=== PATIENT | male | born 2000 | race Caucasian/White ===

== ENCOUNTER 2022-11-13 22:22 | Emergency (ER) | payer MEDICAID, SELFPAY ==
[2022-11-13 22:24] VITALS: BP 141/87; PULSE 72; RESP 17; TEMP 36.6; O2SAT 97; BMI 27.3
--- NOTE | 2022-11-13 22:38 | XR_ITS ---
PROCEDURE INFORMATION: Exam: XR Chest Exam date and time: 11/13/2022 11:06 PM Age: 22 years old Clinical indication: Pain; Left-sided; Additional info: Left anterior lower chest wall pain TECHNIQUE: Imaging protocol: Radiologic exam of the chest. Views: 1 view. COMPARISON: No relevant prior studies available. FINDINGS: Lungs: Normal pulmonary expansion. Pulmonary vasculature grossly normal. No gross pulmonary infiltrates or edema pattern. Pleural spaces: No pleural effusion. No pneumothorax. Heart/Mediastinum: Heart size normal. No tracheal/mediastinal shift. Bones/joints: No acute osseous abnormalities are identified. IMPRESSION: No acute thoracic process.
[2022-11-13 22:41] LABS: Microscopic, Urine URINE MICROSCOPIC (MICROSCOPIC)
--- NOTE | 2022-11-13 22:46 | HMH.EDGENADL ---
Discharge Plan Disposition Patient Disposition: Home, Self-Care Chief Complaint: Urogenital-Male Prescriptions Prescriptions: No Action No Known Home Medications Referrals Follow up/Referrals: Provider,MD Estrella [Primary Care Provider] - See instructions Clinical Impressions Clinical Impression: Chest pain, pleuritic Instructions Patient Instructions: DI for Urinary Tract Infection (UTI), DI for Urinary Tract Infection in Children Discharge ED Provider: Wesley Sheriff General Adult HPI General Chief complaint: Urogenital-Male Stated complaint: Left side pain, shelton when urinate Time Seen by Provider: 11/13/22 22:33 Mode of Arrival: Family Vehicle Source of Information: Patient Limitations: No Limitations Description of Symptoms (Recalled from ER Triage Doc. by RN): Pt c/o L upper abd pain that has been present for 1 month. States it is painful under the ribs and when he sits up or coughs. Denies any SOA or dyspnea. Denies any fever, chills, or n/v/d. He reports burning and pain with urination. He is also concerned that his urine id dark brown or mt dew colored despite drinking large amount of water. Denies any penile discharge. History of Present Illness Onset (ago): month(s) (1) Location: chest (left) Severity: mild Quality: burning Related Data Home Medications Medication Instructions Recorded Confirmed No Known Home Medications 11/13/22 11/13/22 Allergies Allergy/AdvReac Type Severity Reaction Status Date / Time No Known Allergies Allergy Unverified 07/01/17 15:22 [facility] Disclaimer: The information contained in this section may have been updated after the patient was seen, as this information can be updated by other users. Social History Smoking Status: Current every day smoker alcohol intake: current current occupational status: employed Travel in the last 8 weeks: None ROS Obtained: Yes All systems reviewed & no additional complaints except as documented Physical Exam General General appearance: alert and in no apparent distress Head Head exam: atraumatic and normocephalic Eye Eye exam: Present normal appearance ENT ENT exam: Present normal exam Neck Neck exam: Present normal inspection Chest Chest inspection: Present tenderness (Left anterior lower) Respiratory Respiratory exam: Present normal lung sounds bilaterally; Absent respiratory distress Cardiovascular Cardiovascular exam: Present regular rate and normal rhythm Abdominal Exam Abdominal exam: Present soft; Absent distention or tenderness Extremities Exam Extremities exam: Present normal inspection Neurological Exam Neurological exam: Present alert, oriented X3 and CN II-XII intact Medical Decision Making Medical Records MR Comment: 22-year-old white male presents with a 1 month history of pain under his ribs. The patient notes that its worse with coughing or deep breath. He is also had some burning urination. Evaluations included a chest x-isaura which is interpreted as no acute disease also CBC CMP and urinalysis all of which are normal. Patient is lying comfortably in no distress. He has no primary care but we have encouraged that he will need to establish with 1 in the event that more testing needs to be scheduled and done or that a referral to another specialist may need to be done. Patient and his are in attendance both understand and are in agreement with this questions are answered and he is to follow-up with the primary care. Joss Inquiry Pt receiving controlled substance: No Joss was queried for this patient: No Vital Signs: 11/13/22 22:24 11/13/22 23:30 Temperature 97.9 F Temperature Source Oral Pulse Rate 62 Pulse Rate [Right] 72 Respiratory Rate 17 18 Blood Pressure 129/62 Blood Pressure [Right Arm] 141/87 H Blood Pressure Mean 84 Blood Pressure Mean [Right Arm] 105 Blood Pressure Source [
[2022-11-13 22:51] LABS: MANUAL DIFFERENTIAL MANUAL DIFFERENTIAL (MANUAL DIFF)
[2022-11-13 22:52] LABS: Appearance,Urine SL CLOUDY (Clear); Bilirubin,Urine Negative (Negative); Blood, Urine Negative (Negative); Color,Urine YELLOW (Yellow); Glucose,Urine (UA) Negative (Negative); Ketones,Urine Negative (Negative); Leukocyte Esterase,Urine Negative (Negative); Nitrate,Urine Negative (Negative); Protein,Urine Negative (Negative); Specific Gravity, Urine 1.015 (1.005-1.030); Urobilinogen,Urine 0.2 EU/dl (0.2)
[2022-11-13 22:54] LABS: Basophils % 0.6 % (0.1-2.0); Eosinophils # 0.1 K/mm3 (0.0-0.4); Eosinophils % 1.3 % (0.1-12.0); Hematocrit 43.5 % (42.0-52.0); Lymphocytes # 2.5 K/mm3 (0.7-4.5); Lymphocytes % 32.6 % (10-50); Mean Corpuscular HGB Conc 32.3 g/dL (31.8-35.4); Mean Corpuscular Hemoglobin 26.5 pg (27.0-31.2); Mean Corpuscular Volume 82.2 fl (80-94); Mean Platelet Volume 6.3 fl (7.4-10.4); Monocytes # 0.4 K/mm3 (0.1-1.0); Monocytes % 5.8 % (1.7-9.3); Neutrophils # 4.5 K/mm3 (1.8-7.8); Neutrophils % 59.7 % (37.0-80.0); Platelet Count 249 K/mm3 (142-424); Red Blood Count 5.29 M/mm3 (4.60-6.20); Red Cell Distribution Width 14.1 % (11.5-17.5); White Blood Count 7.6 K/mm3 (4.8-10.8)
[2022-11-13 22:58] LABS: Chloride 98 mmol/L (98-107); Sodium 136 mmol/L (136-145)
[2022-11-13 22:59] LABS: Potassium 3.9 mmoL/L (3.5-5.1)
[2022-11-13 23:01] LABS: Alanine Aminotransferase 24 U/L (12-78); Albumin Level 4.2 g/dl (3.5-5.0); Albumin/Globulin Ratio 1.7 (1.1-1.8); Alkaline Phosphatase 66 U/L (38-126); Anion Gap 15.9 mEq/L (5-15); Aspartate Amino Transferase 27 U/L (17-59); Bilirubin,Total 0.2 mg/dl (0.2-1.3); Blood Urea Nitrogen 20 mg/dl (9-20); Carbon Dioxide 26 mmol/L (22.0-30.0); Creatinine Clearance Estimated 130 mL/min (50-200); Estimated Glomerular Filt Rate 93 ml/min (>60); GFR (African American) 113 ML/MIN (>60); Globulin 2.5 g/dL (1.3-3.2); Total Protein,Serum 6.7 g/dl (6.3-8.2)
[2022-11-13 23:02] LABS: Calcium 8.8 mg/dl (8.4-10.2); Glucose 108 mg/dl (74-100)
[2022-11-13 23:07] LABS: Amorphous Sediment,Urine 1+ /lpf
[2022-11-13 23:20] LABS: Lymphocytes % 41 % (10-50); Monocytes % 4 % (2-9); Neutrophils % 55 % (42-76); Platelet Estimate Normal; RBC Morphology Normal; Total Cells Counted 100
[2022-11-13 23:30] VITALS: BP 129/62; PULSE 62; RESP 18; O2SAT 99
[2022-11-14 00:55] VITALS: BP 112/75; PULSE 73; RESP 16; TEMP 36.8; O2SAT 98
== END 2022-11-14 01:03 | disposition home or self-care (01) ==
PROVIDERS: Emergency Provider Emergency Medicine
DX: R07.81 Pleurodynia (principal); R10.12 Left upper quadrant pain; R30.0 Dysuria; F17.200 Nicotine dependence, unspecified, uncomplicated
CPT/HCPCS: 71045; 80053; 81001; 85007; 85014; 85018; 85048; 85049; 99284; 99285

== ENCOUNTER 2025-04-11 14:20 | Outpatient (CLI) | payer OTHER, SELFPAY ==
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
--- OUTSIDE RECORDS SUMMARY | 2025-03-10 12:00 | XMS_ITS | Encounter Summary ---
Author Organization Healthcare Address [address] [place] [address] Care Team Providers Care Sign Painter Helper Name Role Phone Pcp, No Primary Care Provider Unavailflavio e Ebony Ross LPN Unavailable Unavailable Encounter Details Date Type Department Care Team (Latest Contact Info) Description 03/10/2025 12:00 PM EDT - 03/10/2025 11:59 PM EDT Hospital En[facility] [address], [address] [place] [address] Pain in scapula; Clavicle pain Discharge Disposition: Home or Self Care Social History Tobacco Use Types Packs/Day Years [...] any time in the past 12 m [facility], were you homeless or living in a penitentiary (including now)? Patient declined 03/04/2025 Utilities Answer Date Recorded In the past 12 months has th e [employer] gas, oil, or water [employer] threatened to shut off services in your home? Patient declined 03/04/2025 Sex and Gender Information Value Date Recorded Sex Assigned at Not on file Legal Sex Male 7:37 PM EDT Gender Identity Not on file Sexual Orientation Not on file documented as of this encounter Medications at Time of Discharge acetaminophen (Tylenol) 500 MG tablet Take 2 tablets by mouth every 6 hours. 01/27/2025 baclofen (Lioresal) 10 MG tablet 02/22/2025 bisacodyl (Dulcolax) 10 MG suppository Insert 1 suppository into the rectum daily. 12 suppository 01/28/2025 enoxaparin (Lovenox) 30 MG/0.3ML solution prefilled syringe Inject 0.3 mL under the skin 2 times a day. 01/27/2025 escitalopram (Lexapro) 10 MG tablet Take 1 tablet by mouth daily. 01/28/2025 famotidine (Pepcid) 20 MG tablet 02/22/2025 hydrOXYzine pamoate (Vistaril) 25 MG capsule Take 1 capsule by mouth every 6 hours as needed for anxiety. 30 capsule 01/27/2025 lactulose (Chronulac) 10 GM/15ML oral solution 02/22/2025 Lidocaine Pain Relief 4 % patch 02/22/2025 lubiprostone (Amitiza) 24 MCG capsule 02/22/2025 melatonin tablet Take 3 tablets by mouth nightly. 01/27/2025 methocarbamol (Robaxin) 500 MG tablet Take 2 tablets by mouth every 6 hours. 01/27/2025 mirtazapine (Remeron) 15 MG tablet Take 1 tablet by mouth nightly. 01/27/2025 naloxone (Narcan) 4 mg/0.1 mL nasal spray 1. Give 1 spray in nostril for no/slow breathing or cannot wake after opioid use 2. Call 911 3. Repeat in other nostril if symptoms continue 1 each 01/27/2025 polyethylene glycol (Miralax) 17 GM/SCOOP powder 02/22/2025 QUEtiapine (SEROquel) 50 MG tablet Take 1 tablet by mouth 2 times a day AND 3 tablets nightly. 01/27/2025 senna-docusate (Victorina-Colace) 8.6-50 MG tablet Take 1 tablet by mouth 2 times a day. 01/27/2025 solifenacin (VESIcare) 10 MG tablet 02/22/2025 traZODone (Desyrel) 100 MG tablet 02/22/2025 traZODone (Desyrel) 50 MG tablet Take 1 tablet by mouth nightly. 01/27/2025 oxyCODONE (Roxicodone) 5 MG immediate release tablet Take 1 tablet by mouth every 8 hours as needed for moderate pain for up to 21 days. 63 tablet 03/04/2025 03/25/20 25 gabapentin (Neurontin) 300 MG capsule Take 1 capsule by mouth every 8 hours. 01/27/2025 04/06/20 25 gabapentin (Neurontin) 600 MG tablet Take 1 tablet by mouth 3 times a day. 02/22/2025 04/06/20 25 oxyCODONE (Roxicodone) 5 MG immediate release tablet Take 1 tablet by mouth as needed for moderate pain or severe pain. 03/08/2025 04/06/20 documented as of this encounter Plan of Treatment Upcoming Encounters Date Type Department Care Team (Late st Contact Info) Description 04/21/2025 1:50 PM EDT Appointment [facility] Radiology [address] [place] [address] 04/21/2025 2:30 PM EDT Office Visit [facility] Orthopaedic Surgery & Sports Medicine [address] [place] [address] Quan Martinez MD [address] [place] [address] 04/22/2025 2:30 PM EDT Office Visit [facility] [address] [place] [address] Dayna Cuevas 05/11/2025 2:00 PM EDT Office Visit [facility] [address] [facility] [place] [address] Bina Mercado DO [address] [facility] [address] [place] [address] 06/06/2025 2:30 PM EST Office Visit [facility] [address] [place] [address] Syd Vargas MD [address] [facility] 2nd [place] [address] 07/01/2025 12:40 PM EST Office Visit [facility] [address] [place] [address] Holland Mehta MD [address] [place] [address] documented as of this encounter Procedures Procedure Name Priority Date/Time Associated Diagnosis Comments XR SCAPULA LEFT Routine 03/10/2025 12:45 PM EDT Pain in scapula XR CLAVICLE LEFT Routine 03/10/2025 12:4 5 PM EDT Clavicle pain documented in this encounter Results * XR Clavicle Left (03/10/2025 12:45 PM EDT) Anatomical Region Laterality Modality Body, Clavicle Left Digital Radiogra phy Impressions 03/10/2025 1:01 PM EDT Redemonstration of healing midclavicular fracture with increased superior displacement. Healing nondisplaced scapular body fracture in unchanged alignment. CRITICAL RESULT: No. COMMUNICATION: Per this written report. Drafted by Ariel Flores on 03/10/2025 1:00 PM Final report signed by Ariel Flores on 03/10/2025 1:01 PM Narrative 03/10/2025 1:01 PM EDT CLINICAL INDICATION: pain TECHNIQUE: XR SCAPULA LEFT, XR CLAVICLE LEFT COMPARISON: December 27, 2024 FINDINGS: Redemonstration of mid clavicular fracture with mild increased radial displacement. Callus formation along the fracture likely represents healing. Minimally displaced fracture of the body of scapula with increased osseous bridging likely represents healing. Fracture is in unchanged alignment. No newly visualized fractures. No significant soft tissue swelling. Partially visualized spinal fusion hardware with no definite evidence of hardware loosening or failure. Procedure Note Airel Flores MD - 03/10/2025 CLINICAL INDICATION: pain TECHNIQUE: XR SCAPULA LEFT, XR CLAVICLE LEFT COMPARISON: December 27, 2024 FINDINGS: Redemonstration of mid clavicular fracture with mild increased radialdisplacement. Callus formation along the fracture likely representshealing. Minimally displaced fracture of the body of scapula withincreased osseous bridging likely represents healing. Fracture is inunchanged alignment. No newly visualized fractures. No significant softtissue swelling. Partially visualized spinal fusion hardware with nodefinite evidence of hardware loosening or failure. IMPRESSION: Redemonstration of healing midclavicular fracture with increased superiordisplacement. Healing nondisplaced scapular body fracture in unchanged alignment. CRITICAL RESULT: No. COMMUNICATION: Per this written report. Drafted by Ariel Flores on 03/10/2025 1:00 PM Final report signed by Ariel Flores on 03/10/2025 1:01 PM us Sofía ODONNELL IMG XR PROCEDURES Final Resu lt * XR Scapula Left (03/10/2025 12:45 PM EDT) Anatomical Region Laterality Modality Body, Scapula Left Digital Radiogra phy Impressions 03/10/2025 1:01 PM EDT Redemonstration of healing midclavicular fracture with increased superior displacement. Healing nondisplaced scapular body fracture in unchanged alignment. CRITICAL RESULT: No. COMMUNICATION: Per this written report. Drafted by Ariel Flores on 03/10/2025 1:00 PM Final report signed by Ariel Flores on 03/10/2025 1:01 PM Narrative 03/10/2025 1:01 PM EDT CLINICAL INDICATION: pain TECHNIQUE: XR SCAPULA LEFT, XR CLAVICLE LEFT COMPARISON: December 27, 2024 FINDINGS: Redemonstration of mid clavicular fracture with mild increased radial displacement. Callus formation along the fracture likely represents healing. Minimally displaced fracture of the body of scapula with increased osseous bridging likely represents healing. Fracture is in unchanged alignment. No newly visualized fractures. No significant soft tissue swelling. Partially visualized spinal fusion hardware with no definite evidence of hardware loosening or failure. Procedure Note Ariel Flores MD - 03/10/2025 CLINICAL INDICATION: pain TECHNIQUE: XR SCAPULA LEFT, XR CLAVICLE LEFT COMPARISON: December 27, 2024 FINDINGS: Redemonstration of mid clavicular fracture with mild increased radialdisplacement. Callus formation along the fracture likely representshealing. Minimally displaced fracture of the body of scapula withincreased osseous bridging likely represents healing. Fracture is inunchanged alignment. No newly visualized fractures. No significant softtissue swelling. Partially visualized spinal fusion hardware with nodefinite evidence of hardware loosening or failure. IMPRESSION: Redemonstration of healing midclavicular fracture with increased superiordisplacement. Healing nondisplaced scapular body fracture in unchanged alignment. CRITICAL RESULT: No. COMMUNICATION: Per this written report. Drafted by Ariel Flores on 03/10/2025 1:00 PM Final report signed by Ariel Flores on 03/10/2025 1:01 PM us Sofía ODONNELL IMG XR PROCEDURES Final Resu lt documented in this encounter Visit Diagnoses Diagnosis Pain in scapula Pain in joint, shoulder region Clavicle pain Disorder of bone and cartilage, unspecified documented in this encounter Additional Health Concerns Assessment Noted Time A fall risk assessment has been complete d for the patient 03/10/2025 12:58 PM EDT A Body Mass Index follow-up plan has been documented for the patient 03/19/2025 12:30 PM EDT documented as of this encounter Care Teams Sign Painter Helper Relationship Specialty Start Date End Date Pcp, Bhumi [address] [place] [address] PCP - General Family Medicine 11/26/24 03/27/25 Ebony Ross LPN VALUE-[employer]ED [place] [address] TCM Nurse 02/08/25 03/26/25 documented as of this encounter
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
--- OUTSIDE RECORDS SUMMARY | 2025-03-18 11:33 | XMS_ITS | Encounter Summary ---
Author Organization [facility] Address [address] [place] [address] Care Team Providers Care Photograph Editor Name Role Phone Pcp, No Primary Care Provider Unavailflavio e Ebony Ross LPN Unavailable Unavailable Encounter Details Date Type Department Care Team (Latest Contact Info) Description 03/18/2025 11:33 AM EDT - 03/18/2025 11:59 PM EDT Hospital [facility] [address] [place] [address] S/P cervical spinal fusion Discharge Disposition: Home or Self Care Social [...] any time in the past 12 m [facility], were you homeless or living in a [facility] (including now)? Patient declined 03/04/2025 Utilities Answer Date Recorded In the past 12 months has th e [employer], gas, oil, or water [email or web address] threatened to shut off services in your [...] moderate pain or severe pain. 03/08/2025 04/06/20 25 documented as of this encounter Plan of Treatment Upcoming Encounters Date Type Department Care Team (Late st Contact Info) Description 04/21/2025 1:50 PM EDT Appointment [facility] Radiology [address] [place] [address] 04/21/2025 2:30 PM EDT Office Visit [facility] Orthopaedic Surgery & Sports Medicine [address] [place] [address] Quan Martinez MD [address] [place] [address] 04/22/2025 2:30 PM EDT Office Visit [facility] [address] [place] [address] aDyna Cuevas 05/11/2025 2:00 PM EDT Office Visit [facility] [address] [facility] [place] [address] Bina Mercado DO [address] [facility] [address] [place] [address] 06/06/2025 2:30 PM EST Office Visit [facility] [address] [place] [address] Syd Vargas MD [address] [place] [phone] 07/01/2025 12:40 PM EST Office Visit [facility] [address] [place] [address] Holland Mehta MD [address] [place] [address] documented as of this encounter [...] cutting tasks x 3 visits. Occupational Therapy No Dayna Cuevas documented as of this encounter Procedures Procedure Name Priority Date/Time Associated Diagnosis Comments XR CERVICAL SPINE 2 OR 3 VIEWS Routine 03/18/2025 11:46 AM EDT S/P cervical spinal fusion documented in this encounter Results * XR Cervical Spine 2 or 3 Views (03/18/2025 11:46 AM EDT) Anatomical Region Laterality Modality Spine, C-spine Digital Radiogra phy Impressions 03/18/2025 2:17 PM EDT No visualized hardware complication. Similar alignment of the C5 fracture with evidence of healing. CRITICAL RESULT: No. COMMUNICATION: Per this written report. Drafted by Zita Abraham MD on 03/18/2025 2:15 PM Final report signed by Zita Abraham MD on 03/18/2025 2:17 PM Narrative 03/18/2025 2:17 PM EDT CLINICAL INDICATION: fusion TECHNIQUE: XR CERVICAL SPINE 2 OR 3 VIEWS COMPARISON: Radiographs from 01/06/2025 FINDINGS: Posterior fixation hardware spanning from C2 through T2. The lobar cervical spine is not well-visualized on lateral view due to overlying soft tissue. Similar alignment of the C5 anterior body fracture with some evidence of healing. No suspicious vertebral soft tissue swelling. No visualized hardware complication. Procedure Note Zita Abraham MD - 03/18/2025 CLINICAL INDICATION: fusion TECHNIQUE: XR CERVICAL SPINE 2 OR 3 VIEWS COMPARISON: Radiographs from 01/06/2025 FINDINGS: Posterior fixation hardware spanning from C2 through T2. The lobarcervical spine is not well-visualized on lateral view due to overlyingsoft tissue. Similar alignment of the C5 anterior body fracture with someevidence of healing. No suspicious vertebral soft tissue swelling. Novisualized hardware complication. IMPRESSION: No visualized hardware complication. Similar alignment of the C5 fracturewith evidence of healing. CRITICAL RESULT: No. COMMUNICATION: Per this written report. Drafted by Zita Abraham MD on 03/18/2025 2:15 PM Final report signed by Zita Abraham MD on 03/18/2025 2:17 PM Akua Shaw MANAGER RECRUITING IMG XR PROCEDURES Final Re sult documented in this encounter Visit Diagnoses Diagnosis S/P cervical spinal fusion Arthrodesis status documented in this encounter Additional Health Concerns Assessment Noted Time A fall risk assessment has been complete d for the patient 03/18/2025 12:00 PM EDT A Body Mass Index follow-up plan has been documented for the patient 03/21/2025 9:00 AM EDT documented as of this encounter Care Teams Photograph Editor Relationship Specialty Start Date End Date Pcp, No [address] [place] [address] PCP - General Family Medicine 11/26/24 03/27/25 Ebony Ross LPN VALUE-BASED [place] [address] TCM Nurse 02/08/25 03/26/25 documented as of this encounter
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
--- NOTE | 2025-04-11 14:24 | XR_ITS ---
FINAL REPORT CLINICAL HISTORY: pain when urinating, baseline kub evaluation COMPARISON: None FINDINGS: A single view of the abdomen was obtained. There is a nonobstructive bowel gas pattern. There are no abnormally dilated loops of small bowel. There are no abnormal calcifications. There are screws securing the sacroiliac joints bilaterally. There is a sideplate and screws securing the symphysis pubis. There is an IM andrew in the proximal right femur. IMPRESSION: Postsurgical joint changes as above. No abnormal calcifications. Reviewed, Interpreted and Dictated by Vinicius Perry MD Transcribed by Nuris Ryan Authenticated and [facility]
--- OUTSIDE RECORDS SUMMARY | 2025-04-11 14:24 | XMS_ITS | Encounter Summary ---
Author Organization Healthcare Address [address] [place] [address] Care Team Providers Care Director Process Engineering Name Role Phone Pcp, No Primary Care Provider Unavailflavio e Ebony Ross LPN Unavailable Unavailable Encounter Details Date Type Department Care Team (Late st Contact Info) Description 03/08/2025 Telephone [facility] Discharge Clinic [address] [place] [phone] Sumi Marmolejo RN GS - Emergency Room Social History Tobacco Use Types Packs/Day Years [...] any time in the past 12 m [facility], were you homeless or living in a usp (including now)? Patient declined 03/04/2025 Utilities Answer Date Recorded In the past 12 months has th e [email or web address], gas, oil, or water [employer] threatened to shut off services in your home? Patient declined 03/04/2025 Sex and Gender Information Value Date Recorded Sex Assigned at Not on file Legal Sex Male 7:37 PM EDT Gender Identity Not on file Sexual Orientation Not on file documented as of this encounter Miscellaneous Notes * Telephone Encounter - Sumi Marmolejo RN - 03/08/2025 2:53 PM EDT Faxed HH orders to: [address] [address] P: [phone] Patient message sent to pt's mother to updated of referral sent to this location/company. documented in this encounter Plan of Treatment Upcoming Encounters Date Type Department Care Team (Late st Contact Info) Description 04/21/2025 1:50 PM EDT Appointment [facility]iology [address] [place] [address] 04/21/2025 2:30 PM EDT Office Visit [facility] Orthopaedic Surgery & Sports Medicine [address], [address] [place] [address] Quan Martinez MD [address] [place] [address] 04/22/2025 2:30 PM EDT Office Visit [facility] [address] [place] [address] Dayna Cuevas 05/11/2025 2:00 PM EDT Office Visit Physical Medicine & Rehabilitation Clinic at [facility] [address] [facility] [place] [address] Bina Mercado DO [address] [facility] [address] [place] [address] 06/06/2025 2:30 PM EST Office Visit [facility] [address] [place] [address] Syd Vargas MD [address] [facility] 2nd [place] [address] 07/01/2025 12:40 PM EST Office Visit [facility] [address] [place] [address] Holland Mehta MD [address] [place] [address] documented as of this encounter Visit Diagnoses Not on filedocumented in this encounter Additional Health Concerns Assessment Noted Time A Body Mass Index follow-up plan has been documented for the patient 03/11/2025 10:42 AM EDT documented as of this encounter Care Teams Director Process Engineering Relationship Specialty Start Date End Date Pcp, [place] [address] PCP - General Family Medicine 11/26/24 03/27/25 Ebony Ross, [employer] [place] [address] TCM Nurse 02/08/25 03/26/25 documented as of this encounter
--- OUTSIDE RECORDS SUMMARY | 2025-04-11 14:25 | XMS_ITS | Encounter Summary ---
Author Organization Healthcare Address [address] [place] [address] Care Team Providers Care Tool Specialist Name Role Phone Pcp, No Primary Care Provider Unavailflavio e Ebony Ross LPN Unavailable Unavailable Encounter Details Date Type Department Care Team (Late st Contact Info) Description 03/09/2025 Telephone [facility] Discharge Clinic [address] [place] [phone] Sumi Marmolejo RN GS - Emergency [...] any time in the past [facility], were you homeless or living in a senior care (including now)? Patient declined 03/04/2025 Utilities Answer Date Recorded In the past 12 months has th e [employer], gas, oil, or water [employer] threatened to shut off services in your home? Patient declined 03/04/2025 Sex and Gender Information Value Date Recorded Sex Assigned at Not on file Legal Sex Male 7:37 PM EDT Gender Identity Not on file Sexual Orientation Not on file documented as of this encounter Miscellaneous Notes * Telephone Encounter - Sumi Marmolejo RN - 03/09/2025 8:41 AM EDT Faxed referral and pt notes to [facility] office documented in this encounter Plan of Treatment Upcoming Encounters Date Type Department Care Team (Late st Contact Info) Description 04/21/2025 1:50 PM EDT Appointment [facility] Radiology [address], [address] [place] [address] 04/21/2025 2:30 PM EDT Office Visit [facility] Orthopaedic Surgery & Sports Medicine [address] [place] [address] Quan Martinez MD [address] [place] [address] 04/22/2025 2:30 PM EDT Office Visit [facility] [address] [place] [address] Dayna Cuevas 05/11/2025 2:00 PM EDT Office Visit Physical Medicine & Rehabilitation Clinic at [facility] [address] [place] [address] Bina Mercado DO [address] [facility] [address] [place] [address] 06/06/2025 2:30 PM EST Office Visit [facility] [address] [place] [address] Syd Vargas MD [address] [facility] 2nd [place] [address] 07/01/2025 12:40 PM EST Office Visit [facility] [address] [place] [address] Holland Mehta MD [address] [place] [address] documented as of this encounter Visit Diagnoses Not on filedocumented in this encounter Additional Health Concerns Assessment Noted Time A Body Mass Index follow-up plan has been documented for the patient 03/11/2025 10:42 AM EDT documented as of this encounter Care Teams Tool Specialist Relationship Specialty Start Date End Date Pcp, [place] [address] PCP - General Family Medicine 11/26/24 03/27/25 Ebony Ross LPN [employer] [place] [place] [address] TCM Nurse 02/08/25 03/26/25 documented as of this encounter
--- OUTSIDE RECORDS SUMMARY | 2025-04-11 14:25 | XMS_ITS | Encounter Summary ---
Author Organization [facility] Address [address] [place] [address] Care Team Providers Care Software Clerk Name Role Phone Tammy Tran MD Primary Care Provider +1- [phone] Encounter Details Date Type Department Care Team (Latest Contact Info) Description 03/29/2025 Travel Social History Tobacco Use Types Packs/Day Years [...] were you homeless or living in a nursing home (including now)? Patient declined 03/04/2025 Utilities Answer [...] on file documented as of this encounter Plan of Treatment Upcoming Encounters Date Type Department Care Team (Late st Contact Info) Description 04/21/2025 1:50 PM EDT Appointment [facility] Radiology [address], 1st [place] [address] 04/21/2025 2:30 PM EDT Office Visit [facility] Orthopaedic Surgery & Sports Medicine [address], 1st Floor [address] [place] [address] Quan Martinez MD [address] [place] [address] 04/22/2025 2:30 PM EDT Office Visit [facility] [address] [place] [address] Dayna Cuevas 05/11/2025 2:00 PM EDT Office Visit [facility] [address] [place] [address] Bina Mercado DO [address] [place] [address] 06/06/2025 2:30 PM EST Office Visit [facility] [address] [place] [address] Syd Vargas MD [address] [facility] 2nd [place] [address] 07/01/2025 12:40 PM EST Office Visit [place] [facility] [address], 1st [place] [address] Holland Mehta MD [address] [place] [address] documented as of this encounter [...] documented as of this encounter Care Teams Software Clerk Relationship Specialty Start Date End Date Tammy Tran MD [address] [place] [address] PCP - General 03/28/25 documented as of this encounter
--- OUTSIDE RECORDS SUMMARY | 2025-04-11 14:25 | XMS_ITS | Encounter Summary ---
Author Organization [facility] Address [address] [place] [address] Care Team Providers Care Piece Goods Packer Name Role Phone Tammy Tran MD Primary Care Provider +1- [phone] Reason for Visit * Reason Onset Date Comments [facility] Same Day Appt/Overbook Request 04/01/2025 Encounter Details Date Type Department Care Team (Late st Contact Info) Description 04/01/2025 Telephone [facility] [address], 2nd [place] [address] Faye Hoskins PA [address] [place] [address] [facility] Same Day Appt/Overbook Request Social History Tobacco Use Types Packs/Day Years [...] any time in the past 12 m [facility], were you homeless or living in a senior living (including now)? Patient declined 03/04/2025 Utilities Answer Date Recorded In the past 12 months has th e [employer], gas, oil, or water [employer] threatened to shut off services in your home? Patient declined 03/04/2025 Sex and Gender Information Value Date Recorded Sex Assigned at Not on file Legal Sex Male 7:37 PM EDT Gender Identity Not on file Sexual Orientation Not on file documented as of this encounter Miscellaneous Notes * Telephone Encounter - Rocío Ham Pedro Luis - 04/04/2025 12:17 PM EDT Spoke with patients mother ... Having a hard time finding transportation to [place]. They are looking to see someone in [place] ( Urology) to see. * Telephone Encounter - Antolin Martinezah Jose - 04/01/2025 9:01 AM EDT Same Day Appt/Overbook Request Reason for Call: Pt asked to r/s appt Dr. Hoskins and asked if we can get them back in [place]? Thanks!! Best contact number: [phone] (home) Optimal time of day to reach caller: ANYTIME Additional comments/information from caller: None Note: Please do not reply to this message. Follow-up communication and further actions as a result of this message need to be communicated with the patient directly, if the patient is not active onMyChart. If the patient is active on MyChart, they will receive notification of the communication/outcome via [employer]. documented in this encounter Plan of Treatment Upcoming Encounters Date Type Department Care Team (Late st Contact Info) Description 04/21/2025 1:50 PM EDT Appointment [facility] Radiology [address], 1st [place] [address] 04/21/2025 2:30 PM EDT Office Visit [facility] Orthopaedic Surgery & Sports Medicine [address], 1st Floor [address] [place] [address] Quan Martinez MD [address] [place] [address] 04/22/2025 2:30 PM EDT Office Visit [facility] [address] [place] [address] Dayna Cuevas 05/11/2025 2:00 PM EDT Office Visit [facility] at [facility] [address] [place] [address] Antolin MercadoaDO [address] [place] [address] 06/06/2025 2:30 PM EST Office Visit [facility] [address] [place] [address] Syd Vargas MD [address] 2nd [place] [address] 07/01/2025 12:40 PM EST Office Visit [place] [facility] [address], 1st [place] [address] Holland Mehta MD [address] [place] [address] documented as of this encounter [...] documented as of this encounter Care Teams Piece Goods Packer Relationship Specialty Start Date End Date Tammy Tran MD [address] [place] [address], [place] [phone] PCP - General 03/28/25 documented as of this encounter
--- OUTSIDE RECORDS SUMMARY | 2025-04-11 14:25 | XMS_ITS | Encounter Summary ---
Author Organization [facility] Address [address] [place] [address] Care Team Providers Care Director Of Maintenance Name Role Phone Pcp, No Primary Care Provider Elissa e Ebony Ross LPN Unavailable Unavailable Reason for Visit * Reason Onset Date Comments Prior-authorization/insurance Verification 03/09 Encounter Details Date Type Department Care Team (Late st Contact Info) Description 03/09/2025 Telephone [facility] Primary Care [address] [place] [address] Brennen Lopez MD [address] [place] [address] Prior-authorization/ins urance Verification Social History Tobacco Use Types Packs/Day Years [...] any time in the past 12 m [facility], were you homeless or living in a group home (including now)? Patient declined 03/04/2025 Utilities [...] Info) Description 04/21/2025 1:50 PM EDT Appointment [facility] Radiology [address], 1st [place] [address] 04/21/2025 2:30 PM EDT Office Visit [facility] Orthopaedic Surgery & Sports Medicine [address], 1st Floor [address] [place] [address] Quan Martinez MD [address] [place] [address] 04/22/2025 2:30 PM EDT Office Visit [facility] [address] [place] [address] Harrison Dayna Chandler Pedro Luis 05/11/2025 2:00 PM EDT Office Visit [facility] Clinic at [facility] [address] [place] [address] Bina Mercado DO [address] [place] [address] 06/06/2025 2:30 PM EST Office Visit [facility] [address] [place] [address] Syd Vargas MD [address] 2nd [place] [address] 07/01/2025 12:40 PM EST Office Visit [place] [facility] [address], 1st [place] [address] Holland Mehta MD [address] [place] [address] documented as of this encounter Visit Diagnoses Not on filedocumented in this encounter Additional Health Concerns Assessment Noted Time A Body Mass Index follow-up plan has been documented for the patient 03/11/2025 10:42 AM EDT documented as of this encounter Care Teams Director Of Maintenance Relationship Specialty Start Date End Date Pcp, [place] [address] PCP - General Family Medicine 11/26/24 03/27/25 Ebony Ross LPN VALUE-BASED [place] [address] TCM Nurse 02/08/25 03/26/25 documented as of this encounter
--- OUTSIDE RECORDS SUMMARY | 2025-04-11 14:25 | XMS_ITS | Encounter Summary ---
Author Organization [facility] Address [address] [place] [address] Care Team Providers Care Ceo Ziff Davis Name Role Phone Pcp, No Primary Care Provider Unavailflavio e Ebony Ross LPN Unavailable Unavailable Encounter Details Date Type Department Care Team (Late st Contact Info) Description 03/21/2025 Plan of Care Documentation [facility] [address] [place] [address] Social History Tobacco Use Types Packs/Day Years [...] any time in the past 12 m [facility], were you homeless or living in a fpc (including now)? Patient declined 03/04/2025 Utilities Answer Date Recorded In the past 12 months has th e [employer], gas, oil, or water company threatened to [...] Info) Description 04/21/2025 1:50 PM EDT Appointment [facility] Radiology [address], 1st [place] [address] 04/21/2025 2:30 PM EDT Office Visit [facility] Orthopaedic Surgery & Sports Medicine [address], 1st Floor [address] [place] [address] Quan Martinez MD [address] [place] [address] 04/22/2025 2:30 PM EDT Office [facility] [place] [address] Dayna Cuevas 05/11/2025 2:00 PM EDT Office Visit [facility] [address] [place] [address] Bina Mercado DO [address] [place] [address] 06/06/2025 2:30 PM EST Office Visit [facility] [address] [place] [address] Syd Vargas MD [address] 2nd [place] [address] 07/01/2025 12:40 PM EST Office Visit [place] [facility] [address], 1st [place] [address] Holland Mehta MD [address] [place] [address] documented as of this encounter [...] documented as of this encounter Care Teams Ceo Ziff Davis Relationship Specialty Start Date End Date Pcp, No [address] [place] [address] PCP - General Family Medicine 11/26/24 03/27/25 Ebony Ross LPN [employer] [place] [address] TCM Nurse 02/08/25 03/26/25 documented as of this encounter
--- OUTSIDE RECORDS SUMMARY | 2025-04-11 14:25 | XMS_ITS | Encounter Summary ---
Author Organization [facility] Address [address] [place] [address] Care Team Providers Care Operator Coating Furnace Name Role Phone Pcp, No Primary Care Provider Unavailflavio e Ebony Ross LPN Unavailable Unavailable Encounter Details Date Type Department Care Team (Latest Contact Info) Description 03/07/2025 Travel Social History Tobacco Use Types Packs/Day [...] any time in the past 12 m [facility], were you homeless or living in a custodial (including now)? Patient declined 03/04/2025 Utilities Answer [...] Description 04/21/2025 1:[address] [facility] Radiology [address], 1st [place] [address] 04/21/2025 2:30 PM EDT Office Visit [facility] Orthopaedic Surgery & Sports Medicine [address], 1st Floor [address] [place] [address] Quan Martinez MD [address] [place] [address] 04/22/2025 2:30 PM EDT Office Visit [facility] [address] [place] [address] Dayna Cuevas 05/11/2025 2:00 PM EDT Office Visit [facility] Clinic at [facility] [address] [place] [address] Tereso Magdalene BinaDO [address] [place] [address] 06/06/2025 2:30 PM EST Office Visit [facility] [address] [place] [address] Syd Vargas MD [address] 2nd [place] [address] 07/01/2025 12:40 PM EST Office Visit [place] [facility] [address], 1st [place] [address] Holland Mehta MD [address] [place] [address] documented as of this encounter Visit Diagnoses Not on filedocumented in this encounter Additional Health Concerns Assessment Noted Time A Body Mass Index follow-up plan has been documented for the patient 03/11/2025 10:42 AM EDT documented as of this encounter Care Teams Operator Coating Furnace Relationship Specialty Start Date End Date Pcp, Bhumi [address] [place] [address] PCP - General Family Medicine 11/26/24 03/27/25 Ebony Ross LPN [employer] [address] TCM Nurse 02/08/25 03/26/25 documented as of this encounter
--- OUTSIDE RECORDS SUMMARY | 2025-04-11 14:25 | XMS_ITS | Encounter Summary ---
Author Organization [facility] Address [address] [place] [address] Care Team Providers Care Shellfish Dredge Operator Name Role Phone Pcp, No Primary Care Provider Unavailflavio e Ebony Ross LPN Unavailable Unavailable Encounter Details Date Type Department Care Team (Latest Contact Info) Description 03/17/2025 Travel Social History Tobacco Use Types Packs/Day [...] any time in the past 12 m [facility], were you homeless or living in a halfway (including now)? Patient declined 03/04/2025 Utilities Answer [...] Info) Description 04/21/2025 1:50 PM EDT Appointment [facility] Radiology [address], 1st [place] [address] 04/21/2025 2:30 PM EDT Office Visit [facility] Orthopaedic Surgery & Sports Medicine [address], 1st Floor [address] [place] [address] Quan Martinez MD [address] [place] [address] 04/22/2025 2:30 PM EDT Office Visit [facility] [address] [place] [address] Dayna Cuevas 05/11/2025 2:00 PM EDT Office Visit [facility] at [facility] [address] [place] [address] Antolin MercadoaDO [address] [place] [address] 06/06/2025 2:30 PM EST Office Visit [facility] [address] [place] [address] Syd Vargas MD [address] 2nd [place] [address] 07/01/2025 12:40 PM EST Office Visit [place] [facility] [address] 1st [place] [address] Holland Mehta MD [address] [place] [address] documented as of this encounter Visit Diagnoses Not on filedocumented in this encounter Additional Health Concerns Assessment Noted Time A fall risk assessment has been complete d for the patient 03/10/2025 12:58 PM EDT A Body Mass Index follow-up plan has been documented for the patient 03/21/2025 9:00 AM EDT documented as of this encounter Care Teams Shellfish Dredge Operator Relationship Specialty Start Date End Date Pcp, Bhumi [address] [place] [address] PCP - General Family Medicine 11/26/24 03/27/25 Ebony Ross LPN VALUE-[place] [place] [address] TCM Nurse 02/08/25 03/26/25 documented as of this encounter
--- OUTSIDE RECORDS SUMMARY | 2025-04-11 14:25 | XMS_ITS | Encounter Summary ---
Author Organization [facility] Address [address] [place] [address] Care Team Providers Care Sales Operations Assistant Name Role Phone Pcp, No Primary Care Provider Unavailflavio e Ebony Ross LPN Unavailable Unavailable Encounter Details Date Type Department Care Team (Late st Contact Info) Description 03/15/2025 Telephone [place] [facility] [address], 1st [place] [address] Doreen Trevino Social History Tobacco Use Types Packs/Day Years [...] any time in the past 12 m [facility], were you homeless or living in a residential (including now)? Patient declined 03/04/2025 Utilities Answer Date Recorded In the past 12 months has th e [employer], gas, oil, or water [employer] threatened to shut off services in your home? Patient declined 03/04/2025 Sex and Gender Information Value Date Recorded Sex Assigned at Not on file Legal Sex Male 7:37 PM EDT Gender Identity Not on file Sexual Orientation Not on file documented as of this encounter Miscellaneous Notes * Telephone Encounter - Doreen Trevino - 03/15/2025 1:39 PM EDT Patient confirmed appt 03/18/2025. documented in this encounter Plan of Treatment Upcoming Encounters Date Type Department Care Team (Late st Contact Info) Description 04/21/2025 1:50 PM EDT Appointment [facility] Radiology [address], 1st [place] [address] 04/21/2025 2:30 PM EDT Office Visit [facility] Orthopaedic Surgery & Sports Medicine [address], 1st Floor [address] [place] [address] Quan Martinez MD [address] [place] [address] 04/22/2025 2:30 PM EDT Office Visit [facility] [address] [place] [address] Harrison Chandler Dayna Pedro Luis 05/11/2025 2:00 PM EDT Office Visit [facility] Medicine [facility] Rehabilitation Clinic at [facility] [address] [place] [address] Bina Mercado DO [address] [facility] [address] [place] [address] 06/06/2025 2:30 PM EST Office Visit [facility] [address] [place] [address] Syd Vargas MD [address] [facility] 2nd [place] [address] 07/01/2025 12:40 PM EST Office Visit [place] [facility] [address], 1st [place] [address] Holland Mehta MD [address] [place] [address] documented as of this encounter Visit Diagnoses Not on filedocumented in this encounter Additional Health Concerns Assessment Noted Time A fall risk assessment has been complete d for the patient 03/10/2025 12:58 PM EDT A Body Mass Index follow-up plan has been documented for the patient 03/19/2025 12:30 PM EDT documented as of this encounter Care Teams Sales Operations Assistant Relationship Specialty Start Date End Date Pcp, Bhumi [address] [place] [address] PCP - General Family Medicine 11/26/24 03/27/25 Ebony Ross LPN VALUE-BASED [place] [address] TCM Nurse 02/08/25 03/26/25 documented as of this encounter
--- OUTSIDE RECORDS SUMMARY | 2025-04-11 14:25 | XMS_ITS | Encounter Summary ---
Author Organization [facility] Address [address] [place] [address] Care Team Providers Care Paver Name Role Phone Tammy Tran MD Primary Care Provider +1- [phone] Encounter Details Date Type Department Care Team (Latest Contact Info) Description 03/28/2025 Travel Social History Tobacco Use Types Packs/Day [...] any time in the past 12 m [facility], were you homeless or living in [...] (Past 1 Month) No 025 11:40 AM EDT Nadya Ray 2. Non-Specific Active Suici yaniv Thoughts (Past 1 Month) No 03/28/2025 11:40 AM EDT Hui Ray P 6. Suicidal Behavior (Lifetime) No 11:40 AM EDT Nadya Ray documented as of this encounter Plan of Treatment Upcoming Encounters Date Type Department Care Team (Late st Contact Info) Description 04/21/2025 1:[address] [facility] Radiology [address], 1st [place] [address] 04/21/2025 2:30 PM EDT Office Visit [facility] Orthopaedic Surgery & Sports Medicine [address], 1[address] [place] [address] Quan Martinez MD [address] [place] [address] 04/22/2025 2:30 PM EDT Office Visit [facility] [address] [place] [address] Dayna Cuevas 05/11/2025 2:00 PM EDT Office Visit [facility] at [facility] [address] [place] [address] Bina Mercado DO [address] [facility] [address] [place] [address] 06/06/2025 2:30 PM EST Office Visit [facility] [address] [place] [address] Syd Vargas MD [address] [facility] [place] [address] 07/01/2025 12:40 PM EST Office Visit [place] [facility] [address], 1st [place] [address] Holland Mehta MD [address] [place] [address] documented as of this encounter [...] documented as of this encounter Care Teams Paver Relationship Specialty Start Date End Date Tammy Tran MD [address] [place] [address] PCP - General 03/28/25 documented as of this encounter
--- OUTSIDE RECORDS SUMMARY | 2025-04-11 14:25 | XMS_ITS | Encounter Summary ---
Author Organization [facility] Address [address] [place] [address] Care Team Providers Care Jewelry Engraver Name Role Phone Pcp, No Primary Care Provider Unavailflavio e Ebony Ross LPN Unavailable Unavailable Encounter Details Date Type Department Care Team (Late st Contact Info) Description 03/15/2025 Telephone [facility] [address] [place] [address] Sumi Marmolejo, RN GS - Emergency Room Social History [...] any time in the past 12 m [facility], were you homeless or living in a [place] [facility] facility (including now)? Patient declined 03/04/2025 Utilities Answer Date Recorded In the past 12 months has th e [employer], gas, oil, or water [employer] threatened to shut off services in your home? Patient declined 03/04/2025 Sex and Gender Information Value Date Recorded Sex Assigned at Not on file Legal Sex Male 7:37 PM EDT Gender Identity Not on file Sexual Orientation Not on file documented as of this encounter Miscellaneous Notes * Telephone Encounter - Sumi Marmolejo RN - 03/15/2025 3:37 PM EDT Pt's mother, Sumi, requested copies of PT and HH referrals. Sent pt MyChart letter with HH and PT referrals as well as mailed to pt home address. documented in this encounter Plan of Treatment Upcoming Encounters Date Type Department Care Team (Late st Contact Info) Description 04/21/2025 1:[address] [facility] Radiology [address], 1st [place] [address] 04/21/2025 2:30 PM EDT Office Visit [facility] Orthopaedic Surgery & Sports Medicine [address], 1st Floor [address] [place] [address] Quan Martinez MD [address] [place] [address] 04/22/2025 2:30 PM EDT Office Visit [facility] [address] [place] [address] Dayna Cuevas 05/11/2025 2:00 PM EDT Office Visit [facility] Rehabilitation Clinic at [facility] [address] [facility] [place] [address] Bina Mercado DO [address] [facility] [address] [place] [address] 06/06/2025 2:30 PM EST Office Visit [facility] [address] [place] [address] Syd Vargas MD [address] 2nd [place] [address] 07/01/2025 12:40 PM EST Office Visit [place] [facility] [address], 1st [place] [address] Holland Mehta MD [address] [place] [address] documented as of this encounter Visit Diagnoses Not on filedocumented in this encounter Additional Health Concerns Assessment Noted Time A fall risk assessment has been complete d for the patient 03/10/2025 12:58 PM EDT A Body Mass Index follow-up plan has been documented for the patient 03/19/2025 12:30 PM EDT documented as of this encounter Care Teams Jewelry Engraver Relationship Specialty Start Date End Date Pcp, Bhumi [address] [place] [address] PCP - General Family Medicine 11/26/24 03/27/25 Ebony Ross LPN VALUE-[place] [place] [address] TCM Nurse 02/08/25 03/26/25 documented as of this encounter
--- OUTSIDE RECORDS SUMMARY | 2025-04-11 14:25 | XMS_ITS | Encounter Summary ---
Author Organization Healthcare Address [address] [place] [address] Care Team Providers Care Highwall Drill Operator Name Role Phone Pcp, No Primary Care Provider Unavailflavio e Ebony Ross LPN Unavailable Unavailable Encounter Details Date Type Department Care Team (Late st Contact Info) Description 03/15/2025 Telephone [facility] Discharge [facility] [address] [place] [address] Sumi Marmolejo, RN GS - Emergency [...] any time in the past 12 m [facility], were you homeless or living in a custodial (including now)? Patient declined 03/04/2025 Utilities Answer Date Recorded In the past 12 months has th e [employer], gas, oil, or water [employer] threatened to shut off services in your home? Patient declined 03/04/2025 Sex and Gender Information Value Date Recorded Sex Assigned at Not on file Legal Sex Male 7:37 PM EDT Gender Identity Not on file Sexual Orientation Not on file documented as of this encounter Miscellaneous Notes * Telephone Encounter - Sumi Marmolejo, RN - 03/15/2025 2:46 PM EDT Called [facility] PT regarding new pt referral, no answer, LVM to call clinic back. documented in this encounter Plan of Treatment Upcoming Encounters Date Type Department Care Team (Late st Contact Info) Description 04/21/2025 1:[address] [facility] Radiology [address], 1st [place] [address] 04/21/2025 2:30 PM EDT Office Visit [facility] Orthopaedic Surgery & Sports Medicine [address], 1st Floor [place] [address] [place] [address] Quan Martinez MD [address] [place] [address] 04/22/2025 2:30 PM EDT Office Visit [facility] [address] [place] [address] Dayna Cuevas 05/11/2025 2:00 PM EDT Office Visit [facility] at [facility] [address] [place] [address] Bina Mercado DO [address] [facility] [address] [place] [address] 06/06/2025 2:30 PM EST Office Visit [facility] [address] [place] [address] Syd Vargas MD [address] [facility] 2nd [place] [address] 07/01/2025 12:40 PM EST Office Visit [place] [facility] [address], 1st [place] [address] Holland Mehta MD [address] [place] [address] documented as of this encounter Visit Diagnoses Not on filedocumented in this encounter Additional Health Concerns Assessment Noted Time A fall risk assessment has been complete d for the patient 03/10/2025 12:58 PM EDT A Body Mass Index follow-up plan has been documented for the patient 03/19/2025 12:30 PM EDT documented as of this encounter Care Teams Highwall Drill Operator Relationship Specialty Start Date End Date Pcp, Bhumi [address] [place] [address] PCP - General Family Medicine 11/26/24 03/27/25 Ebony Ross LPN VALUE-BASED [place] [address] TCM Nurse 02/08/25 03/26/25 documented as of this encounter
--- OUTSIDE RECORDS SUMMARY | 2025-04-11 14:25 | XMS_ITS | Clinical Summary ---
Author Organization [facility] Address [address] [place] [address] Phone Care Team Providers Care Material Expeditor Name Role Phone Tom Riley MD Primary Care Provider [phone] Allergies No known active allergies Medications No known medications Encounters Date Type Department Care Team Description 03/30/2025 2:53 PM EDT - 03/30/2025 11:59 PM EDT Hospital Encounter [facility] Physical Therapy [address] [address] Bria Anna, PT Discharge Disposition: Home or Self Care 03/29/2025 Orders Only [address] [address] Bria Anna, PT from Last 3 Months Social History Tobacco Use Types Packs/Day Years Used Date Smoking Tobacco: Never Smokeless Tobacco: Never Sex and Gender Information Value Date Recorded Sex Assigned at Not on file Legal Sex Male 2:02 PM EST Gender Identity Not on file Sexual Orientation Not on file Last Filed Vital Signs Vital Sign Reading Time Taken Comments Blood Pressure 121/73 08/01/2017 2:40 PM EST Pulse 69 08/01/2017 2:40 PM EST Temperature 37.2 C (98.9 F) 08/01/2017 2:40 PM EST Respiratory Rate 20 08/01/2017 2:40 PM EST Oxygen Saturation 100% 08/01/2017 2:40 PM EST Inhaled Oxygen Concentration - - Weight 59 kg (130 lb) 08/01/2017 2:06 PM EST Height 175.3 cm (5' 9 ) 08/01/2017 2:06 PM EST Body Mass Index 19.2 08/01/2017 2:06 PM EST Plan of Treatment Health Maintenance Due Date Last Done Comments Annual Wellness Exam 2003 HPV (3 - Male 3-dose series) 08/07/2016 04/24/2016, 02/05/2016 COVID-19 Vaccine (3 - season) 2025 10/25/2021, 02/11/2021 DTaP/TDaP/Td (10 - Td or Tdap) 12/27/2034 12/27/2024, 04/02/2021, 08/24/2013, Additional history exists Hepatitis B Vaccine Completed 12/18/2001, 02/03/2001, 2000 Meningococcal B Vaccine Aged Out 01/11/2025 No l onger eligible based on patient's age to complete this topic Pneumococcal Vaccine 0-49 Aged Out 2024, 10/16/2001, 04/10/2001, Additional history exists No longer eligible based on patient's age to complete this topic Influenza Vaccine Completed 03/28/2025, 04/29/2018 Insurance Care Teams Material Expeditor Relationship Specialty Start Date End Date Tom Riley MD [id number] [place] [address] PCP - General Family Medicine 08/01/17
--- OUTSIDE RECORDS SUMMARY | 2025-04-11 14:25 | XMS_ITS | Encounter Summary ---
Author Organization Healthcare Address [address] [place] [address] Care Team Providers Care Sleeve Presser Operator Name Role Phone Pcp, No Primary Care Provider Unavailflavio e Ebony Ross LPN Unavailable Unavailable Encounter Details Date Type Department Care Team (Late st Contact Info) Description 03/15/2025 Telephone [facility] Discharge Clinic [address] [place] [address] Sumi Marmolejo, RN GS - Emergency [...] any time in the past 12 m [facility], were you homeless or living in a assisted (including now)? Patient declined 03/04/2025 Utilities Answer Date Recorded In the past 12 months has th e [employer], gas, oil, or water [employer] threatened to shut off services in your [...] Info) Description 04/21/2025 1:50 PM EDT Appointment [facility] Radiology [address], 1st [place] [address] 04/21/2025 2:30 PM EDT Office Visit [facility] Orthopaedic Surgery & Sports Medicine [address], 1st Floor [address] [place] [address] Quan Martinez MD [address] [place] [address] 04/22/2025 2:30 PM EDT Office Visit [facility] [address] [place] [address] Dayna Cuevas 05/11/2025 2:00 PM EDT Office Visit [facility] [address] [place] [address] Tereso Del Castillo BinaDO [address] [place] [address] 06/06/2025 2:30 PM EST Office Visit [facility] [address] [place] [address] Syd Vargas MD [address] 2nd [place] [address] 07/01/2025 12:40 PM EST Office Visit [facility] [address], 1st [place] [address] Holland Mehta MD [address] [place] [address] documented as of this encounter Visit Diagnoses Not on filedocumented in this encounter Additional Health Concerns Assessment Noted Time A fall risk assessment has been complete d for the patient 03/10/2025 12:58 PM EDT A Body Mass Index follow-up plan has been documented for the patient 03/19/2025 12:30 PM EDT documented as of this encounter Care Teams Sleeve Presser Operator Relationship Specialty Start Date End Date Pcp, Bhumi [address] [place] [address] PCP - General Family Medicine 11/26/24 03/27/25 Ebony Ross LPN VALUE-[employer]ED [place] [address] TCM Nurse 02/08/25 03/26/25 documented as of this encounter
--- OUTSIDE RECORDS SUMMARY | 2025-04-11 14:25 | XMS_ITS | Encounter Summary ---
Author Organization [facility] Address [address] [place] [address] Care Team Providers Care Fishing Instructor Name Role Phone Tammy Tran MD Primary Care Provider [phone] Reason for Referral * Consultation (Routine) - Authorized Specialty Diagnoses / Procedures Referred By Juno norman Referred To Contact Physical Therapy Diagnoses Injury of cervical spinal cord, Tammy Gonzales MD [address] [place] [address] Phone: tel: fax: Referral ID Status Reason Start Date Expiration Date Visits Requested Visits Authorized [id number] Authorized Consult and Treat 04/04/2025 10/04/2026 1 1 Scheduling Instructions For [facility] outpatient as no one where they live feels comfortable doing his therapy due to spinal cord injury * Consultation (Routine) - Authorized Specialty Diagnoses / Procedures Referred By Juno norman Referred To Contact Urology Diagnoses Urinary retention with incomplete bladder emptying Injury of cervical spinal cord, Tammy Gonzales MD [address] [place] [address] Phone: tel: fax: Referral ID Status Reason Start Date Expiration Date Visits Requested Visits Authorized [id number] Authorized Specialty Services Required 04/04/2025 10/04/2026 1 1 Scheduling Instructions Pt with spinal cord injury. Needs urology for urinary retention. Desires to see dr. Fields emily lane Encounter Details Date Type Department Care Team (Late st Contact Info) Description 04/04/2025 Orders Only [facility] [address] [address] Tammy Tran MD [address] [address] Urinary retention with incomplete bladder emptying (Primary Dx); Injury of cervical spinal cord, sequela (CMS/HCC) Social History Tobacco Use Types Packs/Day [...] any time in the past 12 m [facility], were you homeless or living in a retirement (including now)? Patient declined 03/04/2025 Utilities Answer [...] Info) Description 04/21/2025 1:50 PM EDT Appointment [facility] Radiology [address], 1st [place] [address] 04/21/2025 2:30 PM EDT Office Visit [facility] Orthopaedic Surgery & Sports Medicine [address], 1st [address] [place] [address] Quan Martinez MD [address] [place] [address] 04/22/2025 2:30 PM EDT Office Visit [facility] [address] [place] [address] Dayna Cuevas 05/11/2025 2:00 PM EDT Office Visit [facility] [address] [place] [address] Bina Mercado DO [address] [place] [address] 06/06/2025 2:30 PM EST Office Visit [facility] [address] [place] [address] Syd Vargas MD [address] 2nd [place] [address] 07/01/2025 12:40 PM EST Office Visit [place] [facility] [address], 1st [place] [address] Holland Mehta MD [address] [place] [address] Scheduled Referrals Name Type Priority Associated Diagnoses Order Schedule Ambulatory referral to Urology Outpatient Referral Routine Urinary retention with incomplete bladder emptying Injury of cervical spinal cord, sequela (CMS/HCC) Expected: 04/04/2025 (Approximate), Expires: 10/06/2026 Ambulatory referral to Physical Therapy Outpatient Referral Routine Injury of cervical spinal cord, sequela (CMS/HCC) 1 Occurrences starting 04/04/2025 until 10/06/2026 documented as of this encounter Goals Goal [...] of this encounter Visit Diagnoses Diagnosis Urinary retention with incomplete bladder emptying- Primary Incomplete bladder emptying Injury of cervical spinal cord, sequela documented in this encounter Additional Health Concerns Assessment Noted Time PHQ-9 Depression Total Score: 0 03/28/20 11:40 AM EDT A fall risk assessment has been complete d for the patient 03/18/2025 12:00 PM EDT A Body Mass Index follow-up plan has been documented for the patient 03/29/2025 4:53 PM EDT documented as of this encounter Care Teams Fishing Instructor Relationship Specialty Start Date End Date Tammy Tran MD [address] [place] [phone] PCP - General 03/28/25 documented as of this encounter
--- OUTSIDE RECORDS SUMMARY | 2025-04-11 14:25 | XMS_ITS | Encounter Summary ---
Author Organization Healthcare Address [address] [place] [address] Care Team Providers Care Public Health Program Manager Name Role Phone Pcp, No Primary Care Provider Unavailflavio e Ebony Ross LPN Unavailable Unavailable Encounter Details Date Type Department Care Team (Late st Contact Info) Description 03/11/[address] [facility] [address] [place] [address] Sumi Marmolejo RN GS - Emergency [...] time in the past 12 m [facility], were you homeless or living in a senior care (including now)? Patient declined 03/04/2025 Utilities Answer Date Recorded In the past 12 months has th e [employer], gas, oil, or water [employer] threatened to shut off services in your home? Patient declined 03/04/2025 Sex and Gender Information Value Date Recorded Sex Assigned at Not on file Legal Sex Male 7:37 PM EDT Gender Identity Not on file Sexual Orientation Not on file documented as of this encounter Miscellaneous Notes * Telephone Encounter - Sumi Marmolejo RN - 03/11/2025 3:19 PM EDT [facility] in [place] to see if they take the pt's insurance, they unfortunately do not but recommended [facility] PT does cover the pt's specific type of insurance, to their knowledge. RN called [facility] PT, no answer, as they were closed, LVM to call back [facility] when reopens on Friday, to confirm they take pt insurance and obtain fax # to send referral with related documents. documented in this encounter Plan of Treatment Upcoming Encounters Date Type Department Care Team (Late st Contact Info) Description 04/21/2025 1:50 PM EDT Appointment [facility] [address], 1st [place] [address] 04/21/2025 2:30 PM EDT Office Visit [facility] Orthopaedic Surgery & Sports Medicine [address], 1st Floor [address] [place] [address] Quan Martinez MD [address] [place] [address] 04/22/2025 2:30 PM EDT Office Visit [facility] [address] [place] [address] Dayna Cuevas 05/11/2025 2:00 PM EDT Office Visit [facility] Medicine [facility] Rehabilitation Clinic at [facility] [address] [facility] [place] [address] Bina Mercado DO [address] [facility] [address] [place] [address] 06/06/2025 2:30 PM EST Office Visit [facility] [address] [place] [address] Syd Vargas MD [address] 2nd [place] [address] 07/01/2025 12:40 PM EST Office Visit [facility] [address], 1st [place] [address] Holland Mehta MD [address] [place] [address] documented as of this encounter Visit Diagnoses Not on filedocumented in this encounter Additional Health Concerns Assessment Noted Time A fall risk assessment has been complete d for the patient 03/10/2025 12:58 PM EDT A Body Mass Index follow-up plan has been documented for the patient 03/19/2025 12:30 PM EDT documented as of this encounter Care Teams Public Health Program Manager Relationship Specialty Start Date End Date Pcp, [place] [address] PCP - General Family Medicine 11/26/24 03/27/25 Ebony Ross LPN VALUE[employer] [place] [address] TCM Nurse 02/08/25 03/26/25 documented as of this encounter
--- OUTSIDE RECORDS SUMMARY | 2025-04-11 14:25 | XMS_ITS | Encounter Summary ---
Author Organization Healthcare Address [address] [place] [address] Care Team Providers Care Inspector Floor Name Role Phone Pcp, No Primary Care Provider Unavailflavio e Ebony Ross LPN Unavailable Unavailable Encounter Details Date Type Department Care Team (Late st Contact Info) Description 03/11/2025 Telephone [facility] Discharge Clinic [address] [place] [address] Sumi Marmolejo RN GS - Emergency [...] time in the past 12 m [facility], were you homeless or living in a custodial (including now)? Patient declined 03/04/2025 Utilities Answer Date Recorded In the past 12 months has th e [employer], gas, oil, or water [employer] threatened to shut off services in your home? Patient declined 03/04/2025 Sex and Gender Information Value Date Recorded Sex Assigned at Not on file Legal Sex Male 7:37 PM EDT Gender Identity Not on file Sexual Orientation Not on file documented as of this encounter Miscellaneous Notes * Telephone Encounter - Sumi Marmolejo, RN - 03/11/2025 10:15 AM EDT Attempted calling pt's mother, Sumi, to discuss referral statuses. No answer. LVM to call back documented in this encounter Plan of Treatment Upcoming Encounters Date Type Department Care Team (Late st Contact Info) Description 04/21/2025 1:50 PM EDT Appointment [facility] Radiology [address], 1st [place] [address] 04/21/2025 2:30 PM EDT Office Visit [facility] Orthopaedic Surgery & Sports Medicine [address], 1st [address] [place] [address] [place] [address] Quan Martinez MD [address] [place] [address] 04/22/2025 2:30 PM EDT Office Visit [facility] [address] [place] [address] Dayna Cuevas 05/11/2025 2:00 PM EDT Office Visit [facility] Clinic at [facility] [address] [place] [address] Bina Mercado DO [address] [facility] [address] [place] [address] 06/06/2025 2:30 PM EST Office Visit [facility] [address] [place] [address] Syd Vargas MD [address] [facility] 2nd [place] [address] 07/01/2025 12:40 PM EST Office Visit [facility] [address], 1st [place] [address] Holland Mehta MD [address] [place] [address] documented as of this encounter Visit Diagnoses Not on filedocumented in this encounter Additional Health Concerns Assessment Noted Time A fall risk assessment has been complete d for the patient 03/10/2025 12:58 PM EDT A Body Mass Index follow-up plan has been documented for the patient 03/19/2025 12:30 PM EDT documented as of this encounter Care Teams Inspector Floor Relationship Specialty Start Date End Date Pcp, Bhumi [address] [place] [address] PCP - General Family Medicine 11/26/24 03/27/25 Ebony Ross, EFFIE VALUE-[place]ED [place] [address] TCM Nurse 02/08/25 03/26/25 documented as of this encounter
--- OUTSIDE RECORDS SUMMARY | 2025-04-11 14:25 | XMS_ITS | Encounter Summary ---
Author Organization Healthcare Address [address] [place] [id number] Care Team Providers Care Bat Carrier Name Role Phone Pcp, No Primary Care Provider Elissa e Ebony Ross LPN Unavailable Unavailable Reason for Visit * Reason Onset Date Comments Prior-authorization/insurance Verification 03/08 Encounter Details Date Type Department Care Team (Late st Contact Info) Description 03/08/2025 Telephone [facility] [address] [place] [address] Isabelal Rivera, PharmD Inpatient Pharmacy [place] [phone] Prior-authorization/ins urance Verification Social History Tobacco Use [...] any time in the past 12 m [facility], were you homeless or living [...] Info) Description 04/21/2025 1:50 PM EDT Appointment [facility] Radiology [address], 1st [place] [address] 04/21/2025 2:30 PM EDT Office Visit [facility] Orthopaedic Surgery & Sports Medicine [address], 1st Floor [address] [place] [address] Quan Martinez MD [address] [place] [address] 04/22/2025 2:30 PM EDT Office Visit [facility] [address] [place] [address] Harrison Dayna Chandler Pedro Luis 05/11/2025 2:00 PM EDT Office Visit [facility] at [facility] [address] [place] [address] Bina Mercado DO [address] [place] [address] 06/06/2025 2:30 PM EST Office Visit [facility] [address] [place] [address] Syd Vargas MD [address] 2nd [place] [address] 07/01/2025 12:40 PM EST Office Visit [facility] [address], 1st [place] [address] Holland Mehta MD [address] [place] [address] documented as of this encounter Visit Diagnoses Not on filedocumented in this encounter Additional Health Concerns Assessment Noted Time A Body Mass Index follow-up plan has been documented for the patient 03/11/2025 10:42 AM EDT documented as of this encounter Care Teams Bat Carrier Relationship Specialty Start Date End Date Pcp, Bhumi [address] [place] [address] PCP - General Family Medicine 11/26/24 03/27/25 Ebony Ross LPN VALUE-[employer]ED [place] [address] TCM Nurse 02/08/25 03/26/25 documented as of this encounter
--- OUTSIDE RECORDS SUMMARY | 2025-04-11 14:25 | XMS_ITS | Encounter Summary ---
Author Organization [facility] Address [address] [place] [address] Care Team Providers Care Supervisor Endless Track Vehicle Name Role Phone Pcp, No Primary Care Provider Unavailflavio e Ebony Ross LPN Unavailable Unavailable Encounter Details Date Type Department Care Team (Latest Contact Info) Description 03/18/2025 Travel Social History Tobacco Use Types Packs/Day [...] Info) Description 04/21/2025 1:50 PM EDT Appointment [facility] Radiology [address], 1st [place] [address] 04/21/2025 2:30 PM EDT Office Visit [facility] Orthopaedic Surgery & Sports Medicine [address], 1st Floor [address] [place] [address] Quan Martinez MD [address] [place] [address] 04/22/2025 2:30 PM EDT Office Visit [facility] [address] [place] [address] Dayna Cuevas 05/11/2025 2:00 PM EDT Office Visit [facility] Clinic at [facility] [address] [place] [address] Antolin MercadoaDO [address] [place] [address] 06/06/2025 2:30 PM EST Office Visit [facility] [address] [place] [address] Syd Vargas MD [address] 2nd [place] [address] 07/01/2025 12:40 PM EST Office Visit [place] [facility] [address], 1st [place] [address] Holland Mehta MD [address] [place] [address] documented as of this encounter Visit Diagnoses Not on filedocumented in this encounter Additional Health Concerns Assessment Noted Time A fall risk assessment has been complete d for the patient 03/18/2025 12:00 PM EDT A Body Mass Index follow-up plan has been documented for the patient 03/21/2025 9:00 AM EDT documented as of this encounter Care Teams Supervisor Endless Track Vehicle Relationship Specialty Start Date End Date Pcp, Bhumi [address] [place] [address] PCP - General Family Medicine 11/26/24 03/27/25 Ebony Ross LPN VALUE-[employer] [place] [address] TCM Nurse 02/08/25 03/26/25 documented as of this encounter
--- OUTSIDE RECORDS SUMMARY | 2025-04-11 14:25 | XMS_ITS | Encounter Summary ---
Author Organization Healthcare Address [address] [place] [address] Care Team Providers Care Back Stayer Name Role Phone Pcp, No Primary Care Provider Unavailflavio e Ebony Ross LPN Unavailable Unavailable Encounter Details Date Type Department Care Team (Late st Contact Info) Description 03/15/2025 Orders Only [facility] Discharge Clinic [address] [place] [address] Brennen Lopez MD [address] [place] [address] Social History Tobacco Use Types Packs/Day Years [...] in the past 12 m [facility], were you homeless or living [...] Info) Description 04/21/2025 1:50 PM EDT Appointment [facility] Radiology [address], 1st [place] [address] 04/21/2025 2:30 PM EDT Office Visit [facility] Orthopaedic Surgery & Sports Medicine [address], 1st Floor [address] [place] [address] Quan Martinez MD [address] [place] [address] 04/22/2025 2:30 PM EDT Office Visit [facility] [address] [place] [address] Dayna Cuevas 05/11/2025 2:00 PM EDT Office Visit [facility] [address] [place] [address] Bina Mercado DO [address] [place] [address] 06/06/2025 2:30 PM EST Office Visit [facility] [address] [place] [address] Syd Vargas MD [address] [facility] 2nd [place] [address] 07/01/2025 12:40 PM EST Office Visit [place] [facility] [address], 1st [place] [address] Holland Mehta MD [address] [place] [address] documented as of this encounter [...] documented as of this encounter Care Teams Back Stayer Relationship Specialty Start Date End Date Pcp, [place] [address] PCP - General Family Medicine 11/26/24 03/27/25 Ebony Ross LPN VALUE[employer] [address] TCM Nurse 02/08/25 03/26/25 documented as of this encounter
--- OUTSIDE RECORDS SUMMARY | 2025-04-11 14:25 | XMS_ITS | Encounter Summary ---
Author [place] [address] Care Team Providers Care Ic Designer Standard Cells Name Role Phone Tom Riley MD Primary Care Provider [phone] Encounter Details Date Type Department Care Team (Late st Contact Info) Description 03/29/2025 Orders Only [facility] Physical Therapy [address] [place] [address] Bria Anna, PT Social History Tobacco Use Types Packs/Day Years Used Date Smoking Tobacco: Never Smokeless Tobacco: Never Sex and Gender Information Value Date Recorded Sex Assigned at Not on file Legal Sex Male 2:02 PM EST Gender Identity Not on file Sexual Orientation Not on file documented as of this encounter Progress Notes * Provider, Unknown - 03/30/2025 3:05 PM EDT documented in this encounter Plan of Treatment Not on file documented as of this encounter Visit Diagnoses Not on filedocumented in this encounter Care Teams Ic Designer Standard Cells Relationship Specialty Start Date End Date Tom Riley MD [address] [place] [address] PCP - General Family Medicine 08/01/17 documented as of this encounter
--- OUTSIDE RECORDS SUMMARY | 2025-04-11 14:25 | XMS_ITS | Encounter Summary ---
Author Organization [facility] Address [address] [place] [address] Care Team Providers Care Banker Mason Name Role Phone Pcp, No Primary Care Provider Unavailflavio e Ebony Ross LPN Unavailable Unavailable Encounter Details Date Type Department Care Team (Latest Contact Info) Description 03/10/2025 Travel Social History Tobacco Use Types Packs/Day [...] time in the past 12 m [facility], were you homeless or living in a intermediate (including now)? Patient declined 03/04/2025 Utilities Answer [...] [facility] Radiology [address], 1st [place] [address] 04/21/2025 2:30 PM EDT Office Visit [facility] Orthopaedic Surgery & Sports Medicine [address], 1st Floor [address] [place] [address] Quan Martinez MD [address] [place] [address] 04/22/2025 2:30 PM EDT Office Visit [facility] [address] [place] [address] Dayna Cuevas 05/11/2025 2:00 PM EDT Office Visit [facility] at [facility] [address] [place] [address] Antolin MercadoaDO [address] [place] [address] 06/06/2025 2:30 PM EST Office Visit [facility] [address] [place] [address] Syd Vargas MD [address] 2[address] [place] [address] 07/01/2025 12:40 PM EST Office Visit [place] [facility] [address], 1st [place] [address] Holland Mehta MD [address] [place] [address] documented as of this encounter Visit Diagnoses Not on filedocumented in this encounter Additional Health Concerns Assessment Noted Time A fall risk assessment has been complete d for the patient 03/10/2025 12:58 PM EDT A Body Mass Index follow-up plan has been documented for the patient 03/19/2025 12:30 PM EDT documented as of this encounter Care Teams Banker Mason Relationship Specialty Start Date End Date Pcp, Bhumi [address] [place] [address] PCP - General Family Medicine 11/26/24 03/27/25 Ebony Ross LPN VALUE-[place] [place] [address] TCM Nurse 02/08/25 03/26/25 documented as of this encounter
--- OUTSIDE RECORDS SUMMARY | 2025-04-11 14:25 | XMS_ITS | Encounter Summary ---
Author Organization [facility] Address [address] [place] [address] Care Team Providers Care Kettle Chipper Name Role Phone Tammy Tran MD Primary Care Provider [phone] Encounter Details Date Type Department Care Team (Late st Contact Info) Description 04/01/2025 Telephone [facility] Medicine [address] [place] [address] Tammy Tran MD [address] [place] [address] Social History Tobacco Use Types Packs/Day Years [...] in the past 12 m [facility], were you homeless or living in a custodial (including now)? Patient declined 03/04/2025 Utilities Answer Date Recorded In the past 12 months has th e [employer], gas, oil, or water [employer] threatened to shut off services in your home? Patient declined 03/04/2025 Sex and Gender Information Value Date Recorded Sex Assigned at Not on file Legal Sex Male 7:37 PM EDT Gender Identity Not on file Sexual Orientation Not on file documented as of this encounter Miscellaneous Notes * Telephone Encounter - Nadya Ray - 04/01/2025 3:[address] Tran has spoken with the patients mother. They are trying to decide where best to send pt as there is no Urologist in [place] at this time. * Telephone Encounter - Ramona Wasserman P - 04/01/2025 10:29 AM EDT Clinical Concern/Question Reason for Call: Mother requesting a call back to discuss referral issues. Stated pt needs another referral to urology but they want to go somewhere in [place]. Also asking if they can get anotherphysical therapy referral. Pls advise. Thank you! Best contact number: [phone] (mobile) Optimal time of day to reach caller: ANYTIME Additional comments/information from caller: None Note: Please do not reply to this message. Follow-up communication and further actions as a result of this message need to be communicated with the patient directly, if the patient is not active onMyChart. If the patient is active on MyChart, they will receive notification of the communication/outcome via [employer]. documented in this encounter Plan of Treatment Upcoming Encounters Date Type Department Care Team (Late st Contact Info) Description 04/21/2025 1:50 PM EDT Appointment [facility] Radiology [address], 1st [place] [address] 04/21/2025 2:30 PM EDT Office Visit [facility] Orthopaedic Surgery & Sports Medicine [address], 1[address] [place] [address] Quan Martinez MD [address] [place] [address] 04/22/2025 2:30 PM EDT Office Visit [facility] [address] [place] [address] Dayna Cuevas 05/11/2025 2:00 PM EDT Office Visit [facility] at [facility] [address] [place] [address] Bina Mercado DO [address] [place] [address] 06/06/2025 2:30 PM EST Office Visit [facility] [address] [place] [address] Syd Vargas MD [address] 2nd [place] [address] 07/01/2025 12:40 PM EST Office Visit [place] [facility] [address], 1st [place] [address] Holland Mehta MD [address] [place] [address] documented as of this encounter [...] documented as of this encounter Care Teams Kettle Chipper Relationship Specialty Start Date End Date Tammy Tran MD [address] [place] [address] PCP - General 03/28/25 documented as of this encounter
--- OUTSIDE RECORDS SUMMARY | 2025-04-11 14:25 | XMS_ITS | Encounter Summary ---
Author Organization Healthcare Address [address] [place] [address] Care Team Providers Care Nuclear Powerplant Mechanic Helper Name Role Phone Pcp, No Primary Care Provider Unavailflavio e Ebony Ross LPN Unavailable Unavailable Encounter Details Date Type Department Care Team (Late st Contact Info) Description 03/08/2025 Telephone [facility] Discharge Clinic [address] [place] [address] Sumi Marmolejo RN GS - Emergency [...] in the past 12 m [facility], were you homeless or living in a penitentiary (including now)? Patient declined 03/04/2025 Utilities Answer Date Recorded In the past 12 months has th e [employer], gas, oil, or water [employer] threatened to shut off services in your home? Patient declined 03/04/2025 Sex and Gender Information Value Date Recorded Sex Assigned at Not on file Legal Sex Male 7:37 PM EDT Gender Identity Not on file Sexual Orientation Not on file documented as of this encounter Miscellaneous Notes * Telephone Encounter - Sumi Marmolejo RN - 03/08/2025 3:37 PM EDT Faxed [facility], id summary and DAVID notes to [facility] documented in this encounter Plan of Treatment Upcoming Encounters Date Type Department Care Team (Late st Contact Info) Description 04/21/2025 1:50 PM EDT Appointment [facility] Radiology [address], 1st [place] [address] 04/21/2025 2:30 PM EDT Office Visit [facility] Orthopaedic Surgery & Sports Medicine [address], 1st [address] [place] [address] [place] [address] Quan Martinez MD [address] [place] [address] 04/22/2025 2:30 PM EDT Office Visit [facility] [address] [place] [address] Dayna Cuevas 05/11/2025 2:00 PM EDT Office Visit [facility] Rehabilitation Clinic at [facility] [address] [place] [address] Bina Mercado DO [address] [facility] [address] [place] [address] 06/06/2025 2:30 PM EST Office Visit [facility] [address] [place] [address] Syd Vargas MD [address] [facility] 2nd [place] [address] 07/01/2025 12:40 PM EST Office Visit [facility] [address], 1st [place] [address] Holland Mehta MD [address] [place] [address] documented as of this encounter Visit Diagnoses Not on filedocumented in this encounter Additional Health Concerns Assessment Noted Time A Body Mass Index follow-up plan has been documented for the patient 03/11/2025 10:42 AM EDT documented as of this encounter Care Teams Nuclear Powerplant Mechanic Helper Relationship Specialty Start Date End Date Pcp, [place] [address] PCP - General Family Medicine 11/26/24 03/27/25 Ebony Ross LPN VALUE-[place]ED [place] [address] TCM Nurse 02/08/25 03/26/25 documented as of this encounter
--- OUTSIDE RECORDS SUMMARY | 2025-04-11 14:25 | XMS_ITS | Encounter Summary ---
Author Organization [facility] Address [address] [place] [address] Care Team Providers Care Production Consultant Name Role Phone Pcp, No Primary Care Provider Ebony Meza TURNING MACHINE OPERATOR HELPER Unavailable Unavailable Reason for Visit * Reason Onset Date Comments HCN Clinical Concern/Question 03/08/2025 Encounter Details Date Type Department Care Team (Late st Contact Info) Description 03/08/2025 Telephone [facility] [address] [place] [address] Brennen Lopez MD [address] [place] [address] HCN Clinical Concern/Question Social History Tobacco Use Types Packs/Day Years [...] any time in the past 12 m [facility], were you homeless or living in a assisted (including now)? Patient declined 03/04/2025 Utilities Answer Date Recorded In the past 12 months has th e [employer], gas, oil, or water company threatened to shut off services in your home? Patient declined 03/04/2025 Sex and Gender Information Value Date Recorded Sex Assigned at Not on file Legal Sex Male 7:37 PM EDT Gender Identity Not on file Sexual Orientation Not on file documented as of this encounter Miscellaneous Notes * Telephone Encounter - Sumi Marmolejo RN - 03/11/2025 11:00 AM EDT Called pt's mother, Sumi, back regarding updates on referrals (close to home/[place] locations. RN explained to pt's mother that unfortunately I have been unable to find a HH that services their area, does not take their insurance or is not taking new pts. RN explains to Sumi that it is a frustrating process and agrees pt needs further care management. RN updated Sumi that the [facility] and [facility] are looking into sorting out the pt's transportation issues and asked Sumi if this is resolved and pt is able to transport to other appt locations--would the pt be okay with seeing outpt PT. Sumi is agreeable but with preference in [place] if possible. RN also updated her on unsuccessful Urology referrals d/t insurance. RN explained that if the pt is able to transport that it wouldbe a good option to see [facility]--Sumi is also agreeable. RN stated will update Sumi via [employer] when I have more information regarding possible options/appts. Sumi thanked RN for calling back for updates and continuing assistance in the pt's care. Denies further needs at this time. * Telephone Encounter - Montse Bueno - 03/11/2025 10:26 AM EDT Patient Phone Message Reason for Call:Mom is calling to speak to Sumi whom has called her regarding the referrals. Patient was seen in discharge clinic with Dr. Brennen Lopez. Please call mom Best contact number and optimal time of day to reach caller: [phone] Note: Please do not reply to this message. Follow-up communication and further actions as a result of this message need to be communicated with the patient directly, if the patient is not active onMyChart. If the patient is active on MyChart, they will receive notification of the communication/outcome via [employer]. * Telephone Encounter - Dayna Hayes - 03/08/2025 10:29 AM EDT Clinical Concern/Question Reason for Call[facility] rec[facility] from Dr Lopez in hosp discharge clinic. They do not go as far as [place]/pt's home. They checked with [facility] and [facility], they dont either. Suggested checking with [facility] or [facility]. thx Best contact number: Other: [phone] Optimal time of day to reach caller: ANYTIME Additional comments/information from caller: None Note: Please do not reply to this message. Follow-up communication and further actions as a result of this message need to be communicated with the patient directly, if the patient is not active onMyChart. If the patient is active on MyChart, they will receive notification of the communication/outcome via MyChart. documented in this encounter Plan of Treatment Upcoming Encounters Date Type Department Care Team (Late st Contact Info) Description 04/21/2025 1:[address] [facility] Radiology [address], 1st [place] [address] 04/21/2025 2:30 PM EDT Office Visit [facility] Orthopaedic Surgery & Sports Medicine [address], 1st [address] [place] [address] Quan Martinez MD [address] [place] [address] 04/22/2025 2:30 PM EDT Office Visit [facility] [address] [place] [address] Dayna Cuevas 05/11/2025 2:00 PM EDT Office Visit [facility] Rehabilitation Clinic at [facility] [address] [place] [address] Bina Mercado DO [address] [facility] [address] [place] [address] 06/06/2025 2:30 PM EST Office Visit [facility] [address] [place] [address] Syd Vargas MD [address] 2[address] [place] [address] 07/01/2025 12:40 PM EST Office Visit [place] [facility] [address], 1st [place] [address] Holland Mehta MD [address] [place] [address] documented as of this encounter Visit Diagnoses Not on filedocumented in this encounter Additional Health Concerns Assessment Noted Time A Body Mass Index follow-up plan has been documented for the patient 03/11/2025 10:42 AM EDT documented as of this encounter Care Teams Production Consultant Relationship Specialty Start Date End Date Pcp, Bhumi [address] [place] [address] PCP - General Family Medicine 11/26/24 03/27/25 Ebony Ross LPN VALUE-BASED [place] [address] TCM Nurse 02/08/25 03/26/25 documented as of this encounter
--- OUTSIDE RECORDS SUMMARY | 2025-04-11 14:26 | XMS_ITS | Encounter Summary ---
Author Organization [facility] Address [address] [place] [address] Care Team Providers Care Portfolio Strategist Name Role Phone Pcp, No Primary Care Provider Elissa e Ebony Ross HEAD OF ADVERTISING Unavailable Unavailable Reason for Visit * Reason Onset Date Comments HCN - Patient Message 02/28/2025 HCN Status Update Call #1 02/28/2025 Encounter Details Date Type Department Care Team (Late st Contact Info) Description 02/28/2025 Telephone [facility] [address] [place] [address] Syd Vargas MD [address] [address] HCN - Patient Message; HCN Status Update Call #1 Social History Tobacco Use Types Packs/Day Years [...] time in the past 12 m [facility], were you homeless or living in a long-term (including now)? Patient declined 03/04/2025 Utilities Answer Date Recorded In the past 12 months has th e [employer], gas, oil, or water company threatened to shut off services in your home? Patient declined 03/04/2025 Sex and Gender Information Value Date Recorded Sex Assigned at Not on file Legal Sex Male 7:37 PM EDT Gender Identity Not on file Sexual Orientation Not on file documented as of this encounter Miscellaneous Notes * Telephone Encounter - Kathleen Lacy RN - 03/03/2025 1:42 PM EDT Called and let her know we have faxed the form to [phone] * Telephone Encounter - Kathleen Lacy RN - 03/03/2025 11:56 AM EDT Called and confirmed fax number and gave her my email too, just in case the can email it to me * Telephone Encounter - Sachi Ansrailey Ya - 03/03/2025 10:33 AM EDT Status Update Call #1 1st call regarding the status of the initial request. Best contact number: [phone] (mobile) Optimal time of day to reach caller: ANYTIME Additional comments/information from caller: patient mother is still needing for this document to be sent to [facility] or the patient will not be transported to [facility] on Friday and next week.Please call to advise this has been taken care of [facility]. Note: Please do not reply to this message. Follow-up communication and further actions as a result of this message need to be communicated with the patient directly, if the patient is not active onMyChart. If the patient is active on MyChart, they will receive notification of the communication/outcome via [employer]. * Telephone Encounter - Laury Ansariberley Ya - 02/28/2025 2:02 PM EDT Clinical Concern/Question Reason for Call: Alicia, patient mother is calling stating that the patient insurance will not transport [place] over. She would like to know if we can help with transportation or recommend someone in [place] and they will take there. Please call to advise. Best contact number: [phone] (mobile), Sumi (Mother) Optimal time of day to reach caller: [...] [facility] Radiology [address], 1st [place] [address] 04/21/2025 2:30 PM EDT Office Visit [facility] Orthopaedic Surgery & Sports Medicine [address], 1[address] [place] [address] Quan Martinez MD [address] [place] [address] 04/22/2025 2:30 PM EDT Office Visit [facility] [address] [place] [address] Dayna Cuevas 05/11/2025 2:00 PM EDT Office Visit Physical Medicine & Rehabilitation Clinic at [facility] [address] [facility] [place] [address] Bina Mercado DO [address] [facility] [address] [place] [address] 06/06/2025 2:30 PM EST Office Visit [facility] [address] [place] [address] Syd Vargas MD [address] [phone] 07/01/2025 12:40 PM EST Office Visit [facility] [address], 1st [place] [address] Holland Mehta MD [address] [place] [address] documented as of this encounter Visit Diagnoses Not on filedocumented in this encounter Additional Health Concerns Assessment Noted Time A Body Mass Index follow-up plan has been documented for the patient 01/27/2025 2:52 PM EDT documented as of this encounter Care Teams Portfolio Strategist Relationship Specialty Start Date End Date Pcp, [place] [address] PCP - General Family Medicine 11/26/24 03/27/25 Ebony Ross LPN VALUE-BASED [place] [address] TCM Nurse 02/08/25 03/26/25 documented as of this encounter
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
--- OUTSIDE RECORDS SUMMARY | 2025-04-11 14:26 | XMS_ITS | Clinical Summary ---
Author Organization [facility] Address [address] [place] [id number] Care Team Providers Care Hand Tool Lapper Name Role Phone Provider, No Known Primary Care Provider Unavail able Allergies No known active allergies Medications amoxicillin-cla vulanate (AUGMENTIN) 875-125 MG per tablet Take 1 tablet by mouth 2 (Two) Times a Day. 14 tablet 1 Active erythromycin (ROMYCIN) 5 MG/GM ophthalmic ointment Administer to the right eye Every 4 (Four) Hours While Awake. 3.5 g 1 Active Immunizations Immunization Administration Dates Next Due Tdap 04/02/2021 Social History Tobacco Use Types Packs/Day Years Used Date Smoking Tobacco: Some Days Cigars Smokeless Tobacco: Current Snuff Alcohol Use Standard Drinks/Week Comments Yes 0 (1 standard drink = 0.6 oz pur e alcohol) very rarely Abuse Screen Answer Date Recorded Unsafe at Home or Work/School Not on file Feels Threatened by Someone? Not on file Does Anyone Keep You from Co ntacting Others or Doint Things Outside the Home? Not on file 04/25/2023 Physical Sign of Abuse Present Not on file 1 Housing Stability Answer Date Recorded Current Living Arrangements Not on file 04/13 Potentially Unsafe Housing Conditions Not on sean e 04/25/2023 Family and Community Support Answer Jakob e Recorded Help with Day-to-Day Activities Not on file 04/25/2023 Lonely or Isolated Not on file 04/25/2023 Employment Answer Date Recorded Do you want help finding or keeping work or a ryann b? Not on file 04/25/2023 Disabilities Answer Date Recorded Concentrating, Remembering, or Making Decisions Difficulty Not on file 04/25/2023 Doing Errands Independently Difficulty Not on fi le 04/25/2023 Education Answer Date Recorded Help with school or training? Not on file Preferred Language Not on file 04/25/2023 Sex and Gender Information Value Date Recorded Sex Assigned at Not on file Legal Sex Male 1:32 PM EDT Gender Identity Not on file Sexual Orientation Not on file Last Filed Vital Signs Vital Sign Reading Time Taken Comments Blood Pressure 137/86 04/07/2021 4:18 PM EDT Pulse 66 04/07/2021 4:18 PM EDT Temperature 36.4 C (97.5 F) 04/07/2021 4:18 PM EDT Respiratory Rate 14 04/07/2021 4:18 PM EDT Oxygen Saturation 100% 04/07/2021 4:18 PM EDT Inhaled Oxygen Concentration - - Weight 68 kg (150 lb) 04/07/2021 4:13 PM EDT Height 165.1 cm (5' 5 ) 04/07/2021 4:13 PM EDT Body Mass Index 24.96 04/07/2021 4:13 PM EDT Plan of Treatment Health Maintenance Due Date Last Done Comments ANNUAL PHYSICAL 2000 HEPATITIS C SCREENING 2000 INFLUENZA VACCINE 02/11/2025 TDAP/TD VACCINES (3 - Td or Tdap) 04/02/2031 04/02/2021, 08/24/2013 Pneumococcal Vaccine 0-49 Aged Out 2001, 04/10/2001, 02/03/2001 No longer eligible based on patient's age to complete this topic MENINGOCOCCAL B VACCINE Aged Out No l onger eligible based on patient's age to complete this topic [place] [address] [place] [address] Care Teams Hand Tool Lapper Relationship Specialty Start Date End Date Provider, [place] [address] PCP - General 04/02/21
--- OUTSIDE RECORDS SUMMARY | 2025-04-11 14:26 | XMS_ITS ---
Author Organization [facility] Address [address] [place] [address] Care Team Providers Care Floor Plan Adjuster Name Role Phone Tammy Tran MD Primary Care Provider [phone]- [phone] Transitional Care Management Status:Closed (Closed) Start date:02/08/2025 Enrollment date:02/08/2025 Enrollment reason:Identified using hospital discharge data End date:02/24/2025 Close reason:Not Eligible Overview This episode type is for outpatient care managers enrolling patients in the [facility] Transitional Care Management program. Continued Care and Services Coordination
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
--- OUTSIDE RECORDS SUMMARY | 2025-04-11 14:26 | XMS_ITS | Encounter Summary ---
Author Organization [facility] Address [address] [place] [address] Care Team Providers Care Installment Loan Collector Name Role Phone Pcp, No Primary Care Provider Unavailflavio e Ebony Ross LPN Unavailable Unavailable Encounter Details Date Type Department Care Team (Late st Contact Info) Description 03/04/2025 Telephone [facility] Discharge [facility] [address] [place] [address] Sumi Marmolejo, RN GS - Emergency [...] time in the past 12 m [facility], were you homeless or living in [...] Telephone Encounter - Sumi Marmolejo RN - 03/04/2025 3:08 PM EDT Faxed Home Health referral [facility] at [phone] per pt location preference. Successful fax response, result OK * Telephone Encounter - Sumi Marmolejo RN - 03/04/2025 3:06 PM EDT Fax[facility] at [phone] , per pt preference. Successful fax response, result OK documented in this encounter Plan of Treatment Upcoming Encounters Date Type Department Care Team (Late st Contact Info) Description 04/21/2025 1:50 PM EDT Appointment [facility] Radiology [address], 1st [place] [address] 04/21/2025 2:30 PM EDT Office Visit [facility] Orthopaedic Surgery & Sports Medicine [address] [place] [address] Quan Martinez MD [address] [place] [address] 04/22/2025 2:30 PM EDT Office Visit [facility] [address] [place] [address] Dayna Cuevas 05/11/2025 2:00 PM EDT Office Visit Physical Medicine & Rehabilitation Clinic at [facility] [address] [place] [address] Bina Mercado DO [address] [facility] [address] [place] [address] 06/06/2025 2:30 PM EST Office Visit [facility] [address] [place] [address] Syd Vargas MD [address] 2[address] [place] [address] 07/01/2025 12:40 PM EST Office Visit [facility] [address], [address] [place] [address] Holland Mehta MD [address] [place] [address] documented as of this encounter Visit Diagnoses Not on filedocumented in this encounter Additional Health Concerns Assessment Noted Time A Body Mass Index follow-up plan has been documented for the patient 03/04/2025 2:24 PM EDT documented as of this encounter Care Teams Installment Loan Collector Relationship Specialty Start Date End Date Pcp, Bhumi [address] [place] [address] PCP - General Family Medicine 11/26/24 03/27/25 Ebony Ross LPN VALUE-[place] [address] TCM Nurse 02/08/25 03/26/25 documented as of this encounter
--- OUTSIDE RECORDS SUMMARY | 2025-04-11 14:26 | XMS_ITS | Encounter Summary ---
Author Organization [facility] Address [address] [place] [address] Care Team Providers Care Agriscience Technology Instructor Name Role Phone Pcp, No Primary Care Provider Ebony Meza LPN Unavailable Unavailable Encounter Details Date Type Department Care Team (Late st Contact Info) Description 02/07/[address] [facility] [address] [place] [address] None, None [address] [place] [address] Social History Tobacco Use Types Packs/Day Years Used Date Smoking Tobacco: Never AUDIT-C Answer Date Recorded Q1: How often do you have a drink containing alcohol? Patient unable to answer 01/14/2025 Average Number of Drinks Not on file 025 Frequency of Binge Drinking Not on file 10/2024 Sex and Gender Information Value Date Recorded Sex Assigned at Not on file Legal Sex Male 7:37 PM EDT Gender Identity Not on file Sexual Orientation Not on file documented as of this encounter Miscellaneous Notes * Telephone Encounter - Sumi Marmolejo RN - 02/14/2025 11:51 AM EDT RN called pt's mother in regards to update her of appt time and location change. Pt's mother declines the upcoming appt for 02/15 as the pt is still admitted to [facility] and is not expecting to bedischarged from there until 02/23/25, per the pt's mother's report. RN asked if she would like for me to schedule a DAVID appt for after the pt's discharge. Pt's mother declines again d/t concerns for transportation and need of appt, pt's mother states will contact the Discharge Clinic if she wished for the pt to be rescheduled to be seen w/ [facility]. Pt's mother denies any additional needs from [facility] at this time. * Telephone Encounter - Sherley Teixeira CNA - 02/08/2025 9:44 AM EDT Informed Terrence of appt with Dr. Lopez at [facility] on 02[facility]. Advised her someone will call the pt if the appt needs to be changed for any reason. * Telephone Encounter - Sherley Teixeira CNA - 02/07/2025 1:31 PM EDT Called number left in message to discuss marino. At this time pt is scheduled for 02/14 at 120pm with joshua at [facility] location. Will attempt to call again as I was unable to LVM * Telephone Encounter - Kathleen Anderson - 02/07/2025 9:02 AM EDT Patient Phone Message Reason for Call: [facility] requesting a [facility] appointment in 7-10 days if possible (pt has no PCP). She said they do not have an exact discharge date as of now but it will be very soon as patient is ready to discharge. I let her know there are no openings as of now, and no future openings due to the clinic changes but that I would put in a phone note to have the clinic follow up. Ty! Best contact number and optimal time of day to reach caller: [facility] [phone] Note: Please do not reply to this [...] Info) Description 04/21/2025 1:50 PM EDT Appointment [facility] Radiology [address] 1st [place] [address] 04/21/2025 2:30 PM EDT Office Visit [facility] Orthopaedic Surgery & Sports Medicine [address], [address] [place] [address] Quan Martinez MD [address] [place] [address] 04/22/2025 2:30 PM EDT Office Visit [facility] [address] [place] [phone] Dayna Cuevas 05/11/2025 2:00 PM EDT Office Visit Physical Medicine & Rehabilitation Clinic at [facility] [address] [facility] [place] [address] Bina Mercado DO [address] [facility] [address] [place] [address] 06/06/2025 2:30 PM EST Office Visit [facility] [address] [place] [address] Syd Vargas MD [address] [phone] 07/01/2025 12:40 PM EST Office Visit [facility] [address] 1st [place] [address] Holland Mehta MD [address] [place] [address] documented as of this encounter Visit Diagnoses Not on filedocumented in this encounter Additional Health Concerns Assessment Noted Time A Body Mass Index follow-up plan has been documented for the patient 01/27/2025 2:52 PM EDT documented as of this encounter Care Teams Agriscience Technology Instructor Relationship Specialty Start Date End Date P[place], [place] [address] PCP - General Family Medicine 11/26/24 03/27/25 Ebony Ross LPN VALUE-BASED [place] [address] TCM Nurse 02/08/25 03/26/25 documented as of this encounter
--- OUTSIDE RECORDS SUMMARY | 2025-04-11 14:26 | XMS_ITS | Encounter Summary ---
Author Organization Healthcare Address [address] [place] [address] Care Team Providers Care Heel Trimmer Name Role Phone Pcp, No Primary Care Provider Unavailflavio e Ebony Ross LPN Unavailable Unavailable Encounter Details Date Type Department Care Team (Late st Contact Info) Description 02/23/2025 Telephone [place] [facility] [address] [place] [phone] Doreen Trevino Social History Tobacco Use Types [...] were you homeless or living in a chcf (including now)? Patient declined 02/24/2025 Utilities Answer Date Recorded In the past 12 months has th e [employer], gas, oil, or water company threatened to shut off services in your home? Patient declined 02/24/2025 Sex and Gender Information Value Date Recorded Sex Assigned at Not on file Legal Sex Male 7:37 PM EDT Gender Identity Not on file Sexual Orientation Not on file documented as of this encounter Miscellaneous Notes * Telephone Encounter - Doreen Trevino - 02/23/2025 10:14 AM EDT Called and spoke w/ edgar Craven of patient's 6W P/O scheduled for 03/18, 1140AM. Verbalized understanding. documented in this encounter Plan of Treatment Upcoming Encounters Date Type Department Care Team (Late st Contact Info) Description 04/21/2025 1:50 PM EDT Appointment [facility] Radiology [address] 1st [place] [address] 04/21/2025 2:30 PM EDT Office Visit [facility] Orthopaedic Surgery & Sports Medicine [address], [address] [place] [address] Quan Martinez MD [address] [place] [address] 04/22/2025 2:30 PM EDT Office Visit [facility] [address] [place] [address] Dayna Cuevas 05/11/2025 2:00 PM EDT Office Visit [facility] at [facility] [address] [place] [address] Bina Mercado DO [address] [facility] [address] [place] [address] 06/06/2025 2:30 PM EST Office Visit [facility] [address] [place] [address] Syd Vargas MD [address] 2nd [place] [address] 07/01/2025 12:40 PM EST Office Visit [place] [facility] [address] [place] [address] Holland Mehta MD [address] [place] [address] documented as of this encounter Visit Diagnoses Not on filedocumented in this encounter Additional Health Concerns Assessment Noted Time A Body Mass Index follow-up plan has been documented for the patient 01/27/2025 2:52 PM EDT documented as of this encounter Care Teams Heel Trimmer Relationship Specialty Start Date End Date Pcp, [place] [address] PCP - General Family Medicine 11/26/24 03/27/25 Ebony Ross LPN VALUE-[place] [address] TCM Nurse 02/08/25 03/26/25 documented as of this encounter
--- OUTSIDE RECORDS SUMMARY | 2025-04-11 14:26 | XMS_ITS | Encounter Summary ---
Author Organization [facility] Address [address] [place] [address] Care Team Providers Care Account Services Associate Name Role Phone Tammy Tran MD Primary Care Provider [phone]- [phone] Encounter Details Date Type Department Care Team (Latest Contact Info) Description 04/07/2025 Travel Social History Tobacco Use Types Packs/Day [...] in the past 12 m [facility], were you homeless or living in a longterm (including now)? Patient declined 03/04/2025 Utilities Answer [...] Info) Description 04/21/2025 1:50 PM EDT Appointment [facility] Radiology [address], [address]st [place] [address] 04/21/2025 2:30 PM EDT Office Visit [facility] Orthopaedic Surgery & Sports Medicine [address], [address] [place] [address] Quan Martinez MD [address] [place] [address] 04/22/2025 2:30 PM EDT Office Visit [facility] [address] [place] [address] Dayna Cuevas 05/11/2025 2:00 PM EDT Office Visit [facility] at [facility] [address] [place] [address] Bina Mercado DO [address] [place] [address] 06/06/2025 2:30 PM EST Office Visit [facility] [address] [place] [address] Syd Vargas MD [address] [facility] 2nd [place] [address] 07/01/2025 12:40 PM EST Office Visit [place] [facility] [address] [place] [address] Holland Mehta MD [address] [place] [address] documented as of this encounter [...] documented as of this encounter Care Teams Account Services Associate Relationship Specialty Start Date End Date Tammy Tran MD [address] [place] [address] PCP - General 03/28/25 documented as of this encounter
--- OUTSIDE RECORDS SUMMARY | 2025-04-11 14:26 | XMS_ITS | Encounter Summary ---
Author Organization Healthcare Address [address] [place] [address] Care Team Providers Care Supervisor Ovens Name Role Phone Pcp, No Primary Care Provider Unavailflavio e Ebony Ross LPN Unavailable Unavailable Encounter Details Date Type Department Care Team (Late st Contact Info) Description 02/08/2025 Telephone [place] [facility] [address], [address] [place] [phone] Doreen Trevino Social History Tobacco Use Types [...] time in the past 12 m [facility], were you homeless or living in a jail (including now)? Patient declined 02/24/2025 Utilities Answer Date Recorded In the past 12 months has th e [employer], gas, oil, or water [email or web address] threatened to shut off services in your home? Patient declined 02/24/2025 Sex and Gender Information Value Date Recorded Sex Assigned at Not on file Legal Sex Male 7:37 PM EDT Gender Identity Not on file Sexual Orientation Not on file documented as of this encounter Miscellaneous Notes * Telephone Encounter - Lisa Mendiola - 02/23/2025 8:30 AM EDT Patient Phone Message Reason for Call: [facility] calling to [facility] follow will d/c today 02/23 please call mom to [facility] Best contact number and optimal time of day to reach caller: [phone] Note: Please do not reply to this message. Follow-up communication and further actions as a result of this message need to be communicated with the patient directly, if the patient is not active onMyChart. If the patient is active on MyChart, they will receive notification of the communication/outcome via [employer]. * Telephone Encounter - Doreen Trevino - 02/08/2025 5:47 PM EDT Attempted to call patient to schedule 6w post-op, spoke w/ patient's mom, states patient is currently in [facility] at the moment and will be d/c on 02/23, states they will call back after patient has been d/c and will us know if follow-up is needed. Will also review this w/ Dr. Mehta. documented in this encounter Plan of Treatment Upcoming Encounters Date Type Department Care Team (Late st Contact Info) Description 04/21/2025 1:50 PM EDT Appointment [facility] Radiology [address], [address] [place] [address] 04/21/2025 2:30 PM EDT Office Visit [facility] Orthopaedic Surgery & Sports Medicine [address], [address] [place] [address] Quan Martinez MD [address] [place] [address] 04/22/2025 2:30 PM EDT Office Visit [facility] [address] [place] [address] Dayna Cuevas 05/11/2025 2:00 PM EDT Office Visit [facility] at [facility] [address] [place] [address] Bina Mercado DO [address] [place] [address] 06/06/2025 2:30 PM EST Office Visit [facility] [address] [place] [address] Syd Vargas MD [address] [place] [address] 07/01/2025 12:40 PM EST Office Visit [place] [facility] [address] [place] [address] Holland Mehta MD [address] [place] [address] documented as of this encounter Visit Diagnoses Not on filedocumented in this encounter Additional Health Concerns Assessment Noted Time A Body Mass Index follow-up plan has been documented for the patient 01/27/2025 2:52 PM EDT documented as of this encounter Care Teams Supervisor Ovens Relationship Specialty Start Date End Date Pcp, Bhumi [address] [place] [address] PCP - General Family Medicine 11/26/24 03/27/25 Ebony Ross LPN [employer] [place] [address] TCM Nurse 02/08/25 03/26/25 documented as of this encounter
--- OUTSIDE RECORDS SUMMARY | 2025-04-11 14:26 | XMS_ITS | Encounter Summary ---
Author Organization Healthcare Address [address] [place] [address] Care Team Providers Care Solution Sales Senior Executive Name Role Phone Pcp, No Primary Care Provider UnavailEbony Flower LPN Unavailable Unavailable Tammy Tran MD Primary Care Provider [phone]- [phone] Reason for Visit * Reason Onset Date Comments HCN - Patient Message 02/28/2025 Encounter Details Date Type Department Care Team (Late st Contact Info) Description 02/28/2025 Telephone [facility] Orthopaedic Surgery & Sports Medicine [address], [address] [place] [address] Quan Martinez MD [address] [place] [address] HCN - Patient Message Social History Tobacco Use Types Packs/Day Years Used Date Smoking Tobacco: Never PHQ-2 Answer Date Recorded Patient Health Questionnaire-2 [...] any time in the past 12 m [facility], were you homeless or living in a group home (including now)? Patient declined 03/04/2025 Utilities Answer Date Recorded In the past 12 months has e [employer], gas, oil, or water [employer] threatened to shut off services in your [...] Not difficult at all 03/28/2025 11:40 AM EDT Nadya Nagy * Question Answer Date of Assessment Author 1. Wish to be (Past 1 Month) No 025 11:40 AM EDT Nadya Ray 2. Non-Specific Active Suici yaniv Thoughts (Past 1 Month) No 03/28/2025 11:40 AM EDT Hui Ray P 6. Suicidal Behavior (Lifetime) No 11:40 AM Nadya Galeas documented as of this encounter Miscellaneous Notes * Telephone Encounter - Amarjit Barnes - 03/10/2025 2:02 PM EDT Patient being seen today in clinic * Telephone Encounter - Larisa Abrams - 02/28/2025 2:14 PM EDT Clinical Concern/Question Reason for Call: Dr Martinez patient mom Sumi is calling She states the patient does not have transportation. His insurance will not pay for it. She is wanting to see if someone could help with transportation. She is requesting a call back. Best contact number: [phone] (mobile) Optimal time of day to reach caller: ANYTIME Additional comments/information from caller: None Note: Please do not reply to this message. Follow-up communication and further actions as a result of this message need to be communicated with the patient directly, if the patient is not active onMyChart. If the patient is active on MyChart, they will receive notification of the communication/outcome via [employer]. documented in this encounter Plan of Treatment Upcoming Encounters Date Type Department Care Team (Late st Contact Info) Description 04/21/2025 1:50 PM EDT Appointment [facility] Radiology [address], [address]st [place] [address] 04/21/2025 2:30 PM EDT Office Visit [facility] Orthopaedic Surgery & Sports Medicine [address], [address] [place] [address] Quan Martinez MD [address] [place] [address] 04/22/2025 2:30 PM EDT Office Visit [facility] [address] [place] [address] Dayna Cuevas 05/11/2025 2:00 PM EDT Office Visit [facility] [address] [address] Bina Mercado DO [address] [facility] [address] [place] [address] 06/06/2025 2:30 PM EST Office Visit [facility] [address] [place] [address] Syd Vargas MD [address] [place] [address] 07/01/2025 12:40 PM EST Office Visit [facility] [address], [address] [place] [address] Holland Mehta MD [address] [place] [address] documented as of this encounter [...] documented as of this encounter Care Teams Solution Sales Senior Executive Relationship Specialty Start Date End Date Pcp, No [address] [place] [address] PCP - General Family Medicine 11/26/24 03/27/25 Tammy Tran MD [address] [place] [address] PCP - General 03/28/25 Ebony Ross LPN [employer] [place] [address] TCM Nurse 02/08/25 03/26/25 documented as of this encounter
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
--- OUTSIDE RECORDS SUMMARY | 2025-04-11 14:26 | XMS_ITS | Encounter Summary ---
Author Organization [facility] Address [address] [place] [address] Care Team Providers Care Bridge Construction Inspector Name Role Phone Tammy Tran MD Primary Care Provider +1- [phone] Encounter Details Date Type Department Care Team (Late st Contact Info) Description 04/05/2025 Orders Only [facility] [address] [place] [address] Tammy Tran MD [address] [place] [address] Injury of cervical spinal cord, sequela (CMS/HCC) (Primary Dx) Social History Tobacco Use Types [...] any time in the past 12 m [facility], were you homeless or living in a halfway (including now)? Patient declined 03/04/2025 Utilities Answer Date Recorded In the past 12 months has th e [employer], gas, oil, or water [employer] threatened to shut off services in your home? Patient declined 03/04/2025 Sex and Gender Information Value Date Recorded Sex Assigned at Not on file Legal Sex Male 7:37 PM EDT Gender Identity Not on file Sexual Orientation Not on file documented as of this encounter Miscellaneous Notes * Progress Notes - Tammy Tran MD - 04/05/2025 11:39 AM EDT Pt wishes to have controlled pain meds sent to [place]. Pain contract signed and will add to chart. documented in this encounter Plan of Treatment Upcoming Encounters Date Type Department Care Team (Late st Contact Info) Description 04/21/2025 1:50 PM EDT Appointment [facility] Radiology [address] [place] [address] 04/21/2025 2:30 PM EDT Office Visit [facility] Orthopaedic Surgery & Sports Medicine [address], [address] [place] [address] Quan Martinez MD [address] [place] [address] 04/22/2025 2:30 PM EDT Office Visit [facility] [address] [place] [address] Dayna Cuevas 05/11/2025 2:00 PM EDT Office Visit [facility] [address] [place] [address] Bina Mercado DO [address] [facility] [address] [place] [address] 06/06/2025 2:30 PM EST Office Visit [facility] [address] [place] [address] Syd Vargas MD [address] [place] [address] 07/01/2025 12:40 PM EST Office Visit [facility] [address], [address] [place] [address] Holland Mehta MD [address] [place] [address] documented as of this encounter [...] Injury of cervical spinal cord, sequela- Primary documented in this encounter Additional Health Concerns Assessment Noted Time PHQ-9 Depression Total Score: 0 03/28/20 11:40 AM EDT A fall risk assessment has been complete d for the patient 03/18/2025 12:00 PM EDT A Body Mass Index follow-up plan has been documented for the patient 03/29/2025 4:53 PM EDT documented as of this encounter Care Teams Bridge Construction Inspector Relationship Specialty Start Date End Date Tammy Tran MD [address] [place] [address] PCP - General 03/28/25 documented as of this encounter
--- OUTSIDE RECORDS SUMMARY | 2025-04-11 14:26 | XMS_ITS | Clinical Summary ---
Author Organization [facility] Address [address] 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 Active bisacodyl (Dulcolax) 10 MG suppository Insert 1 suppository into the rectum daily. 12 suppository Active Additional Information Patient taking differently:10 mg RectalAs needed, constipation, Reported on 03/28/2025 enoxaparin (Lovenox) 30 MG/0.3ML solution prefilled syringe Inject 0.3 mL under the skin 2 times a day. Active Additional Information Patient not taking.Reported on 03/28/2025 escitalopram (Lexapro) 10 MG tablet Take 1 tablet by mouth daily. Active hydrOXYzine pamoate (Vistaril) 25 MG capsule Take 1 capsule by mouth every 6 hours as needed for anxiety. 30 capsule Active Additional Information Patient not taking.Reported on 03/28/2025 melatonin tablet Take 3 tablets by mouth nightly. Active methocarbamol (Robaxin) 500 MG tablet Take 2 tablets by mouth every 6 hours. Active mirtazapine (Remeron) 15 MG tablet Take 1 tablet by mouth nightly. Active naloxone (Narcan) 4 mg/0.1 mL nasal spray 1. Give 1 spray in nostril for no/slow breathing or cannot wake after opioid use 2. Call 911 3. Repeat in other nostril if symptoms continue 1 each Active QUEtiapine (SEROquel) 50 MG tablet Take 1 tablet by mouth 2 times a day AND 3 tablets nightly. Active senna-docusate (Victorina-Colace) 8.6-50 MG tablet Take 1 tablet by mouth 2 times a day. Active traZODone (Desyrel) 50 MG tablet Take 1 tablet by mouth nightly. Active baclofen (Lioresal) 10 MG tablet Active famotidine (Pepcid) 20 MG tablet Active lactulose (Chronulac) 10 GM/15ML oral solution Active Lidocaine Pain Relief 4 % patch Active lubiprostone (Amitiza) 24 MCG capsule Active polyethylene glycol (Miralax) 17 GM/SCOOP powder Active solifenacin (VESIcare) 10 MG tablet Active traZODone (Desyrel) 100 MG tablet Active gabapentin (Neurontin) 600 MG tablet Take 1 tablet by mouth 3 times a day. 90 tablet 2 Active oxyCODONE (Roxicodone) 5 MG immediate release tablet Take 1 tablet by mouth every 6 hours as needed for moderate pain or severe pain. 60 tablet Active gabapentin (Neurontin) 300 MG capsule Take 1 capsule by mouth every 8 hours. 2024 Discontinued gabapentin (Neurontin) 600 MG tablet Take 1 tablet by mouth 3 times a day. 2024 Discontinued(R eorder) oxyCODONE (Roxicodone) 5 MG immediate release tablet Take 1 tablet by mouth every 8 hours as needed for moderate pain for up to 21 days. 63 tablet 2024 oxyCODONE (Roxicodone) 5 MG immediate release tablet Take 1 tablet by mouth as needed for moderate pain or severe pain. 025 2024 Discontinued(R eorder) Active Problems Problem Noted Date Diagnosed Date Hand injury, left, initial encounter 01/27/2025 Assessment & Plan (01/27/2025 2:42 PM EDT): Per PMR, requesting ortho hand consult for evaluation of tendon transfer of left hand E-coli UTI 01/24/2025 Assessment & Plan (01/27/2025 11:27 AM EDT): UA 7/13 with >100,000 E.Coli. On levaquin x5 days. F/U sensitivities. Assessment & Plan (01/26/2025 12:55 PM EDT): UA 7/13 with >100,000 E.Coli. On levaquin x5 days. F/U sensitivities. Assessment & Plan (01/25/2025 10:31 AM EDT): UA 7/13 with >100,000 E.Coli. On levaquin x5 days. F/U sensitivities. Assessment & Plan (01/24/2025 6:22 PM EDT): UA 7/13 with >100,000 E.Coli. On levaquin x5 days. F/U sensitivities. Critical polytrauma 01/18/2025 Feeding difficulty 01/14/2025 Assessment & Plan (01/27/2025 11:27 AM EDT): Cleared for diet by FURNITURE RENTAL CONSULTANT. DHT removed 7/. CTM PO intake. Assessment & Plan (01/26/2025 12:55 PM EDT): Cleared for diet by FURNITURE RENTAL CONSULTANT. DHT removed 7/. CTM PO intake. Assessment & Plan (01/25/2025 10:31 AM EDT): Cleared for diet by FURNITURE RENTAL CONSULTANT. DHT removed 7/. CTM PO intake. Assessment & Plan (01/24/2025 6:22 PM EDT): Cleared for diet by FURNITURE RENTAL CONSULTANT. DHT removed 01/22. CTM PO intake. Assessment & Plan (01/23/2025 4:32 PM EDT): Cleared for diet by FURNITURE RENTAL CONSULTANT. DHT removed 01/22. CTM PO intake. Assessment & Plan (01/22/2025 2:22 PM EDT): FURNITURE RENTAL CONSULTANT following Pending MBS Diet started 01/18, monitor intake DC DHT when intake is adequate 01/21: calorie count ordered Assessment & Plan (01/21/2025 3:53 PM EDT): FURNITURE RENTAL CONSULTANT following Pending MBS Diet started 01/18, monitor intake DC DHT when intake is adequate 01/21: calorie count ordered Assessment & Plan (01/20/2025 4:30 PM EDT): FURNITURE RENTAL CONSULTANT following Pending MBS Diet started 01/18, monitor intake DC DHT when intake is adequate, MBS pending Assessment & Plan (01/19/2025 12:43 PM EDT): FURNITURE RENTAL CONSULTANT following Pending MBS Diet started 01/18, monitor intake DC DHT when intake is adequate Assessment & Plan (01/18/2025 6:47 PM EDT): FURNITURE RENTAL CONSULTANT following Pending MBS Assessment & Plan (01/18/2025 8:00 AM EDT): FURNITURE RENTAL CONSULTANT following Pending MBS Assessment & Plan (01/16/2025 9:44 AM EDT): FURNITURE RENTAL CONSULTANT following Pending MBS Assessment & Plan (01/15/2025 10:03 AM EDT): FURNITURE RENTAL CONSULTANT following Pending MBS Assessment & Plan (01/14/2025 12:53 PM EDT): FURNITURE RENTAL CONSULTANT following, needs MBS TBI (traumatic brain injury) 01/08/2025 Assessment & Plan (01/27/2025 11:27 AM EDT): SD[facility], [facility] consult Propranolol stopped Assessment & Plan (01/26/2025 12:55 PM EDT): SDH, [facility] NS[facility] consult Propranolol stopped Assessment & Plan (01/25/2025 10:31 AM EDT): SDH, [facility] NS[facility] consult Propranolol stopped Assessment & Plan (01/24/2025 6:22 PM EDT): SDH, [facility] NS[facility] consult Propranolol stopped Assessment & Plan (01/23/2025 4:32 PM EDT): SDH, [facility] NSGY consult Propranolol stopped Assessment & Plan (01/22/2025 2:22 PM EDT): SDH, [facility] NSGY consult Propranolol stopped Assessment & Plan (01/21/2025 3:53 PM EDT): SDH, [facility] NSGY consult Propranolol stopped Assessment & Plan (01/20/2025 4:30 PM EDT): SDH, [facility] NSGY consult Propranolol stopped Assessment & Plan (01/19/2025 12:43 PM EDT): SDH, [facility] NSGY consult Propranolol stopped Assessment & Plan (01/18/2025 6:47 PM EDT): SDH, [facility] NSGY consult Propranolol stopped Assessment & Plan (01/18/2025 8:00 AM EDT): SDH, [facility] NSGY consult Propranolol stopped Assessment & Plan (01/16/2025 9:44 AM EDT): SDH, [facility] NSGY consult Propranolol stopped Assessment & Plan (01/15/2025 10:03 AM EDT): SDH, [facility] NSGY consult D/c Propranolol Assessment & Plan (01/14/2025 12:53 PM EDT): SDH, [facility] NS[facility] consult Assessment & Plan (01/22/2025 12:58 AM EDT): SDH, [facility] NS[facility] consult Assessment & Plan (01/12/2025 11:28 AM EDT): SDH, [facility] NS[facility] consult Assessment & Plan (01/11/2025 10:57 AM EDT): SDH, [facility] NS[facility] consult Assessment & Plan (01/18/2025 5:29 PM EDT): [facility] consult Assessment & Plan (01/10/2025 6:36 PM EDT): [facility] consult Assessment & Plan (01/10/2025 6:33 PM EDT): [facility] consult Conjunctival abrasion 01/08/2025 Overview (01/08/2025): D/t retained contacts, ointment added Assessment & Plan (01/27/2025 11:27 AM EDT): No vision complaints. Eye ok. Stopping eye drops 01/16. Had retained contact he believed Stable Assessment & Plan (01/26/2025 12:55 PM EDT): No vision complaints. Eye ok. Stopping eye drops 01/16. Had retained contact he believed Stable Assessment & Plan (01/25/2025 10:31 AM EDT): No vision complaints. Eye ok. Stopping eye drops 01/16. Had retained contact he believed Stable Assessment & Plan (01/24/2025 6:22 PM EDT): No vision complaints. Eye ok. Stopping eye drops 01/16. Had retained contact he believed Stable Assessment & Plan (01/23/2025 4:32 PM EDT): No vision complaints. Eye ok. Stopping eye drops 01/16. Had retained contact he believed Stable Assessment & Plan (01/22/2025 2:22 PM EDT): No vision complaints. Eye ok. Stopping eye drops 01/16. Had retained contact he believed Stable Assessment & Plan (01/21/2025 3:53 PM EDT): No vision complaints. Eye ok. Stopping eye drops 01/16. Had retained contact he believed Stable Assessment & Plan (01/20/2025 4:30 PM EDT): No vision complaints. Eye ok. Stopping eye drops 01/16. Had retained contact he believed Stable Assessment & Plan (01/19/2025 12:43 PM EDT): No vision complaints. Eye ok. Stopping eye drops 01/16. Had retained contact he believed Assessment & Plan (01/18/2025 6:47 PM EDT): No vision complaints. Eye ok. Stopping eye drops 01/16. Had retained contact he believed Assessment & Plan (01/18/2025 8:00 AM EDT): No vision complaints. Eye ok. Stopping eye drops 01/16. Had retained contact he believed Assessment & Plan (01/16/2025 9:44 AM EDT): No vision complaints. Eye ok. Stopping eye drops 01/16. Had retained contact he believed Spinal cord injury, cervical region 01/07/2025 Assessment & Plan (01/27/2025 11:27 AM EDT): CORA A S/p C2-T2 posterior fusion with C3-C6 laminectomies 01/06 PMR consulted, appreciate recs Discuss I/O transition Mirtazpine, discuss baclofen, continue gabapentin Assessment & Plan (01/26/2025 12:55 PM EDT): CORA A S/p C2-T2 posterior fusion with C3-C6 laminectomies 01/06 PMR consulted, appreciate recs Discuss I/O transition Mirtazpine, discuss baclofen, continue gabapentin Assessment & Plan (01/25/2025 10:31 AM EDT): CORA A S/p C2-T2 posterior fusion with C3-C6 laminectomies 01/06 PMR consulted, appreciate recs Discuss I/O transition Mirtazpine, discuss baclofen, continue gabapentin Assessment & Plan (01/24/2025 6:22 PM EDT): CORA A S/p C2-T2 posterior fusion with C3-C6 laminectomies 01/06 PMR consulted, appreciate recs Discuss I/O transition Mirtazpine, discuss baclofen, continue gabapentin Assessment & Plan (01/23/2025 4:32 PM EDT): CORA A S/p C2-T2 posterior fusion with C3-C6 laminectomies 01/06 PMR consulted, appreciate recs Discuss I/O transition Mirtazpine, discuss baclofen, continue gabapentin Assessment & Plan (01/22/2025 2:22 PM EDT): CORA A S/p C2-T2 posterior fusion with C3-C6 laminectomies 01/06 PMR consulted, appreciate recs Discuss I/O transition Mirtazpine, discuss baclofen, continue gabapentin Assessment & Plan (01/21/2025 3:53 PM EDT): CORA A S/p C2-T2 posterior fusion with C3-C6 laminectomies 01/06 PMR consulted, appreciate recs Discuss I/O transition Mirtazpine, discuss baclofen, continue gabapentin Assessment & Plan (01/20/2025 4:30 PM EDT): CORA A S/p C2-T2 posterior fusion with C3-C6 laminectomies 01/06 PMR consulted, appreciate recs Discuss I/O transition Mirtazpine, discuss baclofen, continue gabapentin Assessment & Plan (01/19/2025 12:43 PM EDT): CORA A S/p C2-T2 posterior fusion with C3-C6 laminectomies 01/06 PMR consulted, appreciate recs Discuss I/O transition Mirtazpine, discuss baclofen, continue gabapentin Assessment & Plan (01/18/2025 6:47 PM EDT): CORA A S/p C2-T2 posterior fusion with C3-C6 laminectomies 01/06 PMR consulted, appreciate recs Discuss I/O transition Mirtazpine, discuss baclofen, continue gabapentin Assessment & Plan (01/18/2025 8:00 AM EDT): CORA A S/p C2-T2 posterior fusion with C3-C6 laminectomies 01/06 PMR consulted, appreciate recs Discuss I/O transition Mirtazpine, discuss baclofen, continue gabapentin Assessment & Plan (01/16/2025 9:44 AM EDT): CORA A S/p C2-T2 posterior fusion with C3-C6 laminectomies 01/06 PMR consulted, appreciate recs Discuss I/O transition Mirtazpine, discuss baclofen, continue gabapentin Assessment & Plan (01/15/2025 10:03 AM EDT): CORA A S/p C2-T2 posterior fusion with C3-C6 laminectomies 01/06 PMR consulted, appreciate recs Assessment & Plan (01/14/2025 12:53 PM EDT): CORA A S/p C2-T2 posterior fusion with C3-C6 laminectomies 01/06 PMR consulted, appreciate recs Assessment & Plan (01/22/2025 12:58 AM EDT): CORA A S/p C2-T2 posterior fusion with C3-C6 laminectomies 01/06 PMR consulted, appreciate recs Assessment & Plan (01/12/2025 11:28 AM EDT): CORA A S/p C2-T2 posterior fusion with C3-C6 laminectomies 01/06 Will need PMR consult Assessment & Plan (01/11/2025 10:57 AM EDT): CORA A S/p C2-T2 posterior fusion with C3-C6 laminectomies 01/06 Will need PMR consult Assessment & Plan (01/18/2025 5:29 PM EDT): CORA A S/p C2-T2 posterior fusion with C3-C6 laminectomies 01/06 Will need PMR consult Assessment & Plan (01/10/2025 6:36 PM EDT): CORA A S/p C2-T2 posterior fusion with C3-C6 laminectomies 01/06 Will need PMR consult Assessment & Plan (01/10/2025 6:33 PM EDT): CORA A S/p C2-T2 posterior fusion with C3-C6 laminectomies 01/06 Will need PMR consult Assessment & Plan (01/17/2025 9:41 PM EDT): 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: C2-T2 posterior fusion with C3-C6 laminectomies Pleural effusion on right 12/31/2024 Assessment & Plan (01/27/2025 11:27 AM EDT): Chest tube placement 12/31 Pulled 01/04 Stable Assessment & Plan (01/26/2025 12:55 PM EDT): Chest tube placement 12/31 Pulled /24 Stable Assessment & Plan (01/25/2025 10:31 AM EDT): Chest tube placement / Pulled /24 Stable Assessment & Plan (01/24/2025 6:22 PM EDT): Chest tube placement / Pulled /24 Stable Assessment & Plan (01/23/2025 4:32 PM EDT): Chest tube placement / Pulled 6/24 Stable Assessment & Plan (01/22/2025 2:22 PM EDT): Chest tube placement / Pulled 6/24 Stable Assessment & Plan (01/21/2025 3:53 PM EDT): Chest tube placement 6/20 Pulled 6/24 Stable Assessment & Plan (01/20/2025 4:30 PM EDT): Chest tube placement 6/20 Pulled 6/24 Stable Assessment & Plan (01/19/2025 12:43 PM EDT): Chest tube placement 6/20 Pulled 6/24 Stable Assessment & Plan (01/18/2025 6:47 PM EDT): Chest tube placement 6/20 Pulled 6/24 Assessment & Plan (01/18/2025 8:00 AM EDT): Chest tube placement 6/20 Pulled 6/24 Assessment & Plan (01/16/2025 9:44 AM EDT): Chest tube placement 6/20 Pulled 6/24 Assessment & Plan (01/15/2025 10:03 AM EDT): Chest tube placement 6/20 Pulled 6/24 Assessment & Plan (01/14/2025 12:53 PM EDT): Chest tube placement 6/20 Pulled 6/24 Assessment & Plan (01/22/2025 12:58 AM EDT): Chest tube placement 6/20 Pulled 6/24 Assessment & Plan (01/12/2025 11:28 AM EDT): Chest tube placement 6/20 Pulled 6/24 Assessment & Plan (01/11/2025 10:57 AM EDT): Chest tube placement 6/20 Pulled 6/24 Assessment & Plan (01/18/2025 5:29 PM EDT): Chest tube placement 6/20 Pulled 6/24 Assessment & Plan (01/10/2025 6:36 PM EDT): Chest tube placement 6/20 Pulled 6/24 Assessment & Plan (01/10/2025 6:33 PM EDT): Chest tube placement 12/31 Pulled 01/04 Assessment & Plan (01/17/2025 9:41 PM EDT): Chest tube placement / Pulled 01/04 Assessment & Plan (01/16/2025 11:03 PM EDT): Chest tube placement 12/31 Pulled 01/04 Assessment & Plan (01/15/2025 8:00 PM EDT): Chest tube placement 12/31 Pulled 01/04 Assessment & Plan (01/14/2025 4:16 PM EDT): Chest tube placement 12/31 Pulled 01/04 Assessment & Plan (01/13/2025 11:33 PM EDT): Chest tube placement 12/31 Assessment & Plan (01/07/2025 9:10 PM EDT): Chest tube placement 12/31 Assessment & Plan (01/07/2025 9:08 PM EDT): Chest tube placement 12/31 Assessment & Plan (12/31/2024 9:56 PM EDT): Chest tube placement 12/31 Open femur fracture, right 12/29/2024 Assessment & Plan (01/27/2025 11:27 AM EDT): ORF consult, s/p I&D, ex-fix 12/28 and ORIF 6/19 WB per ortho Assessment & Plan (01/26/2025 12:55 PM EDT): ORF consult, s/p I&D, ex-fix 12/28 and ORIF 6/19 WB per ortho Assessment & Plan (01/25/2025 10:31 AM EDT): ORF consult, s/p I&D, ex-fix 6/17 and ORIF 6/19 WB per ortho Assessment & Plan (01/24/2025 6:22 PM EDT): ORF consult, s/p I&D, ex-fix 6/17 and ORIF 6/19 WB per ortho Assessment & Plan (01/23/2025 4:32 PM EDT): ORF consult, s/p I&D, ex-fix 6/17 and ORIF 6/19 WB per ortho Assessment & Plan (01/22/2025 2:22 PM EDT): ORF consult, s/p I&D, ex-fix 6/17 and ORIF 6/19 WB per ortho Assessment & Plan (01/21/2025 3:53 PM EDT): ORF consult, s/p I&D, ex-fix 6/17 and ORIF 6/19 WB per ortho Assessment & Plan (01/20/2025 4:30 PM EDT): ORF consult, s/p I&D, ex-fix 6/17 and ORIF 6/19 WB per ortho Assessment & Plan (01/19/2025 12:43 PM EDT): ORF consult, s/p I&D, ex-fix 6/17 and ORIF 6/19 WB per ortho Assessment & Plan (01/18/2025 6:47 PM EDT): ORF consult, s/p I&D, ex-fix 6/17 and ORIF 6/19 WB per ortho Assessment & Plan (01/18/2025 8:00 AM EDT): ORF consult, s/p I&D, ex-fix 6/17 and ORIF 6/19 WB per ortho Assessment & Plan (01/16/2025 9:44 AM EDT): ORF consult, s/p I&D, ex-fix 6/17 and ORIF 6/19 WB per ortho Assessment & Plan (01/15/2025 10:03 AM EDT): ORF consult, s/p I&D, ex-fix 6/17 and ORIF 6/19 WB per ortho Assessment & Plan (01/14/2025 12:53 PM EDT): ORF consult, s/p I&D, ex-fix 6/17 and ORIF 6/19 WB per ortho Assessment & Plan (01/22/2025 12:58 AM EDT): ORF consult, s/p I&D, ex-fix 6/17 and ORIF 6/19 WB per ortho Assessment & Plan (01/12/2025 11:28 AM EDT): ORF consult, s/p I&D, ex-fix 6/17 and ORIF 6/19 WB per ortho Assessment & Plan (01/11/2025 10:57 AM EDT): ORF consult, s/p I&D, ex-fix 6/17 and ORIF 6/19 WB per ortho Assessment & Plan (01/18/2025 5:29 PM EDT): ORF consult, s/p I&D, ex-fix 6/17 and ORIF 6/19 WB per ortho Assessment & Plan (01/10/2025 6:36 PM EDT): ORF consult, s/p I&D, ex-fix 6/17 and ORIF 6/19 WB per ortho Assessment & Plan (01/10/2025 6:33 PM EDT): ORF consult, s/p I&D, ex-fix 6/17 and ORIF 6/19 WB per ortho Assessment & Plan (01/17/2025 9:41 PM EDT): Ortho following S/p I&D, ex-fix 6/17 S/p ORIF -6/19 Assessment & Plan (01/16/2025 11:03 PM EDT): Ortho following S/p I&D, ex-fix 6/17 S/p ORIF -6/19 Assessment & Plan (01/15/2025 8:00 PM EDT): Ortho following S/p I&D, ex-fix 6/17 S/p ORIF -6/19 Assessment & Plan (01/14/2025 4:16 PM EDT): Ortho following S/p I&D, ex-fix 6/17 S/p ORIF -6/19 Assessment & Plan (01/13/2025 11:33 PM EDT): Ortho following S/p I&D, ex-fix 6/17 S/p ORIF -6/19 Assessment & Plan (01/07/2025 9:10 PM EDT): Ortho following S/p I&D, ex-fix 6/17 S/p ORIF -6/19 Assessment & Plan (01/07/2025 9:08 PM EDT): Ortho following S/p I&D, ex-fix 6/17 S/p ORIF -6/19 Assessment & Plan (12/31/2024 9:56 PM EDT): Ortho following S/p I&D, ex-fix 6/17 S/p ORIF -6/19 Assessment & Plan (12/30/2024 2:18 PM EDT): Ortho following S/p I&D, ex-fix 6/17 Assessment & Plan (12/29/2024 5:34 PM EDT): Ortho following S/p I&D, ex-fix 6/17 Open fracture of left tibia and fibula Assessment & Plan (01/27/2025 11:27 AM EDT): ORF consult, S/p I&D, ex-fix 6/17, repeat I&D and IMN 6/19 WB per ortho Assessment & Plan (01/26/2025 12:55 PM EDT): ORF consult, S/p I&D, ex-fix 6/17, repeat I&D and IMN 6/19 WB per ortho Assessment & Plan (01/25/2025 10:31 AM EDT): ORF consult, S/p I&D, ex-fix 6/17, repeat I&D and IMN 6/19 WB per ortho Assessment & Plan (01/24/2025 6:22 PM EDT): ORF consult, S/p I&D, ex-fix 6/17, repeat I&D and IMN 6/19 WB per ortho Assessment & Plan (01/23/2025 4:32 PM EDT): ORF consult, S/p I&D, ex-fix 6/17, repeat I&D and IMN 6/19 WB per ortho Assessment & Plan (01/22/2025 2:22 PM EDT): ORF consult, S/p I&D, ex-fix 6/17, repeat I&D and IMN 6/19 WB per ortho Assessment & Plan (01/21/2025 3:53 PM EDT): ORF consult, S/p I&D, ex-fix 6/17, repeat I&D and IMN 6/19 WB per ortho Assessment & Plan (01/20/2025 4:30 PM EDT): ORF consult, S/p I&D, ex-fix 6/17, repeat I&D and IMN 6/19 WB per ortho Assessment & Plan (01/19/2025 12:43 PM EDT): ORF consult, S/p I&D, ex-fix 6/17, repeat I&D and IMN 6/19 WB per ortho Assessment & Plan (01/18/2025 6:47 PM EDT): ORF consult, S/p I&D, ex-fix 6/17, repeat I&D and IMN 6/19 WB per ortho Assessment & Plan (01/18/2025 8:00 AM EDT): ORF consult, S/p I&D, ex-fix 6/17, repeat I&D and IMN 6/19 WB per ortho Assessment & Plan (01/16/2025 9:44 AM EDT): ORF consult, S/p I&D, ex-fix 6/17, repeat I&D and IMN 6/19 WB per ortho Assessment & Plan (01/15/2025 10:03 AM EDT): ORF consult, S/p I&D, ex-fix 6/17, repeat I&D and IMN 6/19 WB per ortho Assessment & Plan (01/14/2025 12:53 PM EDT): ORF consult, S/p I&D, ex-fix 6/17, repeat I&D and IMN 6/19 WB per ortho Assessment & Plan (01/22/2025 12:58 AM EDT): ORF consult, S/p I&D, ex-fix 6/17, repeat I&D and IMN 6/19 WB per ortho Assessment & Plan (01/12/2025 11:28 AM EDT): ORF consult, S/p I&D, ex-fix 6/17, repeat I&D and IMN 6/19 WB per ortho Assessment & Plan (01/11/2025 10:57 AM EDT): ORF consult, S/p I&D, ex-fix 6/17, repeat I&D and IMN 6/19 WB per ortho Assessment & Plan (01/18/2025 5:29 PM EDT): ORF consult, S/p I&D, ex-fix 6/17, repeat I&D and IMN 6/19 WB per ortho Assessment & Plan (01/10/2025 6:36 PM EDT): ORF consult, S/p I&D, ex-fix 6/17, repeat I&D and IMN 6/19 WB per ortho Assessment & Plan (01/10/2025 6:33 PM EDT): ORF consult, S/p I&D, ex-fix 6/17, repeat I&D and IMN 6/19 WB per ortho Assessment & Plan (01/17/2025 9:41 PM EDT): Ortho following S/p I&D, ex-fix 6/17 S/p Stage 1 masquelet Assessment & Plan (01/16/2025 11:03 PM EDT): Ortho following S/p I&D, ex-fix 6/17 S/p Stage 1 masquelet Assessment & Plan (01/15/2025 8:00 PM EDT): Ortho following S/p I&D, ex-fix 6/17 S/p Stage 1 masquelet Assessment & Plan (01/14/2025 4:16 PM EDT): Ortho following S/p I&D, ex-fix 6/17 S/p Stage 1 masquelet Assessment & Plan (01/13/2025 11:33 PM EDT): Ortho following S/p I&D, ex-fix 6/17 S/p Stage 1 masquelet Assessment & Plan (01/07/2025 9:10 PM EDT): Ortho following S/p I&D, ex-fix 6/17 S/p Stage 1 masquelet Assessment & Plan (01/07/2025 9:08 PM EDT): Ortho following S/p I&D, ex-fix 6/17 S/p Stage 1 masquelet Assessment & Plan (12/31/2024 9:56 PM EDT): Ortho following S/p I&D, ex-fix 6/17 S/p Stage 1 masquelet Assessment & Plan (12/30/2024 2:18 PM EDT): Ortho following S/p I&D, ex-fix 6/17 Assessment & Plan (12/29/2024 5:34 PM EDT): Ortho following S/p I&D, ex-fix 17 Multiple pelvic fractures 12/29/2024 Assessment & Plan (01/27/2025 11:27 AM EDT): ORF consult, s/p ORIF and CRPP 6/23 WB per ortho Assessment & Plan (01/26/2025 12:55 PM EDT): ORF consult, s/p ORIF and CRPP 6/23 WB per ortho Assessment & Plan (01/25/2025 10:31 AM EDT): ORF consult, s/p ORIF and CRPP 6/23 WB per ortho Assessment & Plan (01/24/2025 6:22 PM EDT): ORF consult, s/p ORIF and CRPP 6/23 WB per ortho Assessment & Plan (01/23/2025 4:32 PM EDT): ORF consult, s/p ORIF and CRPP 6/23 WB per ortho Assessment & Plan (01/22/2025 2:22 PM EDT): ORF consult, s/p ORIF and CRPP 6/23 WB per ortho Assessment & Plan (01/21/2025 3:53 PM EDT): ORF consult, s/p ORIF and CRPP 6/23 WB per ortho Assessment & Plan (01/20/2025 4:30 PM EDT): ORF consult, s/p ORIF and CRPP 6/23 WB per ortho Assessment & Plan (01/19/2025 12:43 PM EDT): ORF consult, s/p ORIF and CRPP 6/23 WB per ortho Assessment & Plan (01/18/2025 6:47 PM EDT): ORF consult, s/p ORIF and CRPP 6/23 WB per ortho Assessment & Plan (01/18/2025 8:00 AM EDT): ORF consult, s/p ORIF and CRPP 6/23 WB per ortho Assessment & Plan (01/16/2025 9:44 AM EDT): ORF consult, s/p ORIF and CRPP 6/23 WB per ortho Assessment & Plan (01/15/2025 10:03 AM EDT): ORF consult, s/p ORIF and CRPP 6/23 WB per ortho Assessment & Plan (01/14/2025 12:53 PM EDT): ORF consult, s/p ORIF and CRPP 6/23 WB per ortho Assessment & Plan (01/22/2025 12:58 AM EDT): ORF consult, s/p ORIF and CRPP 6/23 WB per ortho Assessment & Plan (01/12/2025 11:28 AM EDT): ORF consult, s/p ORIF and CRPP 6/23 WB per ortho Assessment & Plan (01/11/2025 10:57 AM EDT): ORF consult, s/p ORIF and CRPP 6/23 WB per ortho Assessment & Plan (01/18/2025 5:29 PM EDT): ORF consult, s/p ORIF and CRPP 6/23 WB per ortho Assessment & Plan (01/10/2025 6:36 PM EDT): ORF consult, s/p ORIF and CRPP 6/23 WB per ortho Assessment & Plan (01/10/2025 6:33 PM EDT): ORF consult, s/p ORIF and CRPP 6/23 WB per ortho Assessment & Plan (01/17/2025 9:41 PM EDT): Ortho following Pelvis sheet in place, monitoring skin - 6/23: OR for pelvic fixation Assessment & Plan (01/16/2025 11:03 PM EDT): Ortho following Pelvis sheet in place, monitoring skin - 6/23: OR for pelvic fixation Assessment & Plan (01/15/2025 8:00 PM EDT): Ortho following Pelvis sheet in place, monitoring skin - 6/23: OR for pelvic fixation Assessment & Plan (01/14/2025 4:16 PM EDT): Ortho following Pelvis sheet in place, monitoring skin - 6/23: OR for pelvic fixation Assessment &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 difficulty; E-coli UTI Discharge Disposition: Rehab Facility from Last 3 Months Immunizations Immunization Administration Dates Next Due DTaP 08/24/2013, 6,12/18/2001,04/10,02/03/2001,2000 HPV, Quadrivalent 04/24/2016,02/05/2016 Hep A, ped/adol, 2 dose 08/14/2018 Hep B, Adolescent or Pediatric 12/18/2001,2000,2000 HiB, unspecified 12/18/2001,02/03/2001, 1 Hib (PRP-T) 01/11/2025 IPV 09/30/2005, 2,02/03/2001,11/07 Influenza, injectable, quadr ivalent, preservative free 04/29/2018 Influenza, seasonal, injecta ble, preservative free 03/28/2025 MMR 09/30/2005,10/16/2001 Meningococcal B, Omv 01/11/2025 Meningococcal MCV4O 01/11/2025,08/14/2018 Meningococcal MCV4P 08/24/2013 Pneumococcal 20-deangelo Conj Vaccine 01/11/2025 Pneumococcal Conjugate PCV 7 10/16/2001,04/10/20,02/03/2001 Tdap 12/27/2024, 5(),04/02/2021,05/2014 Varicella 08/24/2013,10/16/2001 Social History Tobacco Use Types Packs/Day Years [...] any time in the past 12 m [facility], were you homeless or living in [...] Mass Index 23.57 03/28/2025 11:23 AM EDT Plan of Treatment Upcoming Encounters Date Type Department Care Team (Late st Contact Info) Description 04/21/2025 1:50 PM EDT Appointment [facility] [address], [address] [place] [phone] 04/21/2025 2:30 PM EDT Office Visit [facility] [address], [address] [place] [address] Quan Martinez MD [address] [place] [address] 04/22/2025 2:30 PM EDT Office Visit [facility] [address] [place] [phone] Dayna Cuevas 05/11/2025 2:00 PM EDT Office Visit [facility] [address] [place] [address] Bina Mercado DO [address] [place] [address] 06/06/2025 2:30 PM EST Office Visit [facility] [address] [place] [address] Syd Vargas MD [address] [facility] 2nd [place] [phone] 07/01/2025 12:40 PM EST Office Visit [facility] [address], [address] [place] [address] Holland Mehta MD [address] [place] [address] Health Maintenance Due Date Last Done Comments [facility]-HIV Screening 2000 [facility]-Hepatitis C Screening 2000 [facility]-/Child/Adol SDOH Screenings 2000 HPV Vaccines (3 - Male 3-dose series) 08/07/2016 04/24/2016, 02/05/2016 [facility]-Hepatitis A Vaccines (2 of 2 - Risk 2-dose series) 02/11/2019 08/14/2018 [facility]-[id number]-11 Vaccine (3 - season) 2025 10/25/2021, 02/11/2021 [facility]- SDOH Screenings 08/27/2025 [facility]-Adult SDOH Screenings 08/27/2025 02/24/2025 [facility]-Depression Screening 03/28/2026 03/28/2025, 03/14 [facility]-DTaP,Tdap,and Td Vaccines (10 - Td or Tdap) 12/27/2034 12/27/2024, 04/02/2021, 08/24/2013, Additional history exists [facility]-Zoster Vaccines (1 of 2) 2050 08/24/2013, 10/16/2001 [facility]-Hepatitis B Vaccines Completed 002, 02/03/2001, 2000 [facility]-IPV Vaccines Completed 09/30/2005, 11/2001, 02/03/2001, Additional history exists [facility]-Varicella Vaccines Completed 08/24/2013, 2001 [facility]-HIB Vaccines Completed 01/11/2025, 01/2002, 02/03/2001, Additional history exists [facility]-Pneumococcal Vaccine: Pediatrics (0 to 5 Years) and At-Risk Patients (6 to 49 Years) Completed 01/11/2025, 10/16/2001, 04/10/2001, Additional history exists [facility]-Influenza Vaccine Completed 03/28/2025, 018 [facility]-Rotavirus Vaccines Aged Out No lo nger eligible based on patient's age to complete this topic Goals Goal Patient Goal Type Associated Problems [...] x 3 visits. Occupational Therapy No Harrison Chandler, Dayna M Medical Devices Implanted Type Area In School Suspension Aide Device Identifier Shelf Expiration Date Model / Serial / Lot Clamp Cmbntn Lg Mri Safe None - Sna - [id number] Implanted:Qty: 2 on 12/28/2024 by Yevgeniy Hoffman MD at [facility] Clamp N/A: Leg Synthes [place]-[id number] 12/28/2025 390.005RP / NA / NA Clamp Adj Lg Mri Safe None - Sna - [id number] Implanted:Qty: 8 on 12/28/2024 by Yevgeniy Hoffman MD at [facility] Clamp N/A: Leg Synthes [place]-[id number] 12/28/2025 390.008RP / NA / NA Hari Carbon Fbr 11.0mm 400mm - Sna - [id number] Implanted:Qty: 2 on 12/28/2024 by Yevgeniy Hoffman MD at [facility] Hari N/A: Leg Synthes [place]-[id number] 12/28/2025 394.87RP / NA / NA Hari Carbon Fbr 11.0mm 350mm - Sna - [id number] Implanted:Qty: 1 on 12/28/2024 by Yevgeniy Hoffman MD at [facility] Hari N/A: Leg Synthes [place]-[id number] 12/28/2025 394.86 / NA / NA Hari Ti 4.0x120 Cony - Sn/A - [id number] Implanted:Qty: 2 on 01/06/2025 by Holland Mehta MD at [facility] Hari N/A: Spine Cervical Urge Spine [email or web address] LP-[id number] 01/06/2026 [id number] / N/A / Screw Schanz 5mm X 200mm - Sna - [id number] Implanted:Qty: 4 on 12/28/2024 by Yevgeniy Hoffman MD at [facility] Screw N/A: Leg Synthes [place]-[id number] 12/28/2025 294.56 / NA / NA Screw Schanz 5mm X 170mm - Sna - [id number] Implanted:Qty: 4 on 12/28/2024 by Yevgeniy Hoffman MD at [facility] Screw N/A: Leg Synthes [place]-[id number] 12/28/2025 294.55 / NA / NA Screw 7.5x85mm Jesus 32mm Ss Globus Med - [id number] Implanted:Qty: 1 on 01/03/2025 by Wil Peace MD at [facility] Screw Right: Pelvis Globus [employer] [place] [employer]-[id number] 01/03/2026 2178.7587 / / Screw 7.5x85mm Jesus Full Thread Ss Globus Med - [id number] Implanted:Qty: 1 on 01/03/2025 by Wil Peace MD at [facility] Screw Right: Pelvis [employer] [place] [employer] Inc-[id number] 01/03/2026 2178.7585 / / Screw 7.8d714mj Jesus Full Thread Ss Globus Med - [id number] Implanted:Qty: 1 on 01/03/2025 by Wil Peace MD at [facility] Screw Right: Pelvis [employer]us [employer] [place] [employer] Inc-[id number] 01/03/2026 2178.7655 / / Screw 3.5mm Cortex Pelvic Selftap 55mm - [id number] Implanted:Qty: 1 on 01/03/2025 by Wil Peace MD at [facility] Screw Right: Pelvis Synthes USA-[id number] 01/03/2026 204.655 / / Screw 3.5mm Cortex Pelvic Selftap 60mm - [id number] Implanted:Qty: 1 on 01/03/2025 by Wil Peace MD at [facility] Screw Right: Pelvis [employer]ynthes [place]-[id number] 01/03/2026 204.660 / / Set Screw - Sn/A - [id number] Implanted:Qty: 14 on 01/06/2025 by Holland Mehta MD at [facility] Screw N/A: Spine Cervical DePuy Spine Sales LP-364398 01/06/2026 [id number] / N/A / Screw 4.0 Ply 3.5x14 - Sn/A - [id number] Implanted:Qty: 3 on 01/06/2025 by Holland Mehta MD at [facility] Screw N/A: Spine Cervical DePuy Spine Sales LP-[id number] 01/06/2026 [id number] / N/A / Screw 4.0 Ply 3.5x16 - Sn/A - [id number] Implanted:Qty: 5 on 01/06/2025 by Holland Mehta MD at [facility] Screw N/A: Spine Cervical DePuy Spine Sales LP-[id number] 01/06/2026 [id number] / N/A / Screw 4.0 Ply 3.5x22 - Sn/A - [id number] Implanted:Qty: 1 on 01/06/2025 by Holland Mehta MD at [facility] Screw N/A: Spine Cervical DePuy Spine Sales LP-[id number] 01/06/2026 [id number] / N/A / Screw 4.0 Ply 3.5x24 - Sn/A - [id number] Implanted:Qty: 1 on 01/06/2025 by Holland Mehta MD at [facility] Screw N/A: Spine Cervical DePuy Spine Sales LP-[id number] 01/06/2026 [id number] / N/A / Screw 4.0 Ply Cfx 4.5x32 - Sn/A - [id number] Implanted:Qty: 2 on 01/06/2025 by Holland Mehta MD at [facility] Screw N/A: Spine Cervical DePuy Spine Sales LP-538378 01/06/2026 [id number] / N/A / Screw 4.0 Ply Cfx 4.5x30 - Sn/A - [id number] Implanted:Qty: 1 on 01/06/2025 by Holland Mehta MD at [facility] Screw N/A: Spine Cervical DePuy Spine Sales LP-934241 01/06/2026 [id number] / N/A / Screw 4.0 Ply Cfx 4.5x36 - Sn/A - [id number] Implanted:Qty: 1 on 01/06/2025 by Holland Mehta MD at [facility] Screw N/A: Spine Cervical DePuy Spine Sales LP-916559 01/06/2026 [id number] / N/A / Wash Ss Captivate 6.5/7.5mm Standard Globus Me - [id number] Implanted:Qty: 3 on 01/03/2025 by Wil Peace MD at [facility] Washer Right: Pelvis [employer] [place] [employer] Inc-[id number] 01/03/2026 2178.0175 / / Guidewire Threaded 2.8.Ekh404 Trocar Tip Globus - [id number] Implanted:Qty: 2 on 01/03/2025 by Wil Peace MD at [facility] Wire Right: Pelvis [employer] [place] [employer] Inc-[id number] 01/03/2026 6178.0183 / / Guidewire Trocar 2.5pxy043 Threaded Tip Globus M - [id number] Implanted:Qty: 2 on 01/03/2025 by Wil Peace MD at [facility] Wire Right: Pelvis [employer] [place] [employer] Inc-[id number] 01/03/2026 6178.0115 / / Cement Bone Simplex - [id number] Implanted:Qty: 1 on 12/28/2024 by Yevgeniy Hoffman MD at [facility] N/A: Leg [id number] 10/11/2025 6191-1-010 / / [id number] Screw Locking T2 D5x37.5 - [id number] Implanted:Qty: 1 on 12/30/2024 by Claudio Rodriguez MD at [facility] Left: Tibia [employer] [facility] ([facility])-139 168 09/10/2034 2360-5037S / / [id number] Cement Bone Simplex - [id number] Implanted:Qty: 1 on 12/30/2024 by Claudio Rodriguez MD at [facility] Left: Tibia [facility] [facility] [place]-[id number] 11/10/2025 6191-1-010 / / [id number] Description:Mixed with 1.2 t obramycin and 1 gram of vanco, 5 ml methylene blue Nail Femoral Retro T2 Alpha 10mm X 380mm - [id number] Implanted:Qty: 1 on 12/30/2024 by Dwight Anglin MD at [facility] Right: Femur [employer] ([facility]139 168 02/10/2034 2339-1038S / / [id number] Screw Locking T2 D5xl55 - [id number] Implanted:Qty: 1 on 12/30/2024 by Dwight Anglin MD at [facility] Right: Femur [employer] [facility] ([facility]139 168 07/13/2034 2360-5055S / / [id number] Screw Locking T2 D5x40 - [id number] Implanted:Qty: 1 on 12/30/2024 by Dwight Anglin MD at [facility] Right: Femur [employer] [facility] ([facility]139 168 09/10/2034 2360-5040S / / [id number] Screw Locking T2 D5x35 - [id number] Implanted:Qty: 2 on 12/30/2024 by Dwight Anglin MD at [facility] Right: Femur [employer] ([facility])-139 168 10/11/2034 2360-5035S / / [id number] Nail Tibial [id number] - [id number] Implanted:Qty: 1 on 12/30/2024 by Claudio Rodriguez MD at [facility] Left: Tibia [employer] ([facility]139 168 08/13/2034 2341-1034S / / [id number] Screw Locking T2 D5x40 - [id number] Implanted:Qty: 1 on 12/30/2024 by Claudio Rodriguez MD at [facility] Left: Tibia [employer] [facility] ([facility]139 168 09/10/2034 2360-5040S / / [id number] Screw Locking T2 D5xl55 - [id number] Implanted:Qty: 1 on 12/30/2024 by Claudio Rodriguez MD at [facility] Left: Tibia [employer] [facility] ([facility]139 168 09/10/2034 2360-5055S / / [id number] Screw Locking T2 D5xl42.5 - [id number] Implanted:Qty: 1 on 12/30/2024 by Claudio Rodriguez MD at [facility] Left: Tibia [employer] [facility] ([facility]139 168 08/13/2034 2360-5042S / / [id number] Screw 3.5mm Cortex Selftap 42mm - [id number] Implanted:Qty: 1 on 01/03/2025 by Wil Peace MD at [facility] Right: Pelvis Synthes USA-[id number] 01/03/2026 204.842 / / Plate Recon 3.5mm Curved 6 Hole - [id number] Implanted:Qty: 1 on 01/03/2025 by Wil Peace MD at [facility] Right: Pelvis Mir US Inc-327708 01/03/2026 [id number] / / Matrix Fibergraft Bg Lg 12.5cc - [id number] Implanted:Qty: 1 on 01/06/2025 by Holland Mehta MD at [facility] N/A: Spine Cervical DePTeamSupport Spine Sales LP-414904 07/29/2027 [id number] / / [id number] Chip Bone 10cc - [id number] - [id number] Implanted:Qty: 1 on 01/06/2025 by Holland Mehta MD at [facility]-523804 03/31/2029 PCAN10 / [id number] / [id number] Explanted Type Area In School Suspension Aide Device Identifier Shelf Expiration Date Model / Serial / Lot Screw 3.5mm Cortex Pelvic Selftap 50mm - [id number] Explanted:Qty: 2 on 01/03/2025 by Wil Peace MD at [facility] Screw Right: Pelvis Synthes USA-[id number] 01/03/2026 204.650 / / Procedures Procedure Name Priority Date/Time Associated Diagnosis Comments XR CERVICAL SPINE 2 OR 3 VIEWS Routine 03/18/2025 11:46 AM EDT S/P cervical spinal fusion XR CLAVICLE LEFT Routine 03/10/2025 12:4 5 PM EDT Clavicle pain XR SCAPULA LEFT Routine 03/10/2025 12:45 PM EDT Pain in scapula PAIN MANAGEMENT, QUANTITATIVE URINE DRUG TESTING Routine 01/30/2025 6:00 AM EDT Encounter for general adult medical examination without abnormal findings PAIN MANAGEMENT, QUANTITATIVE URINE DRUG TESTING Routine 01/30/2025 6:00 AM EDT Encounter for general adult medical examination without abnormal findings FL MODIFIED BARIUM SWALLOW Routine 01/27/2025 8:16 AM EDT OXYGEN THERAPY Routine 01/26/2025 8:00 AM EDT OXYGEN THERAPY Routine 01/25/2025 8:00 PM EDT OXYGEN THERAPY Routine 01/25/2025 8:00 AM EDT PHOSPHORUS, PLASMA Routine 01/25/2025 5: 00 AM EDT MAGNESIUM, PLASMA Routine 01/25/2025 5:0 0 AM EDT BASIC METABOLIC PANEL, PLASMA Routine 01/25/2025 5:00 AM EDT CBC W/O DIFFERENTIAL Routine 01/25/2025 5:00 AM EDT OXYGEN THERAPY Routine 01/24/2025 8:00 PM EDT OXYGEN THERAPY Routine 01/24/2025 8:00 AM EDT PHOSPHORUS, PLASMA STAT 01/24/2025 5: 13 AM EDT MAGNESIUM, PLASMA Routine 01/24/2025 5:1 3 AM EDT BASIC METABOLIC PANEL, PLASMA Routine 01/24/2025 5:13 AM EDT CBC W/O DIFFERENTIAL STAT 01/24/2025 5:13 AM EDT URINE CULTURE Routine 01/23/2025 9:15 PM EDT OXYGEN THERAPY Routine 01/23/2025 8:00 PM EDT BLOOD CULTURE (AEROBIC/ANAEROBIC SET) Routine 01/23/2025 6:11 PM EDT URINALYSIS MICROSCOPIC FOR UA REFLEX Routine 01/23/2025 5:43 PM EDT URINALYSIS WITH REFLEX MICROSCOPIC Routine 01/23/2025 5:43 PM EDT XR CHEST 1 VIEW Routine 01/23/2025 4:44 PM EDT CBC W/O DIFFERENTIAL Routine 01/23/2025 2:07 PM EDT OXYGEN THERAPY Routine 01/23/2025 8:00 AM EDT OXYGEN THERAPY Routine 01/22/2025 8:00 PM EDT OXYGEN THERAPY Routine 01/22/2025 8:00 AM EDT BASIC METABOLIC PANEL, PLASMA Routine 01/22/2025 4:19 AM EDT CBC W/O DIFFERENTIAL Routine 01/22/2025 4:19 AM EDT OXYGEN THERAPY Routine 01/21/2025 8:00 PM EDT FL MODIFIED BARIUM SWALLOW Routine 01/21/2025 11:19 AM EDT PEP THERAPY Routine 01/21/2025 8:19 AM EDT PEP THERAPY Routine 01/21/2025 8:19 AM EDT PEP THERAPY Routine 01/21/2025 8:19 AM EDT OXYGEN THERAPY Routine 01/21/2025 8:00 AM EDT OXYGEN THERAPY Routine 01/20/2025 8:00 PM EDT XR CHEST 1 VIEW Routine 01/20/2025 4:50 PM EDT OXYGEN THERAPY Routine 01/20/2025 8:00 AM EDT BASIC METABOLIC PANEL, PLASMA Routine 01/20/2025 5:48 AM EDT CBC W/O DIFFERENTIAL Routine 01/20/2025 5:48 AM EDT OXYGEN THERAPY Routine 01/19/2025 8:00 PM EDT OXYGEN THERAPY Routine 01/19/2025 8:00 AM EDT OXYGEN THERAPY Routine 01/18/2025 8:00 PM EDT OXYGEN THERAPY Routine 01/18/2025 8:00 AM EDT BASIC METABOLIC PANEL, PLASMA Routine 01/18/2025 6:55 AM EDT CBC W/O DIFFERENTIAL Routine 01/18/2025 6:55 AM EDT WOUND OSTOMY EVAL AND TREAT Routine 01/18/2025 3:11 AM EDT OXYGEN THERAPY Routine 01/17/2025 8:00 PM EDT FL MODIFIED BARIUM SWALLOW Routine 01/17/2025 3:38 PM EDT WOUND OSTOMY EVAL AND TREAT Routine 01/17/2025 9:27 AM EDT CO CRITICAL CARE, E/M 30-74 MINUTES Routine 01/17/2025 9:14 AM EDT Critical polytrauma OXYGEN THERAPY Routine 01/17/2025 8:00 AM EDT OXYGEN THERAPY Routine 01/16/2025 8:00 PM EDT XR HAND RIGHT 3+ VIEWS Routine 01/16/2025 9:18 AM EDT OXYGEN THERAPY Routine 01/16/2025 8:00 AM EDT PHOSPHORUS, PLASMA Routine 01/16/2025 4: 11 AM EDT MAGNESIUM, PLASMA Routine 01/16/2025 4:1 1 AM EDT BASIC METABOLIC PANEL, PLASMA Routine 01/16/2025 4:11 AM EDT CBC W/O DIFFERENTIAL Routine 01/16/2025 4:11 AM EDT OXYGEN THERAPY Routine 01/15/2025 8:00 PM EDT OXYGEN THERAPY Routine 01/15/2025 2:35 PM EDT OXYGEN THERAPY Routine 01/15/2025 2:35 PM EDT VENTILATOR - ADULT Routine 01/15/2025 8: 00 AM EDT END TIDAL CO2 MONITORING Routine 01/15/2025 8:00 AM EDT VENTILATOR - ADULT Routine 01/15/2025 12 :17 AM EDT VENTILATOR - ADULT Routine 01/15/2025 12 :17 AM EDT END TIDAL CO2 MONITORING Routine 01/14/2025 8:00 PM EDT XR CHEST 1 VIEW Routine 01/14/2025 3:32 PM EDT OXYGEN THERAPY Routine 01/14/2025 8:00 AM EDT END TIDAL CO2 MONITORING Routine 01/14/2025 8:00 AM EDT SBT - SPONTANEOUS BREATHING TRIAL Routine 01/14/2025 6:00 AM EDT OXYGEN THERAPY Routine 01/13/2025 8:00 PM EDT VENTILATOR - ADULT Routine 01/13/2025 8: 00 PM EDT END TIDAL CO2 MONITORING Routine 01/13/2025 8:00 PM EDT CO CRITICAL CARE, E/M 30-74 MINUTES Routine 01/13/2025 11:41 AM EDT Critical polytrauma OXYGEN THERAPY Routine 01/13/2025 8:00 AM EDT VENTILATOR - ADULT Routine 01/13/2025 8: 00 AM EDT END TIDAL CO2 MONITORING Routine 01/13/2025 8:00 AM EDT OXYGEN THERAPY Routine 01/13/2025 7:57 AM EDT OXYGEN THERAPY Routine 01/13/2025 7:57 AM EDT OXYGEN THERAPY Routine 01/13/2025 7:57 AM EDT CBC W/O DIFFERENTIAL Routine 01/13/2025 12:50 AM EDT BASIC METABOLIC PANEL, PLASMA Routine 01/13/2025 12:50 AM EDT VENTILATOR - ADULT Routine 01/12/2025 8: 00 PM EDT END TIDAL CO2 MONITORING Routine 01/12/2025 8:00 PM EDT VENTILATOR - ADULT Routine 01/12/2025 3: 03 PM EDT VENTILATOR - ADULT Routine 01/12/2025 3: 03 PM EDT END TIDAL CO2 MONITORING Routine 01/12/2025 8:00 AM EDT XR CHEST 1 VIEW Routine 01/12/2025 6:06 AM EDT SBT - SPONTANEOUS BREATHING TRIAL Routine 01/12/2025 6:00 AM EDT QUANTITATIVE BAL/PAL/BRONCH WASH CULTURE AND GRAM STAIN Routine 01/12/2025 5:03 AM EDT URINALYSIS MICROSCOPIC FOR UA REFLEX Routine 01/12/2025 4:58 AM EDT URINALYSIS WITH REFLEX MICROSCOPIC Routine 01/12/2025 4:58 AM EDT BLOOD CULTURE (AEROBIC/ANAEROBIC SET) Routine 01/12/2025 4:40 AM EDT PHOSPHORUS, PLASMA Routine 01/12/2025 2: 17 AM EDT MAGNESIUM, PLASMA Routine 01/12/2025 2:1 7 AM EDT IONIZED CALCIUM, WHOLE BLOOD Routine 01/12/2025 2:17 AM EDT CBC W/O DIFFERENTIAL Routine 01/12/2025 2:17 AM EDT BASIC METABOLIC PANEL, PLASMA Routine 01/12/2025 2:17 AM EDT VENTILATOR - ADULT Routine 01/11/2025 8: 12 PM EDT END TIDAL CO2 MONITORING Routine 01/11/2025 8:00 PM EDT END TIDAL CO2 MONITORING Routine 01/11/2025 8:00 AM EDT SODIUM, PLASMA Timed 01/11/2025 6:19 AM EDT SBT - SPONTANEOUS BREATHING TRIAL Routine 01/11/2025 6:00 AM EDT PHOSPHORUS, PLASMA Routine 01/11/2025 12 :32 AM EDT MAGNESIUM, PLASMA Routine 01/11/2025 12: 32 AM EDT BASIC METABOLIC PANEL, PLASMA Routine 01/11/2025 12:32 AM EDT CBC W/O DIFFERENTIAL Routine 01/11/2025 12:32 AM EDT SODIUM, PLASMA Timed 01/11/2025 12:32 AM EDT XR CHEST 1 VIEW STAT 01/10/2025 11:45 PM EDT VENTILATOR - ADULT Routine 01/10/2025 10 :17 PM EDT VENTILATOR - ADULT Routine 01/10/2025 10 :17 PM EDT END TIDAL CO2 MONITORING Routine 01/10/2025 8:00 PM EDT SODIUM, PLASMA Timed 01/10/2025 6:13 PM EDT ECG ADULT Routine 01/10/2025 3:00 PM EDT CO CRITICAL CARE, E/M 30-74 MINUTES Routine 01/10/2025 2:25 PM EDT Critical polytrauma SODIUM, PLASMA Timed 01/10/2025 12:14 PM EDT END TIDAL CO2 MONITORING Routine 01/10/2025 8:00 AM EDT SBT - SPONTANEOUS BREATHING TRIAL Routine 01/10/2025 6:00 AM EDT SODIUM, PLASMA Timed 01/10/2025 5:08 AM EDT PHOSPHORUS, PLASMA Routine 01/10/2025 12 :02 AM EDT MAGNESIUM, PLASMA Routine 01/10/2025 12: 02 AM EDT IONIZED CALCIUM, WHOLE BLOOD Routine 01/10/2025 12:02 AM EDT CBC W/O DIFFERENTIAL Routine 01/10/2025 12:02 AM EDT BASIC METABOLIC PANEL, PLASMA Routine 01/10/2025 12:02 AM EDT SODIUM, PLASMA Timed 01/10/2025 12:02 AM EDT END TIDAL CO2 MONITORING Routine 01/09/2025 8:00 PM EDT VENTILATOR - ADULT Routine 01/09/2025 8: 00 PM EDT SODIUM, PLASMA Timed 01/09/2025 6:02 PM EDT CO CRITICAL CARE, E/M 30-74 MINUTES Routine 01/09/2025 5:29 PM EDT Critical polytrauma CO TRACHEOSTOMY, PLANNED Routine 01/09/2025 5:25 PM EDT Respiratory failure after trauma SODIUM, PLASMA Timed 01/09/2025 11:46 AM EDT XR ABDOMEN 1 VIEW STAT 01/09/2025 8:5 2 AM EDT END TIDAL CO2 MONITORING Routine 01/09/2025 8:00 AM EDT VENTILATOR - ADULT Routine 01/09/2025 8: 00 AM EDT SBT - SPONTANEOUS BREATHING TRIAL Routine 01/09/2025 6:00 AM EDT SODIUM, PLASMA Timed 01/09/2025 5:40 AM EDT XR CHEST 1 VIEW Routine 01/09/2025 3:12 AM EDT PHOSPHORUS, PLASMA Routine 01/09/2025 12 :58 AM EDT MAGNESIUM, PLASMA Routine 01/09/2025 12: 58 AM EDT IONIZED CALCIUM, WHOLE BLOOD Routine 01/09/2025 12:58 AM EDT CBC W/O DIFFERENTIAL Routine 01/09/2025 12:58 AM EDT BASIC METABOLIC PANEL, PLASMA Routine 01/09/2025 12:58 AM EDT SODIUM, PLASMA Timed 01/09/2025 12:58 AM EDT from Last 3 Months Results * XR Cervical Spine 2 or [...] MD on 03/18/2025 2:17 PM Akua Shaw OTHER SPORTS COACH OR INSTRUCTOR IMG XR PROCEDURES Final Re sult * XR Scapula Left (03/10/2025 12:45 PM [...] XR PROCEDURES Final Resu lt * XR Clavicle Left (03/10/2025 12:45 PM [...] IMG XR PROCEDURES Final Resu lt * (ABNORMAL) Pain Management, Quantitative Urine Drug Testing (01/30/2025 6:00 AM EDT) [facility] Alprazolam <20 <20 ng/mL 02/01 3:21 PM EDT [facility] [place] Midazolam <20 <20 ng/mL 2024 3:21 PM EDT [facility] [place] Triazolam <20 <20 ng/mL 2024 3:21 PM EDT [facility] Alprazolam <10 <10 ng/mL 02/01/2025 3:21 PM EDT [facility] Aminoclonazepam <20 <20 ng/mL 5 3:21 PM EDT [facility] Amphetamine <50 <50 ng/mL 02/01/2025 3:21 PM EDT [facility] Benzoylecgonine <50 <50 ng/mL 5 3:21 PM EDT [facility] Buprenorphine <10 <10 ng/mL 02/01/2025 3:21 PM EDT [facility] Buprenorphine Glucuronide <50 <50 ng/mL 02/01/2025 3:21 PM EDT [facility] Butalbital <50 <50 ng/mL 02/01/2025 3:21 PM EDT [facility] 9 Carboxy THC <10 <10 ng/mL 02/01/2025 3:21 PM EDT [facility] 9 Carboxy THC Glucuronide 316(H) <25 ng/mL 02/01/2025 3:21 PM EDT [facility] Clonazepam <10 <10 ng/mL 02/01/2025 3:21 PM EDT [facility] Codeine <50 <50 ng/mL 02/01/2025 3:21 PM EDT [facility] Codeine Glucuronide <50 <50 ng/mL 02/01 3:21 PM EDT [facility] Cyclobenzaprine <50 <50 ng/mL 3:21 PM EDT [facility] Desmethyl Tramadol <50 <50 ng/mL 2024 3:21 PM EDT [facility] Diazepam <10 <10 ng/mL 02/01/2025 3:21 PM EDT [facility] EDDP - Methadone Metabolite <50 <50 ng/mL 02/01/2025 3:21 PM EDT [facility] Fentanyl <1 <1 ng/mL 02/01/2025 3:21 PM EDT [facility] Hydrocodone <50 <50 ng/mL 02/01/2025 3:21 PM EDT [facility] Hydromorphone <50 <50 ng/mL 02/01/2025 3:21 PM EDT [facility] Hydromorphone Glucuronide <50 <50 ng/mL 02/01/2025 3:21 PM EDT [facility] Lorazepam <20 <20 ng/mL 02/01/2025 3:21 PM EDT [facility] Lorazepam Glucuronide <50 <50 ng/mL 02/01/2025 3:21 PM EDT [facility] MDA <50 <50 ng/mL 02/01/2025 3:21 PM EDT [facility] MDMA <50 <50 ng/mL 02/01/2025 3:21 PM EDT [facility] Meperidine <50 <50 ng/mL 02/01/2025 3:21 PM EDT [facility] Methadone <50 <50 ng/mL 02/01/2025 3:21 PM EDT [facility] Methamphetamine <50 <50 ng/mL 3:21 PM EDT [facility] Methylphenidate <50 <50 ng/mL 3:21 PM EDT [facility] 6 Monoacetyl morphine <10 <10 ng/mL 02/01/2025 3:21 PM EDT [facility] Morphine <50 <50 ng/mL 02/01/2025 3:21 PM EDT [facility] Morphine Glucuronide <50 <50 ng/mL 01/12 3:21 PM EDT [facility] Naloxone <50 <50 ng/mL 02/01/2025 3:21 PM EDT [facility] Naloxone Glucuronide <50 <50 ng/mL 01/12 3:21 PM EDT [facility] Norbuprenorphine <10 <10 ng/mL 02/02/20 3:21 PM EDT [facility] Norbuprenorphine Glucuronide <50 <50 ng/mL 02/01/2025 3:21 PM EDT [facility] Nordiazepam <20 <20 ng/mL 02/01/2025 3:21 PM EDT [facility] Norfentanyl <2 <2 ng/mL 02/01/2025 3:21 PM EDT [facility] Normeperidine <50 <50 ng/mL 02/01/2025 3:21 PM EDT [facility] PCP Quant, Ur <50 <50 ng/mL 02/01/2025 3:21 PM EDT [facility] Phenobarbital <50 <50 ng/mL 02/01/2025 3:21 PM EDT [facility] Oxazepam <20 <20 ng/mL 02/01/2025 3:21 PM EDT [facility] Oxazepam Glucuronide <50 <50 ng/mL 01/12 3:21 PM EDT [facility] Oxycodone 820(H) <50 ng/mL 02/01/2025 3:21 PM EDT [facility] Oxymorphone <50 <50 ng/mL 02/01/2025 3:21 PM EDT [facility] Oxymorphone Glucuronide >1,000(H) <50 ng/mL 02/01/2025 3:21 PM EDT [facility] Secobarbital <50 <50 ng/mL 02/01/2025 3:21 PM EDT [facility] Tramadol <50 <50 ng/mL 02/01/2025 3:21 PM EDT [facility] Temazepam <20 <20 ng/mL 02/01/2025 3:21 PM EDT [facility] Temazepam Glucuronide <50 <50 ng/mL 02/01/2025 3:21 PM EDT [facility] Urine Urine specimen obtained by clean catch procedure / Unknown 01/30/2025 6:00 AM EDT 01/30/2025 9:01 AM EDT Narrative [facility] - 02/01/2025 3:21 PM EDT This report is intended for use in clinical monitoring or management of patients. It is NOT intended for use in employment-related drug testing. For pain management, the absence of expected drug(s) and/or drug metabolite(s) may indicate non-compliance, inappropriate timing of specimen collection relative to drug administration, poor drug absorption, or limitations of testing. Interpretive questions should be directed to the laboratory. Test performed by LC-MS/MS at the [facility]. This test was developed and its performance characteristics determined by [facility]. It has not been cleared or approved by the FDA. The laboratory is regulated under CLIA as qualified to perform high-complexity testing. This test is used for clinical purposes. us Gilson Newman DO LAB URINE ORDERABLES Final Resu lt [facility] [address] [place] [address] * [place] Modified Barium Swallow (01/27/2025 8:16 AM EDT) Only the most recent of3 resultswithin the time period is included. Anatomical Region Laterality Modality Esophagus, stomach and duodenum Digital Radiography Impressions 01/27/2025 2:24 PM EDT Trace penetration with the thin consistency contrast material via cup and straw. No penetration or aspiration with any other consistency contrast material as tested. Please see separate note by Speech therapy team for dietary recommendations. CRITICAL RESULT: No. COMMUNICATION: Per this written report. By electronically signing this report, I, the attending physician, attest that I have personally reviewed the images/data for the above examination(s) and agree with the final edited report. Drafted by Remy Arita MD on 01/27/2025 9:12 AM Final report signed by Nicola Do MD on 01/27/2025 2:24 PM Narrative 01/27/2025 2:24 PM EDT CLINICAL INDICATION: dysphagia TECHNIQUE: Modified barium swallow was performed utilizing video fluoroscopy in conjunction with the Speech Pathology team. The patient ingested barium media of varying consistencies. Fluoroscopy Time: 1.6 minutes. COMPARISON: Modified barium swallow 01/21/2025, 01/17/2025. FINDINGS: Swallowing: There is trace penetration with the thin consistency contrast material administered via cup and straw, which is cleared spontaneously. There is no penetration or aspiration with the pudding or cracker consistencies. Other: Postsurgical changes to the spine consistent with prior fusion and laminectomy. Tracheostomy. Procedure Note Nicola Do MD - 01/27/2025 CLINICAL INDICATION: dysphagia TECHNIQUE: Modified barium swallow was performed utilizing video fluoroscopy inconjunction with the Speech Pathology team. The patient ingested bariummedia of varying consistencies. Fluoroscopy Time: 1.6 minutes. COMPARISON: Modified barium swallow 01/21/2025, 01/17/2025. FINDINGS: Swallowing: There is trace penetration with the thin consistency contrastmaterial administered via cup and straw, which is cleared spontaneously.There is no penetration or aspiration with the pudding or crackerconsistencies. Other: Postsurgical changes to the spine consistent with prior fusion andlaminectomy. Tracheostomy. IMPRESSION: Trace penetration with the thin consistency contrast material via cup andstraw. No penetration or aspiration with any other consistency contrastmaterial as tested. Please see separate note by Speech therapy team for dietaryrecommendations. CRITICAL RESULT: No. COMMUNICATION: Per this written report. By electronically signing this report, I, the attending physician, jaden I have personally reviewed the images/data for the aboveexamination(s) and agree with the final edited report. Drafted by Remy Artia MD on 01/27/2025 9:12 AM Final report signed by Nicola Do MD on 01/27/2025 2:24 PM us Claudia Cloud Ervin OTHER SPORTS COACH OR INSTRUCTOR IMG FLUOROSCOPY PROCEDURES Fin al Result * (ABNORMAL) CBC W/O Differential (01/25/2025 5:00 AM EDT) Only the most recent of12 resultswithin the time period is included. WBC Count 9.54 3.70 - 10.30 10*3/uL LAB HEMATOLOGY METHOD 01/25/2025 5:16 AM EDT [facility] RBC Count 3.69(L) 4.60 - 6.10 10*6/uL LAB HEMATOLOGY METHOD 01/25/2025 5:16 AM EDT [facility] HGB 9.8(L) 13.7 - 17.5 g/dL LAB HEMATOLOGY METHOD 01/25/2025 5:16 AM EDT [facility] HCT 31.9(L) 40.0 - 51.0 % LAB HEMATOLOGY METHOD 01/25/2025 5:16 AM EDT [facility] Platelet Count 642(H) 155 - 369 10*3/uL LAB HEMATOLOGY METHOD 01/25/2025 5:16 AM EDT [facility] MCV 86 79 - 98 fL LAB HEMATOLOGY METHOD 01/25/2025 5:16 AM EDT [facility] MCH 26.6 26.0 - 32.0 pg LAB HEMATOLOGY METHOD 01/25/2025 5:16 AM EDT [facility] MCHC 30.7 30.7 - 35.5 g/dL LAB HEMATOLOGY METHOD 01/25/2025 5:16 AM EDT [facility] RDW 17.1(H) 11.5 - 14.5 % LAB HEMATOLOGY METHOD 01/25/2025 5:16 AM EDT [facility] MPV 8.8 8.8 - 12.5 fL LAB HEMATOLOGY METHOD 01/25/2025 5:16 AM EDT [facility] nRBC 0.0 <=0.0 per 100 WBCs LAB HEMATOLOGY METHOD 01/25/2025 5:16 AM EDT [facility] Blood Venous blood specimen / Unknown Venipuncture / Unknown 01/25/2025 5:00 AM EDT 01/25/2025 5:07 AM EDT us Colt Arzate MD LAB BLOOD ORDERABLES Final Resu lt [facility] [address] [place] [address] * Phosphorus (01/25/2025 5:00 AM EDT) Only the most recent of7 resultswithin the time period is included. Phosphorus, Plasma 4.2 2.5 - 4.5 mg/dL 01/25/2025 5:48 AM EDT [facility] Blood Venous blood specimen / Unknown Venipuncture / Unknown 01/25/2025 5:00 AM EDT 01/25/2025 5:07 AM EDT us Colt Arzate MD LAB BLOOD ORDERABLES Final Resu lt Performing Organization Address City/[facility]/ZIP Co de Phone Number [facility] [address] [place] [address] * Magnesium (01/25/2025 5:00 AM EDT) Only the most recent of7 resultswithin the time period is included. Magnesium, Plasma 1.9 1.9 - 2.4 mg/dL 01/25/2025 5:48 AM EDT [facility] Blood Venous blood specimen / Unknown Venipuncture / Unknown 01/25/2025 5:00 AM EDT 01/25/2025 5:07 AM EDT us Colt Arzate MD LAB BLOOD ORDERABLES Final Resu lt Performing Organization Address City/[facility]/ZIP Co de Phone Number [facility] [address] [place] [address] * (ABNORMAL) Basic metabolic panel (01/25/2025 5:00 AM EDT) Only the most recent of11 resultswithin the time period is included. Glucose, Plasma 102(H) 74 - 99 mg/dL 01/25/2025 5:48 AM EDT [facility] BUN, Plasma 15 7 - 21 mg/dL 01/25/2025 5:48 AM EDT [facility] Creatinine, Plasma 0.41(L) 0.70 - 1.20 mg/dL 01/25/2025 5:48 AM EDT [facility] BUN/Creatinine Ratio 37 01/25/2025 5:48 AM EDT [facility] Sodium, Plasma 140 136 - 145 mmol/L 01/25/2025 5:48 AM EDT [facility] Potassium, Plasma 4.0 3.6 - 4.9 mmol/L 01/25/2025 5:48 AM EDT [facility] Chloride, Plasma 102 97 - 107 mmol/L 01/25/2025 5:48 AM EDT [facility] CO2, Plasma 25 22 - 29 mmol/L 01/25/2025 5:48 AM EDT [facility] Anion Gap 13 6 - 16 mmol/L 01/25/2025 5:48 AM EDT [facility] Total Calcium, Plasma 9.5 8.9 - 10.2 mg/dL 01/25/2025 5:48 AM EDT [facility] eGFRcr 155.1 mL/min/1.7 3m*2 01/25/2025 5:48 AM EDT [facility] Comment:Reported eGFRcr in m L/min/1.73m2 is based the CKD-EPI 2020 equation that does not use a race coefficient. Blood Venous blood specimen / Unknown Venipuncture / Unknown 01/25/2025 5:00 AM EDT 01/25/2025 5:07 AM EDT us Colt Arzate MD LAB BLOOD ORDERABLES Final Resu lt [facility] [address] [place] [address] * (ABNORMAL) Urine culture (01/23/2025 9:15 PM EDT) [facility] Signature Culture >=100,000 CFU/mL Escherichia coli(A) ARSENIO 01/25/2025 2:35 PM EDT [facility] Comment: This isolate has been identified using the FDA Approved [employer] CA System Edited result: Previously reported as Gram Negative Hari on 01/24/2025 at 1603 EDT. Urine Urine specimen obtained by clean catch procedure / Unknown Non-blood Collection / Unknown 01/23/2025 9:15 PM EDT 01/23/2025 9:28 PM EDT Narrative Organism Antibiotic Method Susceptibility Escherichia coli Amoxicillin/Clavulanate ARSENIO 8/4 ug/ml: Susceptible Escherichia coli Ampicillin ARSENIO >16 ug/ml: Resistant Escherichia coli Ampicillin/Sulbactam ARSENIO 16/8 ug/ml: Intermediate Escherichia coli Aztreonam ARSENIO <=2 ug/ml: Susceptible Escherichia coli Cefazolin ARSENIO <=1 ug/ml: Susceptible Comment:Breakpoints when cefazolin is used for therapy of uncomplicated UTIs due to E. coli, K. pneumoniae, and P. mirabilis. Breakpoints are based on a dosage regimen of 1 g administered every 12 hours. Cefazolin should be used as a surrogate to predict susceptibility for all oral cephalosporins (including cephalexin and cefdinir) to E. coli, Klebsiella spp., and P. mirabilis isolated from the urine. Escherichia coli Cefepime ARSENIO <=0.5 ug/ml: Susceptible Escherichia coli Ceftriaxone ARSENIO <=1 ug/ml: Susceptible Escherichia coli Ciprofloxacin ARSENIO <=0.25 ug/ml: Susceptible Escherichia coli Ertapenem ARSENIO <=0.25 ug/ml: Susceptible Escherichia coli Gentamicin ARSENIO <=2 ug/ml: Susceptible Escherichia coli Levofloxacin ARSENIO <=0.25 ug/ml: Susceptible Escherichia coli Meropenem ARSENIO <=0.5 ug/ml: Susceptible Escherichia coli Nitrofurantoin ARSENIO <=16 ug/ml: Susceptible Escherichia coli Piperacillin/Tazobactam ARSENIO <=2/4 ug/ml: Susceptible Escherichia coli Tetracycline ARSENIO <=2 ug/ml: Susceptible Escherichia coli Tobramycin ARSENIO <=2 ug/ml: Susceptible Escherichia coli Trimethoprim/Sulfamethoxazole ARSENIO <=0.5/9.5 ug/ml: Susceptible Nisreen Cardoso MD LAB MICROBIOLOGY - GENERAL ORDERABLES Final Result Performing Organization Address [facility] de Phone Number [facility] [address] [place] [address] * Blood Culture (Aerobic/Anaerobet Set) (01/23/2025 6:11 PM EDT) Only the most recent of2 resultswithin the time period is included. Culture No growth at day 5 ARSENIO 01/28/2025 7:01 PM EDT [facility] Blood Structure of antecubital vein / Unknown Venipuncture / Unknown 01/23/2025 6:11 PM EDT 01/23/2025 6:47 PM EDT Colt Arzate MD LAB MICROBIOLOGY - GENERAL ORDE RABLES Final Result Performing Organization Address [facility] de Phone Number [facility] [address] [place] [address] * Urinalysis Microscopic Examination (01/23/2025 5:43 PM EDT) Only the most recent of2 resultswithin the time period is included. Urine Urine specimen obtained by clean catch procedure / Unknown Non-blood Collection / Unknown 01/23/2025 5:43 PM EDT 01/23/2025 5:55 PM EDT Colt Arzate MD LAB URINE ORDERABLES Final Resu lt Performing Organization Address [facility] de Phone Number [facility] [address] [place] [address] * (ABNORMAL) Urinalysis with reflex microscopic (Culture NOT Included) (01/23/2025 5:43 PM EDT) Only the most recent of2 resultswithin the time period is included. Color, Urine Yellow LAB URINALYSIS - AUTOMATED METHOD 01/23/2025 6:30 PM EDT [facility] Clarity, Urine Cloudy LAB URINALYSIS - AUTOMATED METHOD 01/23/2025 6:30 PM EDT [facility] Spec Antoine, Urine 1.014 1.005 - 1.030 LAB URINALYSIS - AUTOMATED METHOD 01/23/2025 6:30 PM EDT [facility] pH, Urine 6.0 5.0 - 8.0 LAB URINALYSIS - AUTOMATED METHOD 01/23/2025 6:30 PM EDT [facility] Protein, Urine Trace(A) Negative mg/dL LAB URINALYSIS - AUTOMATED METHOD 01/23/2025 6:30 PM EDT [facility] Glucose, Urine Negative Negative mg/dL LAB URINALYSIS - AUTOMATED METHOD 01/23/2025 6:30 PM EDT [facility] Ketones, Urine Negative Negative mg/dL LAB URINALYSIS - AUTOMATED METHOD 01/23/2025 6:30 PM EDT [facility] Blood, Urine Large(A) Negative LAB URINALYSIS - AUTOMATED METHOD 01/23/2025 6:30 PM EDT [facility] Bilirubin, Urine Negative Negative LAB URINALYSIS - AUTOMATED METHOD 01/23/2025 6:30 PM EDT [facility] Urobilinogen, Urine 0.2 0.2 to 1.0 mg/dL LAB URINALYSIS - AUTOMATED METHOD 01/23/2025 6:30 PM EDT [facility] Leukocytes, Urine Large(A) Negative LAB URINALYSIS - AUTOMATED METHOD 01/23/2025 6:30 PM EDT [facility] Nitrite, Urine Negative Negative LAB URINALYSIS - AUTOMATED METHOD 01/23/2025 6:30 PM EDT [facility] RBC, Urine Unable to estimate due to obscuring WBC's (UNEWBC) 0 to 3 /HPF LAB URINALYSIS - AUTOMATED METHOD 01/23/2025 6:30 PM EDT [facility] WBC, Urine >50(A) 0 to 5 /HPF LAB URINALYSIS - AUTOMATED METHOD 01/23/2025 6:30 PM EDT [facility] Squamous Epithelial Cells Unable to estimate due to obscuring WBC's (UNEWBC) 0 to 5 /HPF LAB URINALYSIS - AUTOMATED METHOD 01/23/2025 6:30 PM EDT [facility] Hyaline Casts Unable to estimate due to obscuring WBC's (UNEWBC) 0 to 5 /LPF LAB URINALYSIS - AUTOMATED METHOD 01/23/2025 6:30 PM EDT [facility] Bacteria, Urine Present Negative LAB URINALYSIS - AUTOMATED METHOD 01/23/2025 6:30 PM EDT [facility] Urine Urine specimen obtained by clean catch procedure / Unknown Non-blood Collection / Unknown 01/23/2025 5:43 PM EDT 01/23/2025 5:55 PM EDT Narrative [facility] - 01/23/2025 6:30 PM EDT Performed by manual method us Colt Arzate MD LAB URINE ORDERABLES Final Resu lt [facility] [address] [place] [address] * XR Chest 1 View (01/23/2025 4:44 PM EDT) Only the most recent of6 resultswithin the time period is included. Anatomical Region Laterality Modality Chest Digital Radiogra phy Impressions 01/23/2025 6:15 PM EDT No acute findings. CRITICAL RESULT: No. COMMUNICATION: Per this written report. Drafted by Gertrude Lee MD on 01/23/2025 6:14 PM Final report signed by Gertrude Lee MD on 01/23/2025 6:15 PM Narrative 01/23/2025 6:15 PM EDT CLINICAL INDICATION: Leukocytosis 28 TECHNIQUE: XR CHEST 1 VIEW COMPARISON: January 20, 2025 FINDINGS: Interval removal of enteric feeding tube. Tracheostomy projects in appropriate position. Lungs are clear without consolidation. No pneumothorax. Stable cardiac silhouette. Left mid clavicle fracture deformity. Procedure Note Gertrude Lee MD - 01/23/2025 CLINICAL INDICATION: Leukocytosis 28 TECHNIQUE: XR CHEST 1 VIEW COMPARISON: January 20, 2025 FINDINGS: Interval removal of enteric feeding tube. Tracheostomy projects inappropriate position. Lungs are clear without consolidation. Nopneumothorax. Stable cardiac silhouette. Left mid clavicle fracturedeformity. IMPRESSION: No acute findings. CRITICAL RESULT: No. COMMUNICATION: Per this written report. Drafted by Gertrude Lee MD on 01/23/2025 6:14 PM Final report signed by Gertrude Lee MD on 01/23/2025 6:15 PM us Colt Arzate MD IMG XR PROCEDURES Final Result * CO CRITICAL CARE, E/M 30-74 MINUTES (01/17/2025 9:14 AM EDT) Narrative Shelby Liao MD - 01/17/2025 9:14 AM EDT Shelby Liao MD 01/18/2025 8:00 AM Critical Care Performed by: Shelby Liao MD Authorized by: Shelby Liao MD Critical care provider statement: Critical care time (minutes): 35 Critical care time was exclusive of: Separately billable procedures and treating other patients and teaching time Critical care was time spent personally by me on the following activities: Development of treatment plan with patient or surrogate, discussions with consultants, discussions with primary provider, evaluation of patient's response to treatment, examination of patient, ordering and performing treatments and interventions, ordering and review of laboratory studies, ordering and review of radiographic studies, review of old charts and ventilator management Comments: I attest to being involved in more than half the total time for 35 minutes in patient care. Shelby Liao MD us Shelby Liao MD IN CLINIC/BEDSIDE ORDERABL ES Final Result * XR Hand Right 3+ Views (01/16/2025 9:18 AM EDT) Anatomical Region Laterality Modality Upper Extremities, Hand Right Digital Radiography Impressions 01/16/2025 9:35 AM EDT No acute osseous findings. CRITICAL RESULT: No. COMMUNICATION: Per this written report. Drafted by Td Church MD on 01/16/2025 9:32 AM Final report signed by Td Church MD on 01/16/2025 9:35 AM Narrative 01/16/2025 9:35 AM EDT CLINICAL INDICATION: Trauma/Injury or Tenderness to Palpation on Exam TECHNIQUE: XR HAND RIGHT 3+ VIEWS COMPARISON: None. FINDINGS: Exam obtained in semiflexion of the fingers, which limits evaluation of the phalanges. No obvious fractures or dislocations. Density over the projection of the volar wrist seen on lateral view. Soft tissue swelling the dorsal ulnar aspect of the wrist Procedure Note Td Ngo MD - 01/16/2025 CLINICAL INDICATION: Trauma/Injury or Tenderness to Palpation on Exam TECHNIQUE: XR HAND RIGHT 3+ VIEWS COMPARISON: None. FINDINGS: Exam obtained in semiflexion of the fingers, which limits evaluation ofthe phalanges. No obvious fractures or dislocations. Density over the projection of the volar wrist seen on lateral view. Soft tissue swelling the dorsal ulnar aspect of the wrist IMPRESSION: No acute osseous findings. CRITICAL RESULT: No. COMMUNICATION: Per this written report. Drafted by Td Church MD on 01/16/2025 9:32 AM Final report signed by Td Church MD on 59:35 AM us Scot Fields MD IMG XR PROCEDURES Final Re sult * CO CRITICAL CARE, E/M 30-74 MINUTES (01/13/2025 11:41 AM EDT) Narrative Scot Fields MD - 01/13/2025 11:41 AM EDT Scot Fields MD 01/22/2025 12:58 AM Critical Care Performed by: Scot Fields MD Authorized by: Scot Fields MD Critical care provider statement: Critical care time (minutes): 40 Critical care time was exclusive of: Separately billable procedures and treating other patients and teaching time Critical care was time spent personally by me on the following activities: Evaluation of patient's response to treatment, examination of patient, ordering and performing treatments and interventions, ordering and review of laboratory studies, ordering and review of radiographic studies, ventilator management and discussions with consultants I assumed subsequent critical care for this patient from a provider in my division, on the same day: no Comments: I attest to being involved in providing substantive time in patient care, totaling more than half of our combined time spent in patient care. I agree with the note as documented and personally directed or performed the medical decision making and documentation, performance of the exam, and obtaining subjective information. Ongoing ventilator support via tracheostomy. Titration of analgesia and treatment of storming. us Scot Fields MD IN CLINIC/BEDSIDE ORDERABL ES Final Result * Quantitative BAL/PAL/Bronch Wash Culture and Gram StainProtected Alveolar Lavage (01/12/2025 5:03 AM EDT) Culture No growth at day 2 2024 9:10 AM EDT [facility] Gram Stain Result Rare Polymorphonuclear leukocytes 01/14/2025 9:10 AM EDT [facility] Gram Stain Result No organisms seen 01/14/2025 9:10 AM EDT [facility] Protected Alveolar Lavage (Protected Alveolar Lavage) 01/12/2025 5:03 AM EDT 01/12/2025 5:51 AM EDT Casey ODONNELL LAB MICROBIOLOGY - GENERAL ORD ERABLES Final Result Performing Organization Address City/[facility]/ZIP Co de Phone Number [facility] [address] [place] [address] * Ionized calcium, whole blood (01/12/2025 2:17 AM EDT) Only the most recent of3 resultswithin the time period is included. Ionized Calcium, Whole Blood 4.6 4.6 - 5.1 mg/dL LAB HEMATOLOGY METHOD 01/12/2025 2:23 AM EDT [facility] Blood Venous blood specimen / Unknown Venipuncture / Unknown 01/12/2025 2:17 AM EDT 01/12/2025 2:21 AM EDT us Rajwinder Miller APRN LAB BLOOD ORDERABLES Final Result Performing Organization Address City/[facility]/ZIP Co de Phone Number [facility] [address] [place] [address] * Sodium, Plasma (01/11/2025 6:19 AM EDT) Only the most recent of10 resultswithin the time period is included. Sodium, Plasma 144 136 - 145 mmol/L 01/11/2025 6:54 AM EDT [facility] Blood Venous blood specimen / Unknown Venipuncture / Unknown 01/11/2025 6:19 AM EDT 01/11/2025 6:33 AM EDT us Ainsley Mccloud OTHER SPORTS COACH OR INSTRUCTOR LAB BLOOD ORDERABLES Florence l Result Performing Organization Address [facility] Co de Phone Number [facility] [address] [place] [address] * ECG Adult (01/10/2025 3:00 PM EDT) EKG DIAGNOSIS CLASS Abnormal MUSE ECG Ventricular Rate 118 BPM MUSE ECG Atrial Rate 118 BPM MUSE ECG CO Interval 136 ms MUSE ECG QRSD Interval 86 ms MUSE ECG QT Interval 304 ms MUSE ECG QTC Interval 426 ms MUSE ECG P [place] 80 degrees MUSE ECG R [place] 57 degrees MUSE ECG T Wave [place] 83 degrees MUSE ECG Diagnosis Sinus tachycardia MUSE ECG Diagnosis Nonspecific T wave abnormality MUSE ECG Diagnosis Abnormal ECG MUSE ECG Diagnosis MUSE ECG Diagnosis Confirmed by Branden Borrego ([id number]) on 01/10/2025 3:42:09 PM MUSE ECG 01/10/2025 3:00 PM EDT 01/10/2025 3:42 PM EDT Ainsley Mccloud OTHER SPORTS COACH OR INSTRUCTOR ECG ORDERABLES Final Res ult Performing Organization Address [facility] Co de Phone Number MUSE ECG * CO CRITICAL CARE, E/M 30-74 MINUTES (01/10/2025 2:25 PM EDT) Narrative Scot Fields MD - 01/10/2025 2:25 PM EDT Scot Fields MD 01/18/2025 5:29 PM Critical Care Performed by: Scot Fields MD Authorized by: Scot Fields MD Critical care provider statement: Critical care time (minutes): 35 Critical care time was exclusive of: Separately billable procedures and treating other patients and teaching time Critical care was time spent personally by me on the following activities: Evaluation of patient's response to treatment, examination of patient, ordering and performing treatments and interventions, ordering and review of laboratory studies, ordering and review of radiographic studies and ventilator management I assumed subsequent critical care for this patient from a provider in my division, on the same day: no Comments: I attest to being involved in providing substantive time in patient care, totaling more than half of our combined time spent in patient care. I agree with the note as documented and personally directed or performed the medical decision making and documentation, performance of the exam, and obtaining subjective information. Tracheostomy performed yesterday, continue mechanical support as required. Wean sedation to promote waking. Close sodium monitoring with correction. Monitor EKG with alterations in medications. us Scot Fields MD IN CLINIC/BEDSIDE ORDERABL ES Final Result * CO CRITICAL CARE, E/M 30-74 MINUTES (01/09/2025 5:29 PM EDT) Scot Ortega MD - 01/09/2025 5:29 PM EDT Scot Fields MD 01/10/2025 6:36 PM Critical Care Performed by: Scot Fields MD Authorized by: Scot Fields MD Critical care provider statement: Critical care time (minutes): 30 Critical care time was exclusive of: Separately billable procedures and treating other patients and teaching time Critical care was time spent personally by me on the following activities: Evaluation of patient's response to treatment, examination of patient, ordering and performing treatments and interventions, ordering and review of laboratory studies, ordering and review of radiographic studies, ventilator management and development of treatment plan with patient or surrogate I assumed subsequent critical care for this patient from a provider in my division, on the same day: no Comments: I attest to being involved in providing substantive time in patient care, totaling more than half of our combined time spent in patient care. I agree with the note as documented and personally directed or performed the medical decision making and documentation, performance of the exam, and obtaining subjective information. Re-intubated for ongoing hypoxic respiratory failure with failed extubation secondary to his injury with inability to support ventilation. He will require tracheostomy which we are performing today. us Scot Fields MD IN CLINIC/BEDSIDE ORDERABL ES Final Result * CO TRACHEOSTOMY, PLANNED (01/09/2025 5:25 PM EDT) Scot Ortega MD - 01/09/2025 5:25 PM EDT Scot Fields MD 01/10/2025 6:34 PM Tracheostomy Placement Performed by: Garfield Perez DO Authorized by: Scot Fields MD Indications for this procedure include: Respiratory failure This was: A planned procedure Consent: Consent obtained: Written and verbal Consent given by: Family member Risks discussed: Pneumothorax and bleeding Timeout: Immediatly prior to procedure, a time out was called: Yes Patient identity confirmed: Hospital-assigned identification number and arm band Sterile prep and drape performed per hospital policy Local anesthesia with 1% Lidocaine with Epinephrine The method used was: Percutaneous tracheostomy with bronchoscopy Tracheostomy tube size used (mm): 6 The placement was confirmed by: C02 indicator and bronchoscopy The procedure was performed: Without difficulty The patient tolerated the procedure: Well There were no complications Agents used: Fentanyl IV mg given: 150 Midazolam (Versed) IV mg given: 10 Other agent: Etomidate mg given: 40 us Scot Fields MD IN CLINIC/BEDSIDE ORDERABL ES Final Result * XR Abdomen 1 View (01/09/2025 8:52 AM EDT) Anatomical Region Laterality Modality Body Digital Radiogra phy Impressions 01/09/2025 9:46 AM EDT Minimal gaseous distention of the stomach. Nonobstructive bowel gas pattern. CRITICAL RESULT: No. COMMUNICATION: Per this written report. Drafted by Rocío Villegas DO on 01/09/2025 9:44 AM Final report signed by Rocío Villegas DO on 01/09/2025 9:46 AM Narrative 01/09/2025 9:46 AM EDT CLINICAL INDICATION: eval gastric distension TECHNIQUE: XR ABDOMEN 1 VIEW COMPARISON: 01/02/2025 FINDINGS: Feeding tube tip in the mid stomach. Surgical shi along the abdominal midline and right pelvis. Surgical clips throughout the lower abdomen. Sacroiliac screw fixation. Minimal gaseous distention of the stomach. Nonobstructive bowel gas pattern. No pneumoperitoneum. Procedure Note Rocío Villegas DO - 01/09/2025 CLINICAL INDICATION: eval gastric distension TECHNIQUE: XR ABDOMEN 1 VIEW COMPARISON: 01/02/2025 FINDINGS: Feeding tube tip in the mid stomach. Surgical shi along the abdominalmidline and right pelvis. Surgical clips throughout the lower abdomen.Sacroiliac screw fixation. Minimal gaseous distention of the stomach.Nonobstructive bowel gas pattern. No pneumoperitoneum. IMPRESSION: Minimal gaseous distention of the stomach. Nonobstructive bowel gas pattern. CRITICAL RESULT: No. COMMUNICATION: Per this written report. Drafted by Rocío Villegas DO on 01/09/2025 9:44 AM Final report signed by Rocío Villegas DO on 01/09/2025 9:46 AM Rajwinder Walden Miller OTHER SPORTS COACH OR INSTRUCTOR IMG XR PROCEDURES Final Re sult from [place] [address] [place] [address] [employer] Advance Directives Documents on File Type Date Recorded Patient Manager Country Expl anation Power of Phlebotomy Program Coordinator 01/24/2025 Emergency guardianship Care Teams Water Pump Installer Relationship Specialty Start Date End Date Tammy Tran MD [address] [place] [address] PCP - General 03/28/25
--- OUTSIDE RECORDS SUMMARY | 2025-04-11 14:26 | XMS_ITS | Encounter Summary ---
Author Organization [facility] Address [address] [place] [address] Care Team Providers Care Potato Chip Maker Name Role Phone Pcp, No Primary Care Provider UnavailEbony Flower LPN Unavailable Unavailable Tammy Tran MD Primary Care Provider [phone]- [phone] Encounter Details Date Type Department Care Team (Late Contact Info) Description 01/30/2025 Lab Requisition [facility] [address] [place] [address] Gilson Newman, DO [address] [place] [address] Encounter for general adult medical examination without abnormal findings Social History Tobacco Use Types Packs/Day Years [...] Encounters Date Type Department Care Team (Late Contact Info) Description 04/21/2025 1:50 PM EDT Appointment [facility] Radiology [address], [address] [place] [address] 04/21/2025 2:30 PM EDT Office Visit [facility] Orthopaedic Surgery & Sports Medicine [address], [address] [place] [address] Quan Martinez MD [address] [place] [address] 04/22/2025 2:30 PM EDT Office Visit [facility] [address] [place] [address] Dayna Cuevas 05/11/2025 2:00 PM EDT Office Visit [facility] [address] [place] [address] Bina Mercado DO [address] [facility] [address] [place] [address] 06/06/2025 2:30 PM EST Office Visit [facility] [address] [place] [address] Syd Vargas MD [address] [place] [address] 07/01/2025 12:40 PM EST [facility] [address] [place] [address] Holland Mehta MD [address] [place] [address] documented as of this encounter Procedures Procedure Name Priority Date/Time Associated Diagnosis Comments PAIN MANAGEMENT, QUANTITATIVE URINE DRUG TESTING Routine 01/30/2025 6:00 AM EDT Encounter for general adult medical examination without abnormal findings PAIN MANAGEMENT, QUANTITATIVE URINE DRUG TESTING Routine 01/30/2025 6:00 AM EDT Encounter for general adult medical examination without abnormal findings documented in this encounter Results * (ABNORMAL) Pain Management, Quantitative Urine Drug Testing (01/30/2025 6:00 AM EDT) [facility] Alprazolam <20 <20 ng/mL 02/01 3:21 PM EDT [facility] [place] Midazolam <20 <20 ng/mL 2024 3:21 PM EDT [facility] [place] Triazolam <20 <20 ng/mL 2024 3:21 PM EDT [facility] Alprazolam <10 <10 ng/mL 02/01/2025 3:21 PM EDT [facility] Aminoclonazepam <20 <20 ng/mL 3:21 PM EDT [facility] Amphetamine <50 <50 ng/mL 02/01/2025 3:21 PM EDT [facility] Benzoylecgonine <50 <50 ng/mL 3:21 PM EDT [facility] Buprenorphine <10 <10 ng/mL 02/01/2025 3:21 PM EDT [facility] Buprenorphine Glucuronide <50 <50 ng/mL 02/01/2025 3:21 PM EDT [facility] Butalbital <50 <50 ng/mL 02/01/2025 3:21 PM EDT [facility] 9 Carboxy THC <10 <10 ng/mL 02/01/2025 3:21 PM EDT [facility] 9 Carboxy THC Glucuronide 316(H) <25 ng/mL 02/01/2025 3:21 PM EDT [facility] Clonazepam <10 <10 ng/mL 02/01/2025 3:21 PM EDT [facility] Codeine <50 <50 ng/mL 02/01/2025 3:21 PM EDT [facility] Codeine Glucuronide <50 <50 ng/mL 02/01 3:21 PM EDT [facility] Cyclobenzaprine <50 <50 ng/mL 3:21 PM EDT [facility] Desmethyl Tramadol <50 <50 ng/mL 2024 3:21 PM EDT [facility] Diazepam <10 <10 ng/mL 02/01/2025 3:21 PM EDT [facility] EDDP - Methadone Metabolite <50 <50 ng/mL 02/01/2025 3:21 PM EDT [facility] Fentanyl <1 <1 ng/mL 02/01/2025 3:21 PM EDT [facility] Hydrocodone <50 <50 ng/mL 02/01/2025 3:21 PM EDT [facility] Hydromorphone <50 <50 ng/mL 02/01/2025 3:21 PM EDT [facility] Hydromorphone Glucuronide <50 <50 ng/mL 02/01/2025 3:21 PM EDT [facility] Lorazepam <20 <20 ng/mL 02/01/2025 3:21 PM EDT [facility] Lorazepam Glucuronide <50 <50 ng/mL 02/01/2025 3:21 PM EDT [facility] MDA <50 <50 ng/mL 02/01/2025 3:21 PM EDT [facility] MDMA <50 <50 ng/mL 02/01/2025 3:21 PM EDT [facility] Meperidine <50 <50 ng/mL 02/01/2025 3:21 PM EDT [facility] Methadone <50 <50 ng/mL 02/01/2025 3:21 PM EDT [facility] Methamphetamine <50 <50 ng/mL 3:21 PM EDT [facility] Methylphenidate <50 <50 ng/mL 3:21 PM EDT [facility] 6 Monoacetyl morphine <10 <10 ng/mL 02/01/2025 3:21 PM EDT [facility] Morphine <50 <50 ng/mL 02/01/2025 3:21 PM EDT [facility] Morphine Glucuronide <50 <50 ng/mL 01/12 3:21 PM EDT [facility] Naloxone <50 <50 ng/mL 02/01/2025 3:21 PM EDT [facility] Naloxone Glucuronide <50 <50 ng/mL 01/12 3:21 PM EDT [facility] Norbuprenorphine <10 <10 ng/mL 02/02/20 3:21 PM EDT [facility] Norbuprenorphine Glucuronide <50 <50 ng/mL 02/01/2025 3:21 PM EDT [facility] Nordiazepam <20 <20 ng/mL 02/01/2025 3:21 PM EDT [facility] Norfentanyl <2 <2 ng/mL 02/01/2025 3:21 PM EDT [facility] Normeperidine <50 <50 ng/mL 02/01/2025 3:21 PM EDT [facility] PCP Quant, Ur <50 <50 ng/mL 02/01/2025 3:21 PM EDT [facility] Phenobarbital <50 <50 ng/mL 02/01/2025 3:21 PM EDT [facility] Oxazepam <20 <20 ng/mL 02/01/2025 3:21 PM EDT [facility] Oxazepam Glucuronide <50 <50 ng/mL 01/12 3:21 PM EDT [facility] Oxycodone 820(H) <50 ng/mL 02/01/2025 3:21 PM EDT [facility] Oxymorphone <50 <50 ng/mL 02/01/2025 3:21 PM EDT [facility] Oxymorphone Glucuronide >1,000(H) <50 ng/mL 02/01/2025 3:21 PM EDT [facility] Secobarbital <50 <50 ng/mL 02/01/2025 3:21 PM EDT [facility] Tramadol <50 <50 ng/mL 02/01/2025 3:21 PM EDT [facility] Temazepam <20 <20 ng/mL 02/01/2025 3:21 PM EDT [facility] Temazepam Glucuronide <50 <50 ng/mL 02/01/2025 3:21 PM EDT [facility] Urine Urine specimen obtained by clean catch procedure / Unknown 01/30/2025 6:00 AM EDT 01/30/2025 9:01 AM [facility]T [facility] 02/01/[facility]25 3:21 PM EDT This [...] laboratory. Test performed by LC-MS/MS at the [facility]. This test was developed and its performance characteristics determined by [facility]. It has not been cleared or approved by the FDA. The laboratory is regulated under CLIA as qualified to perform high-complexity testing. This test is used for clinical purposes. Gilson Newman DO LAB URINE ORDERABLES Final Resu lt [facility] [address] [place] [address] documented in this encounter Visit Diagnoses Diagnosis Encounter for general adult medical examination without abnormal findings documented in this encounter Additional Health Concerns Assessment Noted Time A Body Mass Index follow-up plan has been documented for the patient 01/27/2025 2:52 PM EDT documented as of this encounter Care Teams Potato Chip Maker Relationship Specialty Start Date End Date Pcp, No [address] [place] [address] PCP - General Family Medicine 11/26/24 03/27/25 Tammy Tran MD [address] [place] [address] PCP - General 03/28/25 Ebony Ross LPN VALUE-BASED [place] [address] TCM Nurse 02/08/25 03/26/25 documented as of this encounter
--- OUTSIDE RECORDS SUMMARY | 2025-04-11 14:26 | XMS_ITS | Encounter Summary ---
Author Organization [facility] Address [address] [place] [address] Care Team Providers Care Record Pressman Name Role Phone Pcp, No Primary Care Provider Unavailflavio e Ebony Ross LPN Unavailable Unavailable Encounter Details Date Type Department Care Team (Latest Contact Info) Description 03/04/2025 Travel Social History Tobacco Use Types Packs/Day [...] any time in the past 12 m [facility], were you homeless or living in a fdc (including now)? Patient declined 03/04/2025 Utilities Answer Date Recorded In the past 12 months has th e [employer], gas, oil, or water company threatened to [...] EDT Appointment [facility] Radiology [address], [address] [place] [address] 04/21/2025 2:30 PM EDT Office Visit [facility] Orthopaedic Surgery & Sports Medicine [address], [address] [place] [address] Quan Martinez MD [address] [place] [address] 04/22/2025 2:30 PM EDT Office Visit [facility] [address] [place] [address] Dayna Cuevas 05/11/2025 2:00 PM EDT Office Visit [facility] at [facility] [address] [place] [address] Bina Mercado DO [address] [place] [address] 06/06/2025 2:30 PM EST Office Visit [facility] [address] [place] [address] Syd Vargas MD [address] [place] [address] 07/01/2025 12:40 PM EST Office Visit [place] [facility] [address], [address] [place] [address] Holland Mehta MD [address] [place] [address] documented as of this encounter Visit Diagnoses Not on filedocumented in this encounter Additional Health Concerns Assessment Noted Time A Body Mass Index follow-up plan has been documented for the patient 03/04/2025 2:24 PM EDT documented as of this encounter Care Teams Record Pressman Relationship Specialty Start Date End Date Pcp, Bhumi [address] [place] [address] PCP - General Family Medicine 11/26/24 03/27/25 Ebony Ross LPN VALUE-[employer]ED [place] [address] TCM Nurse 02/08/25 03/26/25 documented as of this encounter
--- OUTSIDE RECORDS SUMMARY | 2025-04-11 14:26 | XMS_ITS | Encounter Summary ---
Author Organization Healthcare Address [address] [place] [address] Care Team Providers Care Policy Director Name Role Phone Pcp, No Primary Care Provider Unavailflavio e Ebony Ross LPN Unavailable Unavailable Encounter Details Date Type Department Care Team (Late st Contact Info) Description 03/03/2025 Telephone CASE MANAGEMENT [address] [place] [address] Carmencita Mcgrath Social History Tobacco Use Types [...] any time in the past 12 m [facility], were you homeless or living in a [...] * Telephone Encounter - Carmencita Mcgrath - 03/03/2025 9:32 AM EDT SW called pt's mother to follow up regarding transportation needs. Per pt's mother, Medicaid transportation is scheduled to bring pt to and from his upcoming appointment. SW encouraged to call back if anything should change. documented in this encounter Plan of Treatment Upcoming Encounters Date Type Department Care Team (Late st Contact Info) Description 04/21/2025 1:50 PM EDT Appointment [facility] Radiology [address], [address]st [place] [address] 04/21/2025 2:30 PM EDT Office Visit [facility] Orthopaedic Surgery & Sports Medicine [address], [address] [place] [address] Quan Martinez MD [address] [place] [address] 04/22/2025 2:30 PM EDT Office Visit [facility] [address] [place] [address] Harrison Chandler Dayna Pedro Luis 05/11/2025 2:00 PM EDT Office Visit [facility] Rehabilitation Clinic at [facility] [address] [place] [address] Bina Mercado DO [address] [facility] [address] [place] [address] 06/06/2025 2:30 PM EST Office Visit [facility] [address] [place] [address] Syd Vargas MD [address] [facility] 2nd [place] [address] 07/01/2025 12:40 PM EST Office Visit [place] [facility] [address], [address] [place] [address] Holland Mehta MD [address] [place] [address] documented as of this encounter Visit Diagnoses Not on filedocumented in this encounter Additional Health Concerns Assessment Noted Time A Body Mass Index follow-up plan has been documented for the patient 01/27/2025 2:52 PM EDT documented as of this encounter Care Teams Policy Director Relationship Specialty Start Date End Date Pcp, [place] [address] PCP - General Family Medicine 11/26/24 03/27/25 Ebony Ross LPN VALUE-BASED [place] [address] TCM Nurse 02/08/25 03/26/25 documented as of this encounter
--- OUTSIDE RECORDS SUMMARY | 2025-04-11 14:26 | XMS_ITS ---
Author Organization [facility] Address [address] [place] [address] Care Team Providers Care Field Reimbursement Manager Name Role Phone Tammy Tran MD Primary Care Provider +1- [phone] Transitional Care Management Status:Closed (Closed) Start date:02/24/2025 Enrollment date:02/24/2025 Enrollment reason:Identified using hospital discharge data End date:03/26/2025 Close reason:Patient graduated Overview This episode type is for outpatient care managers enrolling patients in the [facility] Transitional Care Management program. Continued Care and Services Coordination
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
--- OUTSIDE RECORDS SUMMARY | 2025-04-11 14:27 | XMS_ITS | Encounter Summary ---
Author Organization [facility] Address [address] [place] [address] Care Team Providers Care Warehouse General Laborer Name Role Phone Pcp, No Primary Care Provider Unavailabl e Ebony Ross LPN Unavailable Unavailable Reason for Visit * Reason Comments TCM Encounter Details Date Type Department Care Team (Late st Contact Info) Description 02/24/2025 Patient Outreach [facility] [address] [place] [address] Ebony Ross LPN [employer] [place] [address] TCM Social History Tobacco Use Types Packs/Day [...] any time in the past 12 m [facility], were you homeless or living in a skilled nursing (including now)? Patient declined 02/24/2025 Utilities Answer Date Recorded In the past 12 months has th e [employer], gas, oil, or water [employer] threatened to shut off services in your [...] Appointment [facility] Radiology [address] [place] [address] 04/21/2025 2:30 PM EDT Office Visit [facility] Orthopaedic Surgery & Sports Medicine [address], [address] [place] [address] Quan Martinez MD [address] [place] [address] 04/22/2025 2:30 PM EDT Office Visit [facility] [address] [place] [address] Harrison Dayna Chandler Pedro Luis 05/11/2025 2:00 PM EDT Office Visit [facility] [address] [place] [address] Bina Mercado DO [address] [place] [address] 06/06/2025 2:30 PM EST Office Visit [facility] [address] [place] [address] Syd Vargas MD [address] [place] [address] 07/01/2025 12:40 PM EST Office Visit [place] [facility] [address] [place] [address] Holland Mehta MD [address] [place] [address] documented as of this encounter Visit Diagnoses Not on filedocumented in this encounter Additional Health Concerns Assessment Noted Time A Body Mass Index follow-up plan has been documented for the patient 01/27/2025 2:52 PM EDT documented as of this encounter Care Teams Warehouse General Laborer Relationship Specialty Start Date End Date Pcp, Bhumi [address] [place] [address] PCP - General Family Medicine 11/26/24 03/27/25 Ebony Ross LPN [employer] [place] [address] TCM Nurse 02/08/25 03/26/25 documented as of this encounter
--- NOTE | 2025-04-11 15:00 | US_ITS ---
FINAL REPORT TECHNIQUE: Ultrasound images of the kidneys were obtained. CLINICAL HISTORY: UTI COMPARISON: None FINDINGS: RENAL ULTRASOUND Limited images of the liver parenchyma demonstrate normal echogenicity. The right kidney measures 11.2 cm in length. It is normal echogenicity. There is no hydronephrosis. The left kidney measures 9.8 cm in length. It is normal echogenicity. There is no hydronephrosis. IMPRESSION: Normal renal ultrasound. Reviewed, Interpreted and Dictated by Vinicius Perry MD Transcribed by Nuris Ryan Authenticated and . [facility]
[2025-04-11 17:02] LABS: Blood Urea Nitrogen 9 mg/dl (9-20); Creatinine,Serum 0.50 mg/dl (0.66-1.25); Estimated Glomerular Filt Rate 204 ml/min (>60); GFR (African American) 247 ML/MIN (>60)
== END 2025-04-11 23:59 | disposition home or self-care (01) ==
PROVIDERS: PCP Family Medicine; Visit Provider Urology
DX: N31.9 Neuromuscular dysfunction of bladder, unspecified (principal); N39.0 Urinary tract infection, site not specified; Z96.7 Presence of other bone and tendon implants
CPT/HCPCS: 36415; 74018; 76770; 82565; 84520